=== PATIENT | female | born 1980 | race Caucasian/White ===

== ENCOUNTER 2019-09-28 10:26 | Emergency (ER) | payer OTHER, SELFPAY ==
--- NOTE | ~2019-09-28 | XR_ITS ---
EXAMINATION: XR ankle LT min 3V DATE: 09/28/2019 11:00 INDICATION: Left ankle pain. Fall. TECHNIQUE: 4 views of left ankle were obtained. COMPARISON: None. FINDINGS: There is an oblique fracture of distal fibula with medial aspect of the fracture line 2 mm distal to the level of the tibial plafond. The distal fracture fragment demonstrates 2 mm posterolate ral displacement. Joint spaces are normal. There is an enthesophyte at posterior aspect of calcaneal tuberosity. There is ankle soft tissue swelling. IMPRESSION: 1. Oblique fracture of distal fibula. Reviewed, dictated and finalized at location A.
[2019-09-28 10:44] VITALS: BP 105/68; PULSE 108; RESP 16; TEMP 37.1; O2SAT 99
--- NOTE | 2019-09-28 11:15 | ED.LOWEXIN ---
HPI - Extremity Injury (Lower) General Chief Complaint: Extremity Injury, Lower Stated Complaint: Injury Right Ankle Time Seen by Provider: 09/28/19 11:04 Source: patient and RN notes reviewed Mode of arrival: ambulatory Limitations: no limitations History of Present Illness HPI Narrative: Patient presents today complaining of left ankle injury. She was rollerskating in her kitchen just prior to arrival, slipped in some water and twisted her ankle, falling at home. She did elevate her leg for approximately 30 minutes prior to arrival, but has taken no medication or applied any ice. She currently rates her pain 6/10. Pain increases with movement. Reports previous fracture in same ankle in 1991. complaint: ankle injury Related Data Home Medications Medication Instructions Recorded Confirmed Wellbutrin XL 09/28/19 buspirone 09/28/19 omeprazole 09/28/19 Allergies Allergy/AdvReac Type Severity Reaction Status Date / Time No Known Allergies Allergy Unverified 02/03/19 11:42 Review of Systems Review of Systems: Narrative: CONSTITUTIONAL: Denies body aches, fever, chills, or sweats. EYES: Denies visual changes, redness, or discharge. ENT: Denies rhinorrhea, congestion, sore throat, or otalgia. CARDIOVASCULAR: Denies chest pain, palpitations, or edema. RESPIRATORY: Denies cough or dyspnea. GASTROINTESTINAL: Denies abdominal pain, nausea, vomiting, or diarrhea. GENITOURINARY: Denies dysuria or hematuria. SKIN: Denies rash, itching, or wounds. MUSCULOSKELETAL: Denies back pain, or myalgia.+ Left ankle injury NEUROLOGIC: Denies headache, numbness, tingling, or weakness. PSYCH: Denies depression or anxiety. PMFSH Comments At time of signature, I have reviewed and agree with nursing past medical, surgical, social and family history unless otherwise noted. Please see nursing chart for further information. There is no relevant family history pertinent to the presenting complaint Exam Narrative: Exam Narrative: GENERAL: Well-appearing, well-nourished, and in no acute distress. HEAD: Normocephalic, atraumatic. EYES: EOMI. No redness or drainage. ENT: Mucous membranes pink and moist. NECK: Normal AROM. CHEST: No respiratory distress. EXTREMITIES: Left ankle: Tenderness to the lateral malleolus with moderate edema and ecchymosis. Distal sensation intact in all toes. Capillary refill normal. Pedal pulse normal. AROM of the ankle and toes is limited due to pain, but is present. All other extremities grossly normal. SKIN: Warm, dry, no rash. Capillary refill normal. Normal skin turgor. NEURO: No focal deficits. Alert and oriented x3. Gait steady. PSYCH: Normal affect. No signs of depression or anxiety. Course Vital Signs Vital signs: Vital Signs Temperature 98.7 F 09/28/19 10:44 Pulse Rate 108 H 09/28/19 10:44 Respiratory Rate 16 09/28/19 10:44 Blood Pressure 105/68 09/28/19 10:44 Pulse Oximetry 99 09/28/19 10:44 Temperature 98.7 F 09/28/19 10:44 Pulse Rate 108 H 09/28/19 10:44 Respiratory Rate 16 09/28/19 10:44 Blood Pressure 105/68 09/28/19 10:44 Pulse Oximetry 99 09/28/19 10:44 Reviewed Procedures Orthopedic Splinting/Casting Injury #1: Splinting/Casting Date: 09/28/19 Splinting/Casting Time: 11:22 Side: left Lower Extremity Injury Location: ankle Lower Extremity Immobilizer: posterior splint Splint: customized in ED OCL: posterior Pre-Procedure Neuro Vascular Exam: normal Post-Procedure Neuro Vascular Exam: normal Other Orthopedic Equipment: crutches MDM - Extremity Injury (Lower) Differential Diagnosis Differential diagnosis: Likely ankle sprain and strain and ankle fracture Imaging Data Radiologist's impression: ITS Impressions Ankle X-Ray 09/28/19 11:06 IMPRESSION: 1. Oblique fracture of distal fibula. Critical Care Time Critical Care Time Critical Care Time: No
== END 2019-09-28 11:55 | disposition home or self-care (01) ==
PROVIDERS: Emergency Provider Nurse Practitioner
DX: S82.832A Other fracture of upper and lower end of left fibula, initial encounter for closed fracture (principal); V00.121A Fall from non-in-line roller-skates, initial encounter; Y93.51 Activity, roller skating (inline) and skateboarding
CPT/HCPCS: 29515; 73610; 99214; G0463

== ENCOUNTER 2019-09-29 12:50 | Outpatient (CLI) | payer OTHER, SELFPAY ==
[2019-09-29 14:09] LABS: Vitamin D 25 Hydroxy 12.8 ng/mL
== END 2019-09-29 12:51 | disposition home or self-care (01) ==
PROVIDERS: PCP Family Medicine; Visit Provider Orthopaedic Surgery
DX: E55.9 Vitamin D deficiency, unspecified (principal)
CPT/HCPCS: 36415; 82306; 87081

== ENCOUNTER 2019-10-02 00:33 | Day surgery (SDC) | payer OTHER, SELFPAY ==
--- NOTE | 2019-09-29 13:11 | HP_ITS ---
DATE OF SERVICE: DIAGNOSIS: Left ankle lateral malleolus fracture. HISTORY: The patient is a 39-year-old female, who has been evaluated by Dr. Sterling for following a fall on 09/27 when she was roller-skating, she twisted her left ankle, had immediate pain and she went to the [facility] in [place], had x-rays done, which showed a Spicer B lateral malleolus fracture. She was seen in the office on 09/28. At that time, the patient's states that after she was at the urgent care, she had fell again. X-rays were repeated in the office of the ankle, they do show the lateral malleolus fracture, Spicer B style. It also showed widening of the medial clear space as well. Because of the widening, Dr. Sterling has recommended ORIF of the lateral malleolus. This is an unstable fracture. PAST MEDICAL HISTORY: None. MEDICATIONS: Currently, she is on no medications except for pain medicine from the ER. ALLERGIES: NO KNOWN DRUG ALLERGIES. FAMILY HISTORY: Diabetes, heart disease. SOCIAL HISTORY: She does smoke for the last 2 years. Occasional alcohol use. PHYSICAL EXAMINATION: VITAL SIGNS: Height is 5 feet 3 inches, 180 pounds. LUNGS: Clear bilaterally. HEART: Regular rate and rhythm. HEENT: Grossly normal. EXTREMITIES: In her left ankle, she has mild to moderate swelling around the ankle and the foot. She does have intact sensation, but does complain of tingling in the dorsum of the foot in the toes. She does have a palpable dorsalis pedis pulse. SKIN: All intact. There is no blistering noted. She has no tenderness about the knee. IMAGING: X-rays again show a Spicer B lateral malleolus fracture with mild widening of the medial clear space. IMPRESSION: The patient has an unstable Spicer B lateral malleolus fracture. Again, because of the fracture being unstable, Dr. Sterling recommend an ORIF of the lateral malleolus with possible syndesmotic fixation with tight rope fixation. Once the malleolus is fixed, we will check for stability and decide whether or not syndesmotic fixation needs to be done. Surgical procedure as well as risks and complications were discussed. All questions were answered and we will proceed. The patient was advised she needs to quit smoking. We will check 25 hydroxyvitamin D as well. The patient was advised if she does not keep the ankles elevated over the course of the weekend, keep swelling down at the time of surgery. If she is too swollen or she starts to have blister, surgery may need to be delayed because of that. D I MT: Carl
[2019-09-29 18:35] VITALS: BMI 32.4
[2019-10-02] VITALS (11 sets, daily range): BP systolic 105–155; BP diastolic 59–93; PULSE 77–108; RESP 12–23; TEMP 36.2–36.6; O2SAT 92–97
--- NOTE | ~2019-10-02 | XR_ITS ---
EXAMINATION: XR surgery orthopedic DATE: 10/02/2019 11:47 INDICATION: ORIF left ankle fracture TECHNIQUE: 5 fluoroscopic spot images of the left ankle were obtained during procedure performed by Mary Sterling. Radiologist was not present for the imaging or procedure. The amount of fluoroscopy time used during this procedure was 1.3 minutes. COMPARISON: 09/28/2019 FINDINGS: Interval reduction and internal fixation of an oblique fracture of the left lateral malleolus with in terfragmentary screw and lateral plate and screws. Alignment appears near-anatomic with congruent ank le mortise. No other fractures identified. Joint spaces are normal. IMPRESSION: 1. Near-anatomic alignment post reduction and internal fixation of a lateral malleolar fracture of th e distal left fibula. Reviewed, dictated and finalized at location A. IMPRESSION: 1. Near-anatomic alignment post reduction and internal fixation of a lateral ma lleolar fracture of the distal left fibula.
--- NOTE | 2019-10-02 07:24 | WPDANESEPPF ---
Anes - Initial Pre Proc Eval Procedure: Operation Date: 10/02/19 10:00 Proposed Procedures p Open Reduction Internal Fixation Left Ankle Fracture - Isaiah Sterling MD Date/Time: 10/02/19 07:24 Surgeon: Isaiah Sterling MD Pre Op Diagnosis: Displaced Left Lateral Malleolus Fracture Patient Data Age: 39 Gender: F Height: 5 ft 3 in Weight: 83 kg Allergies Allergy/AdvReac Type Severity Reaction Status Date / Time No Known Allergies Allergy Unverified 10/02/19 08:06 Home Medications Medication Instructions Recorded Confirmed Type omeprazole 20 mg PO DAILY 09/28/19 10/02/19 History ibuprofen 400 mg PO Q6H PRN 09/29/19 10/02/19 History oxycodone-acetaminophen 1 - 2 tablet PO Q4H PRN 09/29/19 10/02/19 History Patient hx anesthesia problems: none Family hx anesthesia problems: none PMFSH Past Medical History Medical History (Updated 10/02/19 @ 07:24 by Markus Hannon MD) Anxiety GERD (gastroesophageal reflux disease) Social History Social History Gender identity (if verbalized by the patient): Female Anes - Eval Final PreProcedure Day of Procedure 10/02/19 07:24 Patient weight: obese Heart: regular rate and rhythm Lungs: clear to auscultation Airway: Mallampati scale class II Neurological: alert and oriented Last oral intake: >/= 8 hours ASA classification: II Emergent: no Anesthetic plan: proceed Anesthesia type and monitoring: general LMA and standard monitoring Informed Consent: The patient's anesthetic plan and its attendant risks and benefits were discussed with the patient/family/POA. Questions were solicited and answers provided to the satisfaction of the patient/family/POA.
[2019-10-02] MEDS: LACTATED RINGERS 1,000 ML 30 ML IV CONT ×2 (08:45→11:59)
--- NOTE | 2019-10-02 10:03 | WPDHPUPDATE1 ---
History and Physical Update Update Date/Time: 10/02/19 10:03 History and Physical has been reviewed, including an updated exam of the patient. There are NO changes in the patient's condition. Risks, benefits, and alternatives have been discussed and questions answered. Patient agrees to proceed with procedure.Numbness in foot much better. Swelling improved and mild
[2019-10-02] MEDS: ceFAZolin 2 GM/D5W 50 ML 2 GM/50 ML BAG IVPB (10:42)
[2019-10-02] MEDS: IBUPROFEN IV 800 MG/200 ML 800 MG/200 ML BAG 400 MG IVPB (10:45)
[2019-10-02] MEDS: ceFAZolin SODIUM 1 GM VIAL IRRIGATION (11:04)
[2019-10-02] MEDS: ceFAZolin SODIUM 1 GM VIAL IV PUSH (11:40)
--- NOTE | 2019-10-02 11:50 | P.OP_ITS ---
Procedure Note - Detailed Date of procedure: 10/02/19 Pre-op diagnosis: Displaced Left Lateral Malleolus Fracture SER grade 4 left lateral malleolus fracture. Post-op diagnosis: same Procedure performed: Open reduction internal fixation left lateral malleolus fracture. Description of procedure: Patient brought to the operatin room and general anesthesia was administered. the left ankle was prepped with chlorhexidine cloth. She received 2 g of Ancef and 1 g of vancomycin preoperatively. The left ankle was examined under fluoro and there was jorge luis widening of the medial clear space with external rotation. I could not appreciate any additional widening of the syndesmosis so between the shaft and the tibia. the left leg was prepped draped usual fashion. Limb was exsanguinated tourniquet elevated to 300 mm of mercury. A 4 inch longitudinal incision was made over the distal fibula centered over the fracture site. dissection was carried down through the skin to the periosteum and I looked for but did not visualize the superficial branch of peroneal nerve. with a 15 blade scalpel a few mm of periosteum was elevated off the shaft in the distal fragment adjacent to the fracture line and the fracture was cleared of little bit of entrapped soft tissue and hematoma. Anatomic reduction was achieved and held with 2 clamps. An interfragmentary screw was placed through a gliding hole 2.7 mm anterior to posterior. A 6 hole 1/3 tubular locking plate from the [employer] set was chosen and this was carefully contoured and after irrigation with antibiotic solution the plate and wound plate was applied and compressed the bone with a cortical screw through the 3rd from most proximal hole. Two locking screws were placed in the lateral malleolus fragment and 2 additional cortical screws placed proximally leaving 1 hole over the fracture site and inner fragmentary screw open. We placed a towel clip on the lateral malleolus and pulled on the lateral malleolus under fluoroscopic visualization there is no widening of the syndesmosis and the external rotation abduction stress on the foot showed no widening of medial clear space whatsoever. The wound was again irrigated antibiotic solution tourniquet had been released. Hemostasis was achieved. incision was closed with 3 0 subcuticular inter subcutaneous Vicryl and skin glue and a well-padded OCL type splint was applied the patient transferred postop recovery room stable condition. [facility] Surgeon: Isaiah Sterling MD Assistant City Attorney: Shawn More Estimated blood loss (mL): 20 Drains: No Packing: No Pathology: none sent Complications: No immediate complications Condition: stable Disposition: PACU Findings: I cancellous and cortical bone quality appeared excellent.
== END 2019-10-02 14:49 | disposition home or self-care (01) ==
PROVIDERS: PCP Family Medicine; Visit Provider Orthopaedic Surgery
PROC: (CPT 27792; principal; 2019-10-02 10:00)
DX: S82.62XA Displaced fracture of lateral malleolus of left fibula, initial encounter for closed fracture (principal); V00.121A Fall from non-in-line roller-skates, initial encounter; Y93.51 Activity, roller skating (inline) and skateboarding; K21.9 Gastro-esophageal reflux disease without esophagitis; F41.9 Anxiety disorder, unspecified; E66.9 Obesity, unspecified; Z68.35 Body mass index [BMI] 35.0-35.9, adult; Z72.0 Tobacco use
CPT/HCPCS: 27792; A9270; C1713; J0690; J1100; J1170; J1741; J2250; J2405; J2704; J3010; J3370; J7120

== ENCOUNTER 2020-06-21 07:45 | Emergency (ER) | payer OTHER, SELFPAY ==
[2020-06-21] VITALS (16 sets, daily range): BP systolic 119–144; BP diastolic 70–106; PULSE 76–96; RESP 12–122; TEMP 36.3; O2SAT 98–100
--- NOTE | ~2020-06-21 | CT_ITS ---
EXAMINATION: CT abdomen pelvis wo con DATE: 06/21/2020 08:30 INDICATION: Right flank pain. TECHNIQUE: Computed tomography (CT) of the abdomen and pelvis was performed without intravenous contr ast. Automated exposure control and iterative reconstruction technique were employed. The dose-length product was 1071.05 mGy-cm. COMPARISON: CT abdomen and pelvis 02/03/2019 FINDINGS: The visualized portions of the lung bases demonstrate minimal atelectasis. No pleural effus ion. The heart size is normal. No pericardial effusion. The liver is normal. There are gallstones in the gallbladder, which is normal in size. The spleen, pancreas, adrenal glands, and kidneys are jay l. There are no dilated loops of bowel. The appendix is normal. There are no dilated loops of bowel. There is no free intraperitoneal fluid. There is a benign bone island in the left femoral head. There are chronic bilateral L5 pars defects without spondylolisthesis. IMPRESSION: 1. No urolithiasis. 2. Cholelithiasis. No evidence of acute cholecystitis. Reviewed, dictated and finalized at location D. AN
[2020-06-21 08:02] LABS: Basophils Absolute Auto 0.1 K/mm3 (0.0-0.1); Basophils Percent Auto 0.5 % (0.2-1.2); Eosinophils Absolute Auto 0.2 K/mm3 (0-0.3); Eosinophils Percent Auto 1.9 % (0-4.4); Hematocrit 41.6 % (37.0-47.0); Hemoglobin 14.1 g/dL (12.0-15.0); Immature Granulocyte Absolute 0.09 K/mm3 (0.00-0.031); Immature Granulocyte Percent A 0.7 % (0-0.5); Lymphocytes Absolute Auto 3.21 K/mm3 (0.9-3.2); Lymphocytes Percent Auto 24.9 % (18.3-44.2); Mean Corpuscular HGB Conc 33.9 g/dl (32-36); Mean Corpuscular Hemoglobin 33.7 pg (26-34); Mean Corpuscular Volume 99.5 fl (80-100); Mean Platelet Volume 8.9 fl (7.4-10.4); Monocytes Absolute Auto 0.9 K/mm3 (0.1-0.6); Neutrophils Absolute Auto 8.4 K/mm3 (1.3-6.7); Platelet Count Result 313 k/mm3 (150-375); Red Blood Count 4.18 M/mm3 (4.2-5.4); White Blood Count 12.9 K/mm3 (4.5-10.0)
[2020-06-21 08:15] LABS: Alanine Aminotransferase 36 U/L (4-35); Albumin Level 4.2 g/dL (3.5-5.1); Alkaline Phosphatase 75 U/L (38-126); Anion Gap 9 mmol/L (8-16); Aspartate Amino Transferase 29 U/L (14-36); Bilirubin,Total 0.3 mg/dL (0.2-1.3); Blood Urea Nitrogen 16 mg/dL (7-17); Calcium 9.4 mg/dL (8.4-10.2); Carbon Dioxide 21 mmol/L (22-30); Chloride 107 mmol/L (98-107); Estimated Glomerular Filt Rate > 60; Glucose 106 mg/dL (65-105); Lipase 35 U/L (23-300); Potassium 4.3 mmol/L (3.4-5.0); Sodium 137 mmol/L (137-145)
[2020-06-21] MEDS: ONDANSETRON INJ 4 MG/2 ML VIAL IV PUSH (08:16)
[2020-06-21] MEDS: MORPHINE SULFATE (*CRX) 4 MG/ML INJ IV PUSH (08:17)
[2020-06-21] MEDS: KETOROLAC 30 MG/ML VIAL (*BKC) IV PUSH (08:17)
[2020-06-21] MEDS: SODIUM CHLORIDE 0.9% IV 1,000 ML 999 ML IV CONT (08:23)
[2020-06-21 08:31] LABS: Add Urine Microscopic? YES; Appearance Urine Clear (Clear); Bacteria Urine Trace /hpf; Bilirubin Urine Negative (Negative); Blood Urine 2+ (Negative); Color Urine Yellow (Yellow); Glucose Urine UA Negative (Negative); Ketones Urine Negative (Negative); Leukocyte Esterase Ur 1+ LEU/UL (Negative); Mucus Urine Rare /lpf; Nitrate Urine Negative (Negative); Protein Urine Negative (Negative); RBC Urine 21-50 /hpf (0-2); Specific Grav Ur 1.024 (1.001-1.035); Squamous Epithelial Cell Urine Few /hpf (Few); Urobilinogen Urine Negative mg/dL (<2.0); WBC Urine 0-3 /hpf
[2020-06-21] MEDS: HYDROmorphone HCL INJ (*CRX) 1 MG/ML SYR IV PUSH (09:44)
[2020-06-21] MEDS: BELLADONNA ALK/PHENOB ELIX 10 ML, MAG HYDROX/ALUMINUM HYD/SIMETH 30 ML, LIDOCAINE HCL 2... PO (10:11)
--- NOTE | 2020-06-21 10:12 | ED.GENADULT ---
HPI - General Adult General Chief complaint: Abdominal Pain Stated complaint: rt low back pain/abd pain Time Seen by Provider: 06/21/20 07:54 History of Present Illness HPI narrative: Patient is a 40-year-old female who presents emerged part with chief complaint of right flank pain. Patient states the pain began last night states that sharp radiates to the front patient states he is unable to get comfortable in any position. Patient also reports that she has been having epigastric discomfort as well. Patient denies vomiting denies diarrhea denies fever. Patient reports symptoms are not worsened by anything where they improved by anything Related Data Home Medications Medication Instructions Recorded Confirmed omeprazole 20 mg PO DAILY 09/28/19 10/02/19 oxycodone-acetaminophen 1 - 2 tablet PO Q4H PRN 09/29/19 10/02/19 metronidazole 06/21/20 ondansetron 06/21/20 Allergies Allergy/AdvReac Type Severity Reaction Status Date / Time No Known Allergies Allergy Verified 06/21/20 07:55 Review of Systems Review of Systems: Narrative: A 10 system review of systems was completed on the patient and is negative except for what is stated in the HPI. Nursing and ancillary documentation was reviewed. [facility] Past Medical History Medical History Anxiety GERD (gastroesophageal reflux disease) Surgical History Surgical History History of foot surgery left 2020 Family History Family History Father Heart attack Unknown Diabetes mellitus Social History Social History Smoking packs per day: 1 Smoking cigarettes per day: 20.0 Years smoked: 15 Smoking pack-years: 15.00 Smoking status: Current every day smoker Alcohol intake: current Gender identity (if verbalized by the patient): Female Exam Narrative: Exam Narrative: GENERAL: Well-appearing, well-nourished, and in no acute distress. HEAD: Normocephalic, atraumatic. EYES: PERRLA and EOMI. ENT: Nares clear, no rhinorrhea or epistaxis. Mucous membranes moist. NECK: Supple. CHEST: Clear to auscultation. No respiratory distress. HEART: Regular rate and rhythm. No murmur heard. Normal peripheral pulses. ABDOMEN: Soft, nontender, nondistended, normal active bowel sounds. EXTREMITIES: Normal range of motion. No edema. SKIN: Warm, dry, no rash. NEURO: No focal deficits. Alert and oriented x3. PSYCH: Normal mood and affect. Course Vital Signs Vital signs: Vital Signs Temperature 36.3 C L 06/21/20 07:50 Pulse Rate 96 06/21/20 07:50 Respiratory Rate 14 06/21/20 07:50 Blood Pressure 143/98 H 06/21/20 07:50 Pulse Oximetry 99 06/21/20 07:50 Temperature 36.3 C L 06/21/20 07:50 Pulse Rate 87 06/21/20 09:31 Respiratory Rate 12 06/21/20 09:31 Blood Pressure 132/70 06/21/20 09:31 Pulse Oximetry 100 06/21/20 09:31 Medical Decision Making Vital Signs Vital Signs: Vital Signs Temperature 36.3 C L 06/21/20 07:50 Pulse Rate 96 06/21/20 07:50 Respiratory Rate 14 06/21/20 07:50 Blood Pressure 143/98 H 06/21/20 07:50 Pulse Oximetry 99 06/21/20 07:50 Temperature 36.3 C L 06/21/20 07:50 Pulse Rate 87 06/21/20 09:31 Respiratory Rate 12 06/21/20 09:31 Blood Pressure 132/70 06/21/20 09:31 Pulse Oximetry 100 06/21/20 09:31 Lab Data Result diagrams: 06/21/20 07:56 06/21/20 07:56 Labs: Lab Results 06/21/20 06/21/20 06/21/20 Range/Units 07:56 07:56 07:56 WBC 12.9 H (4.5-10.0) K/mm3 RBC 4.18 L (4.2-5.4) M/mm3 Hgb 14.1 (12.0-15.0) g/dL Hct 41.6 (37.0-47.0) % MCV 99.5 (80-100) fl MCH 33.7 (26-34) pg MCHC 33.9 (32-36) g/dl RDW 12.0 (11.5-14.5) % Plt Count 313 (150-375)
== END 2020-06-21 11:15 | disposition home or self-care (01) ==
PROVIDERS: Emergency Provider Emergency Medicine; PCP Family Medicine
DX: N23 Unspecified renal colic (principal); K29.00 Acute gastritis without bleeding; K21.9 Gastro-esophageal reflux disease without esophagitis; F17.210 Nicotine dependence, cigarettes, uncomplicated; K80.20 Calculus of gallbladder without cholecystitis without obstruction
CPT/HCPCS: 36415; 74176; 80053; 81001; 81025; 83690; 85025; 96361; 96374; 96375; 99284; A9270; J1170; J1885; J2270; J2405; J7030

== ENCOUNTER 2020-08-27 10:10 | Emergency (ER) | payer OTHER, SELFPAY ==
--- NOTE | ~2020-08-27 | US_ITS ---
US abdomen limited INDICATION: Right upper quadrant pain PROCEDURE: Realtime right upper abdominal ultrasound. COMPARISON: No prior studies for comparison. FINDINGS: The pancreas is normal without focal mass or pancreatic ductal dilation. Liver echotexture is increased, consistent with fatty infiltration. There is normal directional flow in the portal ve in. There are gallstones. Common bile duct is obscured. No sonographic Mullen's sign. IMPRESSION: 1: Cholelithiasis. 2: Fatty infiltration of the liver. Reviewed, dictated and finalized at location B.
--- NOTE | ~2020-08-27 | XR_ITS ---
EXAMINATION: XR chest 1V portable EXAM DATE: 08/27/2020 10:49 INDICATION: Epigastric pain, fever, back rash. Painful. TECHNIQUE: Portable AP frontal chest x-ray was obtained. There is no prior study for comparison. FINDINGS: The lungs are clear. There are no pleural effusions. The cardiomediastinal silhouette is within normal limits. There is no pneumothorax suspected. The bones and soft tissues are unremarkab le. IMPRESSION: No acute cardiopulmonary findings. Reviewed, dictated and finalized at location A.
--- NOTE | ~2020-08-27 | NM_ITS ---
EXAMINATION: NM hepatobiliary w pharm DATE: 08/27/2020 15:29 INDICATION: Abdominal pain. Gallstones. COMPARISON: Ultrasound 08/27/2020 TECHNIQUE: 5.2 mCi Tc-99m mebrofenin (Choletec) was administered intravenously. Scintigraphic images of the abdomen were obtained for one hour. Then, 1.9 mcg sincalide (Kinevac) IV was administered, an d imaging was continued for 30 minutes. FINDINGS: There is normal clearance of radiotracer from the blood pool. There is homogeneous tracer u ptake by the liver. Activity progresses to the bowel and gallbladder. Gallbladder ejection fraction (GBEF) was 2%. Note that most patients with gallbladder dysfunction have GBEF < 35%, which overlaps w ith the broad normal range of 10-90%. IMPRESSION: 1. Low gallbladder ejection fraction, consistent with gallbladder dysfunction and/or chronic cholecy stitis. Reviewed, dictated and finalized at location A. IMPRESSION: 1. Low gallbladder ejection fraction, consistent with gallbladder dysfunction and/or chronic cholecystitis.
[2020-08-27 10:19] VITALS: BP 154/102; PULSE 106; RESP 15; TEMP 37.3; O2SAT 98
--- NOTE | 2020-08-27 10:23 | ECG_ITS ---
Measurements Intervals [place] Rate: 100 P: 63 SC: 141 QRS: 55 QRSD: 89 T: 29 QT: 346 QTc: 447 Interpretive Statements SINUS TACHYCARDIA BASELINE WANDER- III, AVL, AVF, V1-V3 BORDERLINE ECG Electronically Signed On 08-27-2020 10:29:48 CDT by Roly Desouza D.O.
[2020-08-27 10:44] LABS: Basophils Percent Auto 0.4 % (0.2-1.2); Eosinophils Absolute Auto 0.1 K/mm3 (0-0.3); Eosinophils Percent Auto 1.5 % (0-4.4); Hematocrit 37.4 % (37.0-47.0); Immature Granulocyte Absolute 0.05 K/mm3 (0.00-0.031); Immature Granulocyte Percent A 0.5 % (0-0.5); Lymphocytes Absolute Auto 2.13 K/mm3 (0.9-3.2); Lymphocytes Percent Auto 23.1 % (18.3-44.2); Mean Corpuscular HGB Conc 34.8 g/dl (32-36); Mean Corpuscular Hemoglobin 33.5 pg (26-34); Mean Corpuscular Volume 96.4 fl (80-100); Mean Platelet Volume 8.5 fl (7.4-10.4); Monocytes Absolute Auto 0.7 K/mm3 (0.1-0.6); Monocytes Percent Auto 7.9 % (2.6-8.5); Neutrophils Absolute Auto 6.1 K/mm3 (1.3-6.7); Neutrophils Percent Auto 66.6 % (45.5-73.1); Platelet Count Result 205 k/mm3 (150-375); Red Blood Count 3.88 M/mm3 (4.2-5.4); Red Cell Distribution Width 12.3 % (11.5-14.5); White Blood Count 9.2 K/mm3 (4.5-10.0)
[2020-08-27 10:56] LABS: Alanine Aminotransferase 35 U/L (4-35); Albumin Level 3.8 g/dL (3.5-5.1); Alkaline Phosphatase 68 U/L (38-126); Anion Gap 6 mmol/L (8-16); Aspartate Amino Transferase 25 U/L (14-36); Bilirubin,Total 0.4 mg/dL (0.2-1.3); Blood Urea Nitrogen 10 mg/dL (7-17); Calcium 7.9 mg/dL (8.4-10.2); Carbon Dioxide 24 mmol/L (22-30); Chloride 107 mmol/L (98-107); Estimated CRCL calculation 79 ml/min; Estimated Glomerular Filt Rate > 60; Glucose 109 mg/dL (65-105); Lipase 24 U/L (23-300); Potassium 3.4 mmol/L (3.4-5.0); Sodium 137 mmol/L (137-145)
[2020-08-27] MEDS: SODIUM CHLORIDE 0.9% IV 1,000 ML 999 ML IV CONT (11:07)
[2020-08-27 11:08] LABS: Troponin I < 0.012 ng/mL (0.000-0.034)
[2020-08-27 11:40] LABS: Add Urine Microscopic? YES; Appearance Urine Turbid (Clear); Bacteria Urine Trace /hpf; Bilirubin Urine Negative (Negative); Blood Urine 2+ (Negative); Color Urine Amber (Yellow); Glucose Urine UA Negative (Negative); Ketones Urine Negative (Negative); Leukocyte Esterase Ur Negative LEU/UL (Negative); Mucus Urine Heavy /lpf; Nitrate Urine Negative (Negative); Protein Urine Negative (Negative); Specific Grav Ur 1.029 (1.001-1.035); Squamous Epithelial Cell Urine Many /hpf (Few); Urobilinogen Urine Negative mg/dL (<2.0)
[2020-08-27] MEDS: BELLADONNA ALK/PHENOB ELIX 10 ML, MAG HYDROX/ALUMINUM HYD/SIMETH 30 ML, LIDOCAINE HCL 2... PO (11:47)
--- NOTE | 2020-08-27 11:59 | PC.NURSE ---
Nuclear medicine called regarding test, per staff in nuclear medicine test will be done at 1400, keep patient NPO. Patient reports not eating or drinking since 9pm last night.
--- NOTE | 2020-08-27 13:15 | PC.NURSE ---
1315 - Patient to nuclear medicine at this time, per nuclear med tech test takes approximately 1.5 hours. Patient reports reduced pain level after administration of IV Tylenol and GI cocktail medications as ordered.
--- NOTE | 2020-08-27 15:28 | PC.NURSE ---
1528 - Patient's partner, Belia updated via phone with patient's permission.
--- NOTE | 2020-08-27 15:47 | ED.CHESTPAIN ---
HPI - Chest Pain General Chief Complaint: Chest Pain Stated Complaint: Abd Pain Time Seen by Provider: 08/27/20 10:13 Source: patient Mode of arrival: EMS Limitations: no limitations History of Present Illness HPI narrative: Patient presents with chief complaint of epigastric and right upper quadrant pain that has been intermittent over the past 2 to 3 months. Patient states she has seen her primary care regarding the pain and she believes it is related to her gallbladder. Patient states she is supposed see her primary care on Wednesday and she is supposed to see a GI specialist tomorrow. Patient states that she is on omeprazole. Patient states that she notices that the pain worsens after eating. Patient denies fever, chills, nausea, vomiting, diarrhea. Related Data Home Medications Medication Instructions Recorded Confirmed omeprazole 20 mg PO DAILY 09/28/19 10/02/19 oxycodone-acetaminophen 1 - 2 tablet PO Q4H PRN 09/29/19 10/02/19 metronidazole 06/21/20 ondansetron 06/21/20 Allergies Allergy/AdvReac Type Severity Reaction Status Date / Time No Known Allergies Allergy Verified 06/21/20 07:55 Review of Systems Review of Systems: Narrative: CONSTITUTIONAL: Denies fever, chills, or sweats. EYES: Denies visual changes, redness, or discharge. ENT: Denies rhinorrhea, congestion, sore throat, or otalgia. CARDIOVASCULAR: Denies chest pain, palpitations, or edema. RESPIRATORY: Denies cough or dyspnea. GASTROINTESTINAL: Reports epigastric and right upper quadrant pain denies nausea, vomiting, or diarrhea. GENITOURINARY: Denies dysuria or hematuria. SKIN: Denies itching. MUSCULOSKELETAL: Denies back pain, joint pain, or myalgia. NEUROLOGIC: Denies headache, numbness, dizziness, or weakness. PSYCHIATRIC: Denies anxiety or depression. [facility] Past Medical History Medical History Anxiety GERD (gastroesophageal reflux disease) Surgical History Surgical History History of foot surgery left 2020 Family History Family History Father Heart attack Unknown Diabetes mellitus Social History Social History Smoking packs per day: 1 Smoking cigarettes per day: 20.0 Years smoked: 15 Smoking pack-years: 15.00 Smoking status: Current every day smoker Alcohol intake: current Gender identity (if verbalized by the patient): Female Exam Narrative: Exam Narrative: GENERAL: Well-appearing, well-nourished, and in no acute distress. HEAD: Normocephalic, atraumatic. EYES: PERRLA and EOMI. ENT: Nares clear, no rhinorrhea or epistaxis. Mucous membranes moist. Oropharynx without tonsillar hypertrophy exudate or other lesions. Bilateral TMs pearly stroud nonbulging NECK: Supple. No adenopathy or masses. Range of motion intact. CHEST: Clear to auscultation. No respiratory distress. No wheezes rales or rhonchi HEART: Regular rate and rhythm. No murmur heard. Normal peripheral pulses. ABDOMEN: Soft, tenderness with palpation, nondistended, normal active bowel sounds. EXTREMITIES: Normal range of motion. No edema. SKIN: Warm, dry, no rash. NEURO: No focal deficits. Alert and oriented x3. PSYCH: Normal mood and affect. Course Vital Signs Vital signs: Vital Signs Temperature 99.2 F 08/27/20 10:19 Pulse Rate 106 H 08/27/20 10:19 Respiratory Rate 15 08/27/20 10:19 Blood Pressure 154/102 H 08/27/20 10:19 Pulse Oximetry 98 08/27/20 10:19 Temperature 99.2 F 08/27/20 10:19 Pulse Rate 99 08/27/20 15:57 Respiratory Rate 18 08/27/20 15:57 Blood Pressure 128/88 08/27/20 15:57 Pulse Oximetry 100 08/27/20 15:57 MDM - Chest Pain MDM Narrative Medical decision making narrative: Explained to the patient that she does not show signs of gallbladder o
[2020-08-27 15:57] VITALS: BP 128/88; PULSE 99; RESP 18; O2SAT 100
== END 2020-08-27 16:04 | disposition home or self-care (01) ==
PROVIDERS: Physician Assistant; Emergency Provider Emergency Medicine; PCP Family Medicine
DX: K82.8 Other specified diseases of gallbladder (principal); K21.9 Gastro-esophageal reflux disease without esophagitis; F17.210 Nicotine dependence, cigarettes, uncomplicated; K80.20 Calculus of gallbladder without cholecystitis without obstruction; K76.0 Fatty (change of) liver, not elsewhere classified
CPT/HCPCS: 36415; 71045; 76705; 78227; 80053; 81001; 83690; 84484; 85025; 93005; 96361; 96365; 99284; A9270; A9537; J0131; J2805; J7030

== ENCOUNTER → 2020-09-06 00:58 | Outpatient (CLI) | payer OTHER, SELFPAY ==
[2020-09-06 19:49] LABS: SARS-CoV-2 RNA PCR Negative
== END ==
PROVIDERS: PCP Family Medicine; Visit Provider Surgery
DX: Z01.812 Encounter for preprocedural laboratory examination (principal); Z20.822 Contact with and (suspected) exposure to COVID-19
CPT/HCPCS: 36415; 80076; 82150; 83690; C9803; U0003; U0005

== ENCOUNTER 2020-09-06 08:41 | Outpatient (CLI) | payer OTHER, SELFPAY ==
[2020-09-06 09:48] LABS: Alanine Aminotransferase 39 U/L (4-35); Albumin Level 4.5 g/dL (3.5-5.1); Alkaline Phosphatase 71 U/L (38-126); Amylase 57 U/L (30-110); Aspartate Amino Transferase 27 U/L (14-36); Bilirubin,Total 0.5 mg/dL (0.2-1.3); Lipase 41 U/L (23-300)
== END 2020-09-06 08:42 | disposition home or self-care (01) ==
LOC: ANHSURGERY 08:46
PROVIDERS: PCP Family Medicine; Visit Provider Surgery
DX: K80.10 Calculus of gallbladder with chronic cholecystitis without obstruction (principal); Z01.818 Encounter for other preprocedural examination
CPT/HCPCS: 36415; 80076; 82150; 83690

== ENCOUNTER 2020-09-09 01:36 | Day surgery (SDC) | payer OTHER, SELFPAY ==
[2020-09-05 10:44] VITALS: BMI 39.3
[2020-09-09] VITALS (13 sets, daily range): BP systolic 115–146; BP diastolic 61–112; PULSE 80–90; RESP 12–18; TEMP 36.4; O2SAT 93–100
[2020-09-09] MEDS: ACETAMINOPHEN 500 MG TABLET 1000 MG PO (09:29)
--- NOTE | 2020-09-09 09:36 | WPDANESEPPF ---
Anes - Initial Pre Proc Eval Procedure: Operation Date: 09/09/20 11:00 Proposed Procedures p Laparoscopic Cholecystectomy, possible open, possible Intraoperative Cholangiogram - Rich Christianson MD Date/Time: 09/09/20 09:36 Surgeon: Rich Christianson MD Pre Op Diagnosis: Cholelithasis, Chronic Cholecystitis Patient Data Age: 40 Gender: F Height: 5 ft 3 in Weight: 100.7 kg Allergies Allergy/AdvReac Type Severity Reaction Status Date / Time No Known Allergies Allergy Verified 09/09/20 09:26 Home Medications Medication Instructions Recorded Confirmed Type omeprazole 20 mg PO BID 09/28/19 09/09/20 History ondansetron 4 mg disintegrating 4 mg TRANSLINGUAL Q6H PRN #10 09/03/20 09/09/20 Rx tablet tablet ascorbic acid (vitamin C) [Vitamin 500 mg PO DAILY 09/05/20 09/09/20 History C] cholecalciferol (vitamin D3) 125 mcg PO DAILY 09/05/20 09/09/20 History [Vitamin D3] Patient hx anesthesia problems: none Family hx anesthesia problems: none PMFSH Past Medical History Medical History Anxiety Anxiety Chronic pain syndrome Depression GERD (gastroesophageal reflux disease) Hx of migraines Stomach ulcer Surgical History Surgical History History of foot surgery left 2020 Family History Family History Father Heart attack Unknown Diabetes mellitus Mother Suicide Other Diabetes mellitus Hypertension Social History Social History Smoking packs per day: 0.75 Smoking cigarettes per day: 15.0 Years smoked: 22 Smoking pack-years: 16.50 Smoking status: Current every day smoker Tobacco type: cigarettes Alcohol intake: current Drinks per week: 1 Substance use: never Substance use type: does not use Living arrangements: with family Gender identity (if verbalized by the patient): Female Spiritual care concerns: No Anes - Eval Final PreProcedure Day of Procedure 09/09/20 09:36 Patient weight: obese Heart: regular rate and rhythm Lungs: decreased breath sounds Airway: Mallampati scale class II Neurological: alert and oriented Last oral intake: >/= 8 hours Emergent: no Anesthetic plan: proceed Anesthesia type and monitoring: general ETT and standard monitoring Informed Consent: The patient's anesthetic plan and its attendant risks and benefits were discussed with the patient/family/POA. Questions were solicited and answers provided to the satisfaction of the patient/family/POA.
[2020-09-09] MEDS: LACTATED RINGERS 1,000 ML 30 ML IV CONT ×2 (09:42→12:12)
[2020-09-09] MEDS: KETOROLAC 15 MG/ML VIAL (*BKC) IV PUSH (09:44)
--- NOTE | 2020-09-09 10:07 | WPDHPUPDATE1 ---
History and Physical Update Update Date/Time: 09/09/20 10:07 History and Physical has been reviewed, including an updated exam of the patient. There are NO changes in the patient's condition. Risks, benefits, and alternatives have been discussed and questions answered. Patient agrees to proceed with procedure.
[2020-09-09] MEDS: ceFAZolin 2 GM/D5W 50 ML 2 GM/50 ML BAG IVPB (10:26)
[2020-09-09] MEDS: BUPIVACAINE/EPINEPHRINE 0.5% 30 ML VIAL INFILTRATE (11:00)
[2020-09-09] MEDS: ONDANSETRON INJ 4 MG/2 ML VIAL IV PUSH (12:31)
[2020-09-09] MEDS: fentaNYL CITRATE INJ (*CRX) 100 MCG/2 ML VIAL 25 MCG IV PUSH ×8 (12:31→14:06)
--- NOTE | 2020-09-09 12:48 | P.OP_ITS ---
Procedure Note - Detailed Date of procedure: 09/09/20 Pre-op diagnosis: Cholelithasis, Chronic Cholecystitis Chronic Cholecystitis with Cholelithiasis Post-op diagnosis: same Procedure performed: Laparoscopic Cholecystectomy Description of procedure: Patient was seen preoperatively in the holding area and risks, benefits and alternatives confirmed. Patient was taken to the operating room and general anesthesia was induced. A time out was then preformed with the surgery team confirming patient and site of surgery. The abdomen was prepped and draped in the usual sterile fashion. Incision was made just below the umbilicus with an 11 blade knife. I placed 2 stay sutures of O- Vicryl on either side of the mid- line fascia beneath the umbilicus and was then able to slide in the Devries cannula through the fascial defect into the peritoneum. First under low flow and then under high flow the abdomen was insufflated with carbon dioxide never exceeding a pressure of 14. Three 5 mm trocars were then introduced under direct vision. The following trocars were introduced under direct vision: a 5 mm in the epigastrium and two 5 mm trocars along the right costal margin laterally in the subcostal area. There were no significant adhesions to the gallbladder. I then carefully used the L-shaped cautery and the [place] dissector to dissect out the triangle of [place]. I then was able to dissect out both the cystic duct and cystic artery and identify a window of safety. The gall bladder was grasped and the cystic duct and artery were dissected free and clipped with an 5 mm endo-clip corporate travel agent. The cystic duct and artery were clipped with use of 2 clips on the patient's side 1 on the gallbladder side utilizing a 5 mm endoclip-corporate travel agent. The cystic duct was then transected. The cystic artery was also transected at this point. The gall bladder was removed using electrocautery and then removed from the abdomen using an endobag . [In order to get the large stone out of the abdomen within the gallbladder I did make the fascial defect slightly larger with Bower scissors.] The trocars were removed visualizing hemostasis and the remaining gas evacuated. The large trocar site at the umbilicus was closed with use of the 2 stay sutures of 0 Vicryl mentioned above and also a figure of 8 O-Vicryl suture. The 2 stay sutures mentioned above on either side of the fascia were also tied together to help approximate this midline fascia. Further local anesthetic was placed into each incision for postop pain control. The skin incisions were closed with subcuticular suture of 4-0 Monocryl. Surgical glue then was applied to all the incisions. Patient tolerated the procedure well was taken to the recovery room in good condition. Implants: none Anesthesia: GETA Surgeon: Rich Christianson MD Internet Marketing Executive: Torrie MARION, OR press assistant and feeder Estimated blood loss (mL): 30 Drains: No Packing: No Pathology: yes (Gallbladder) Complications: No immediate complications Condition: stable Disposition: PACU Findings: No evidence of inflammation. Definite palpable stones upon removal of the gallbladder from the abdomen.
--- NOTE | 2020-09-09 13:20 | SUR.PHASEI ---
PT C/O NAUSEA HAS RETURNED. CALLED DR ROTH FOR ORDERS
[2020-09-09] MEDS: diphenhydrAMINE HCl INJ 50 MG/ML VIAL 25 MG IV PUSH (13:25)
[2020-09-09] MEDS: SCOPOLAMINE 1.5 MG PATCH TRANSDERM (13:26)
--- NOTE | 2020-09-09 13:32 | SUR.PHASEI ---
PT SLEEPING. RESP EVEN UNLABORED.
--- NOTE | 2020-09-09 14:13 | SUR.PHASEI ---
PT DOZING IN INTERVALS. STATES PAIN COMES AND GOES. PT VERY RELAXED. READY TO GO TO [facility].
== END 2020-09-09 15:30 | disposition home or self-care (01) ==
PROVIDERS: PCP Family Medicine; Visit Provider Surgery
PROC: 0FT44ZZ Resection of Gallbladder, Percutaneous Endoscopic Approach (ICD-10-PCS; CPT 47562; principal; 2020-09-09 11:00)
DX: K80.10 Calculus of gallbladder with chronic cholecystitis without obstruction (principal); F41.8 Other specified anxiety disorders; K21.9 Gastro-esophageal reflux disease without esophagitis; K25.9 Gastric ulcer, unspecified as acute or chronic, without hemorrhage or perforation; F17.210 Nicotine dependence, cigarettes, uncomplicated
CPT/HCPCS: 47562; 88304; A9270; J0690; J1100; J1200; J1885; J2250; J2405; J2704; J2710; J3010; J7120

== ENCOUNTER 2020-11-05 07:52 | Emergency (ER) | payer OTHER, SELFPAY ==
[2020-11-05] VITALS (8 sets, daily range): BP systolic 117–154; BP diastolic 75–91; PULSE 62–80; RESP 18; TEMP 37; O2SAT 98–100
--- NOTE | ~2020-11-05 | CT_ITS ---
EXAMINATION: CT abdomen pelvis wo con EXAM DATE: 11/05/2020 08:47 INDICATION: Right flank pain. Cholecystectomy one month ago. Urinary frequency. Nausea. TECHNIQUE: Spiral CT of the abdomen and pelvis was performed without contrast. Axial, coronal and sag ittal images were reviewed. The dose-length product (DLP) for this examination was 1263.28 mGy-cm. The exposure was tailored according to patient size (auto mA exposure control), and iterative reconst ruction (ASIR) was used as additional dose reduction technique. Comparison is made to prior examinati on from 06/21/2020. FINDINGS: There is no nephrolithiasis or hydronephrosis. The uterus and ovaries are unremarkable, n o adnexal mass. The bladder is unremarkable. The liver, spleen, adrenal glands and pancreas are unr emarkable. There are cholecystectomy clips. There is no retroperitoneal or pelvic lymphadenopathy. There is mild scattered arteriosclerotic disease. There are no findings to suggest appendicitis. The stomach and small bowel are unremarkable. There is expected amount of colonic stool. No free intraperitoneal gas. The heart is normal in size. T here are no pericardial or pleural effusions. Bibasilar linear atelectasis. There are no osteoblast ic or osteolytic lesions identified. 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 IMPRESSION: 1. No nephrolithiasis, hydronephrosis or acute intra-abdominal findings. 2. Development of bibasilar linear atelectasis. Reviewed, dictated and finalized at location [facility].
[2020-11-05 08:15] LABS: Basophils Absolute Auto 0.1 K/mm3 (0.0-0.1); Basophils Percent Auto 0.5 % (0.2-1.2); Eosinophils Absolute Auto 0.2 K/mm3 (0-0.3); Hematocrit 41.9 % (37.0-47.0); Hemoglobin 13.6 g/dL (12.0-15.0); Immature Granulocyte Absolute 0.04 K/mm3 (0.00-0.031); Immature Granulocyte Percent A 0.4 % (0-0.5); Lymphocytes Absolute Auto 3.23 K/mm3 (0.9-3.2); Lymphocytes Percent Auto 29.2 % (18.3-44.2); Mean Corpuscular HGB Conc 32.5 g/dl (32-36); Mean Corpuscular Volume 101.7 fl (80-100); Mean Platelet Volume 8.8 fl (7.4-10.4); Monocytes Absolute Auto 0.8 K/mm3 (0.1-0.6); Monocytes Percent Auto 6.8 % (2.6-8.5); Neutrophils Absolute Auto 6.8 K/mm3 (1.3-6.7); Neutrophils Percent Auto 61.1 % (45.5-73.1); Platelet Count Result 282 k/mm3 (150-375); Red Blood Count 4.12 M/mm3 (4.2-5.4); Red Cell Distribution Width 12.8 % (11.5-14.5); White Blood Count 11.1 K/mm3 (4.5-10.0)
[2020-11-05 08:23] LABS: Add Urine Microscopic? YES; Appearance Urine Clear (Clear); Bilirubin Urine Negative (Negative); Blood Urine 3+ (Negative); Color Urine Yellow (Yellow); Glucose Urine UA Negative (Negative); Ketones Urine Negative (Negative); Leukocyte Esterase Ur Negative LEU/UL (Negative); Mucus Urine Rare /lpf; Nitrate Urine Negative (Negative); Protein Urine 1+ mg/dL (Negative); RBC Urine 0-2 /hpf (0-2); Squamous Epithelial Cell Urine Many /hpf (Few); WBC Urine 0-3 /hpf
[2020-11-05 08:28] LABS: Anion Gap 12 mmol/L (8-16); Blood Urea Nitrogen 12 mg/dL (7-17); Carbon Dioxide 25 mmol/L (22-30); Chloride 104 mmol/L (98-107); Estimated CRCL calculation 83 ml/min; Estimated Glomerular Filt Rate > 60; Glucose 95 mg/dL (65-105); Potassium 3.7 mmol/L (3.4-5.0); Sodium 141 mmol/L (137-145); Specific Grav Ur 1.035 (1.001-1.035)
[2020-11-05] MEDS: KETOROLAC 30 MG/ML VIAL (*BKC) IV PUSH (08:36)
--- NOTE | 2020-11-05 08:38 | PC.NURSE ---
Pt taken to CT
--- NOTE | 2020-11-05 10:43 | ED.GENADULT ---
HPI - General Adult General Chief complaint: Urogenital-Female Stated complaint: R Flank Pain Time Seen by Provider: 11/05/20 08:14 History of Present Illness HPI narrative: Patient is a 40-year-old female who presents ER with right-sided flank pain. Onset over the last couple days. Radiates into her lower abdomen. Associate with urinary frequency and urgency. Patient reports history of chronic back pain as well she has aching along the right side of her back. No fevers or chills or sweats. No numbness or tingling of the arms or legs. Patient has taken oxycodone without relief of pain. Related Data Home Medications Medication Instructions Recorded Confirmed omeprazole 20 mg PO BID 09/28/19 09/28/20 ascorbic acid (vitamin C) [Vitamin 500 mg PO DAILY 09/05/20 09/28/20 C] cholecalciferol (vitamin D3) 125 mcg PO DAILY 09/05/20 09/28/20 [Vitamin D3] Allergies Allergy/AdvReac Type Severity Reaction Status Date / Time No Known Allergies Allergy Verified 11/05/20 08:02 Review of Systems Review of Systems: All systems reviewed & are unremarkable except as noted in HPI and below Constitutional: Constitutional: Denies chills, Denies fever(s) and Denies weakness ENT: Denies nasal congestion and Denies sore throat Gastrointestinal: Gastrointestinal: Reports abdominal pain, Denies constipation, Denies diarrhea, Denies nausea and Denies vomiting Genitourinary: Genitourinary: Denies hematuria, Reports nocturia, Denies dysuria and Reports flank pain Musculoskeletal: Musculoskeletal: Reports back pain, Denies arthralgias, Denies joint swelling and Reports muscle cramps Neurologic: Denies focal weakness and Denies numbness PMFSH Past Medical History Medical History Anxiety Anxiety Chronic pain syndrome Depression GERD (gastroesophageal reflux disease) Hx of migraines Stomach ulcer Surgical History Surgical History History of foot surgery left 2020 Hx laparoscopic cholecystectomy Family History Family History Father Heart attack Unknown Diabetes mellitus Mother Suicide Other Diabetes mellitus Hypertension Social History Social History Smoking packs per day: 0.75 Smoking cigarettes per day: 15.0 Years smoked: 22 Smoking pack-years: 16.50 Smoking status: Current every day smoker Tobacco type: cigarettes Alcohol intake: current Drinks per week: 1 Substance use: never Substance use type: does not use Gender identity (if verbalized by the patient): Female Spiritual care concerns: No Exam Narrative: Exam Narrative: GENERAL: Well-appearing, well-nourished, and in no acute distress. HEAD: Normocephalic, atraumatic. ENT: Mucous membranes moist. CHEST: Clear to auscultation. No respiratory distress. HEART: Regular rate and rhythm. Normal peripheral pulses. ABDOMEN: Soft, nontender, nondistended. No CVA tenderness. Back: No midline tenderness of thoracic or lumbar spine. There is reproducible paraspinal muscle tenderness along the right T/L-spine worse around L3. EXTREMITIES: Normal range of motion. No edema. SKIN: Warm, dry, no rash. NEURO: Alert and oriented x3. Course Course Emergency Course: Patient informed of results. Feel patient's discomfort is likely related to muscle spasms in back. Recommend anti-inflammatories and muscle relaxers. Patient verbalized understanding. Vital Signs Vital signs: Vital Signs Temperature 98.6 F 11/05/20 08:03 Pulse Rate 79 11/05/20 08:03 Respiratory Rate 18 11/05/20 08:03 Blood Pressure 154/91 H 11/05/20 08:03 Pulse Oximetry 99 11/05/20 08:03 Temperature 98.6 F 11/05/20 08:03 Pulse Rate 68 11/05/20 10:15 Respiratory Rate 18 11/05/20 10:15 Blood Pressure 139/91 H 06
--- NOTE | 2020-11-05 11:05 | PC.NURSE ---
Report given to DONI Jimenez
== END 2020-11-05 11:35 | disposition home or self-care (01) ==
PROVIDERS: Emergency Provider Emergency Medicine; PCP Family Medicine
DX: R25.2 Cramp and spasm (principal); F17.210 Nicotine dependence, cigarettes, uncomplicated; F41.9 Anxiety disorder, unspecified; F32.9 Major depressive disorder, single episode, unspecified; K21.9 Gastro-esophageal reflux disease without esophagitis
CPT/HCPCS: 36415; 74176; 80048; 81001; 81025; 85025; 96374; 99284; J1885

== ENCOUNTER 2021-01-03 13:24 | Emergency (ER) | payer OTHER, SELFPAY ==
[2021-01-03 13:41] VITALS: BP 138/85; PULSE 89; RESP 18; TEMP 36.4; O2SAT 100
--- NOTE | 2021-01-03 14:51 | ED.SKABFB ---
HPI - Skin/Abscess/Foreign Bdy General Chief complaint: Skin/Abscess/Foreign Body Stated complaint: rash Time Seen by Provider: 01/03/21 14:44 Source: patient and RN notes reviewed Mode of arrival: ambulatory Limitations: no limitations History of Present Illness HPI narrative: Patient presents today complaining of a severely pruritic rash to her bilateral arms, right back, buttocks x2 to 3 days. She is unsure of the cause, but could possibly be due to staying in a motel over the weekend. Reports symptoms have been worsening since onset. She has tried calamine lotion and [id number] itch cream without relief. Her partner does not have similar symptoms. MD complaint: rash Related Data Home Medications Medication Instructions Recorded Confirmed omeprazole 20 mg PO BID 09/28/19 09/28/20 ascorbic acid (vitamin C) [Vitamin 500 mg PO DAILY 09/05/20 09/28/20 C] cholecalciferol (vitamin D3) 125 mcg PO DAILY 09/05/20 09/28/20 [Vitamin D3] Allergies Allergy/AdvReac Type Severity Reaction Status Date / Time No Known Allergies Allergy Verified 11/05/20 08:02 Review of Systems Review of Systems: CONSTITUTIONAL: Denies body aches, fever, chills, or sweats. EYES: Denies visual changes, redness, or discharge. ENT: Denies rhinorrhea, congestion, sore throat, or otalgia. CARDIOVASCULAR: Denies chest pain, palpitations, or edema. RESPIRATORY: Denies cough or dyspnea. GASTROINTESTINAL: Denies abdominal pain, nausea, vomiting, or diarrhea. GENITOURINARY: Denies dysuria or hematuria. SKIN: Denies wounds.+ Pruritic rash MUSCULOSKELETAL: Denies back pain, joint pain, or myalgia. NEUROLOGIC: Denies headache, numbness, tingling, or weakness. PSYCH: Denies depression or anxiety. [facility]LY [facility] Past Medical History Medical History Anxiety Anxiety Chronic pain syndrome Depression GERD (gastroesophageal reflux disease) Hx of migraines Stomach ulcer Surgical History Surgical History History of foot surgery left 2019 Hx laparoscopic cholecystectomy Family History Family History Father Heart attack Unknown Diabetes mellitus Mother Suicide Other Diabetes mellitus Hypertension Social History Social History Smoking packs per day: 0.75 Smoking cigarettes per day: 15.0 Years smoked: 22 Smoking pack-years: 16.50 Smoking status: Current every day smoker Tobacco type: cigarettes Alcohol intake: current Drinks per week: 1 Substance use: never Substance use type: does not use Gender identity (if verbalized by the patient): Female Spiritual care concerns: No Comments At time of signature, I have reviewed and agree with nursing past medical, surgical, social and family history unless otherwise noted. Please see nursing chart for further information. There is no relevant family history pertinent to the presenting complaint Exam Narrative: GENERAL: Well-appearing, well-nourished, and in no acute distress. HEAD: Normocephalic, atraumatic. EYES: EOMI. No redness or drainage. Conjunctivae normal. ENT: Mucous membranes pink and moist. NECK: Normal AROM. CHEST: No respiratory distress. EXTREMITIES: Normal range of motion. No edema. SKIN: Warm, dry.. Capillary refill normal. Normal skin turgor. Cluster of erythematous papules to the left second finger, left upper arm, right mid back, left lower leg, bilateral buttocks. No drainage or signs of bacterial infection. NEURO: No focal deficits. Alert and oriented x3. Gait steady. PSYCH: Normal affect. No signs of depression or anxiety. Course Vital Signs Vital signs: Vital Signs Temperature 97.6 F 01/03/21 13:41 Pulse Rate 89 01/03/21 13:41 Respiratory Rate 18 01/03/21 13:41 Blood Pr
== END 2021-01-03 15:00 | disposition home or self-care (01) ==
PROVIDERS: Emergency Provider Nurse Practitioner; PCP Family Medicine
DX: L30.9 Dermatitis, unspecified (principal); F17.210 Nicotine dependence, cigarettes, uncomplicated; F41.9 Anxiety disorder, unspecified; F32.9 Major depressive disorder, single episode, unspecified; K21.9 Gastro-esophageal reflux disease without esophagitis
CPT/HCPCS: 99213; G0463

== ENCOUNTER 2021-03-08 10:11 | Emergency (ER) | payer OTHER, SELFPAY ==
--- NOTE | ~2021-03-08 | CT_ITS ---
EXAMINATION: CT abdomen pelvis w con DATE: 03/08/2021 12:41 INDICATION: Intractable vomiting. Nausea. Diarrhea. Status post cholecystectomy. TECHNIQUE: Computed tomography (CT) of the abdomen and pelvis was performed with 100 cc Omnipaque 350 intravenous contrast. Automated exposure control and iterative reconstruction technique were employe d. Exam dose: 650.03 mGy-cm total exam DLP. COMPARISON: 11/05/2020 CT abdomen pelvis FINDINGS: The lung bases are clear of infiltrate or consolidation. Normal heart size. No pericardial or pleural effusion. Very small sliding hiatal hernia. The gallbladder is surgically absent. No bile duct or pancreatic duct dilatation. No hepatic, splenic , pancreatic, adrenal or renal space-occupying mass lesion. No urinary tract calculus or hydrouretero nephrosis. The urinary bladder is relatively evacuated, unremarkable. The uterus and adnexal areas ap pear normal. Normal caliber of the abdominal aorta. No intraperitoneal or retroperitoneal or pelvic mass lesion or adenopathy or ascites. Normal appendix. There is nonspecific diffuse thickening and fatty infiltration of the wall of the rectum and colon; c onsider infectious or inflammatory colitis. No bowel obstruction or free air. Status post cholecystectomy. No bowel obstruction or intraperitoneal free air. Small fat-containing umbilical hernia. Bilateral L5 pars interarticularis defects without spondylolisthesis. IMPRESSION: Nonspecific diffuse thickening of the wall of the rectum and colon; consider infectious or inflammatory colitis No bowel obstruction or free air Status post cholecystectomy Bilateral L5 pars intra-articular is defects Reviewed, dictated and finalized at [facility]. Reviewed, dictated and finalized at location A. IMPRESSION: Nonspecific diffuse thickening of the wall of the rectum and colon ; consider infectious or inflammatory colitis No bowel obstruction or free air Status post cholecystectomy Bilateral L5 pars intra-articular is defects
[2021-03-08 10:13] VITALS: BP 154/122; PULSE 72; RESP 20; TEMP 36.6; O2SAT 98
[2021-03-08 10:48] LABS: Basophils Absolute Auto 0.1 K/mm3 (0.0-0.1); Basophils Percent Auto 0.3 % (0.2-1.2); Eosinophils Absolute Auto 0.1 K/mm3 (0-0.3); Eosinophils Percent Auto 0.3 % (0-4.4); Hematocrit 44.8 % (37.0-47.0); Hemoglobin 15.6 g/dL (12.0-15.0); Immature Granulocyte Absolute 0.11 K/mm3 (0.00-0.031); Immature Granulocyte Percent A 0.6 % (0-0.5); Lymphocytes Absolute Auto 2.44 K/mm3 (0.9-3.2); Lymphocytes Percent Auto 13.9 % (18.3-44.2); Mean Corpuscular HGB Conc 34.8 g/dl (32-36); Mean Corpuscular Hemoglobin 33.2 pg (26-34); Mean Corpuscular Volume 95.3 fl (80-100); Mean Platelet Volume 9.3 fl (7.4-10.4); Monocytes Percent Auto 5.5 % (2.6-8.5); Neutrophils Absolute Auto 13.9 K/mm3 (1.3-6.7); Neutrophils Percent Auto 79.4 % (45.5-73.1); Platelet Count Result 375 k/mm3 (150-375); Red Cell Distribution Width 12.6 % (11.5-14.5); White Blood Count 17.5 K/mm3 (4.5-10.0)
[2021-03-08 11:41] LABS: Alanine Aminotransferase 40 U/L (4-35); Albumin Level 4.9 g/dL (3.5-5.1); Alkaline Phosphatase 77 U/L (38-126); Anion Gap 13 mmol/L (8-16); Aspartate Amino Transferase 29 U/L (14-36); Bilirubin,Total 0.6 mg/dL (0.2-1.3); Blood Urea Nitrogen 6 mg/dL (7-17); Calcium 9.3 mg/dL (8.4-10.2); Carbon Dioxide 20 mmol/L (22-30); Chloride 107 mmol/L (98-107); Estimated CRCL calculation 94 ml/min; Estimated Glomerular Filt Rate > 60; Glucose 138 mg/dL (65-110); Lipase 239 U/L (23-300); Potassium 4.1 mmol/L (3.4-5.0); Sodium 140 mmol/L (137-145)
[2021-03-08] MEDS: METOCLOPRAMIDE HCL INJ 10 MG/2 ML VIAL IV PUSH (12:08)
[2021-03-08] MEDS: LACTATED RINGERS 1,000 ML 999 ML IV CONT ×2 (12:09→14:43)
--- NOTE | 2021-03-08 12:29 | ED.NAVMDI ---
HPI - Nausea/Vomiting/Diarrhea General Chief complaint: Nausea/Vomiting/Diarrhea Stated complaint: Abd Pain Time Seen by Provider: 03/08/21 11:05 Source: patient and family Mode of arrival: ambulatory Limitations: no limitations History of Present Illness HPI Narrative: 40-year-old female Here for severe nausea and vomiting x1 day Patient had a history of recurrent episodes of epigastric pain and nausea and vomiting culminating and having a cholecystectomy about 6 months ago Since then those things have been essentially alleviated however she has chronic diarrhea now with up to 20 bowel movements a day Has not discussed that problem with her physicians yet Yesterday she had dinner as usual and followed by some twisted tea cocktails She awakened in the wee hours with nausea and vomiting which has persisted and occurred numerous times and was not relieved by fluids and Zofran given to her by EMS She has some diffuse abdominal pain now but did not have any prior to the onset of these symptoms No dysuria frequency or hematuria No blood in the stools No fever Related Data Home Medications Medication Instructions Recorded Confirmed omeprazole 20 mg PO BID 09/28/19 09/28/20 ascorbic acid (vitamin C) [Vitamin 500 mg PO DAILY 09/05/20 09/28/20 C] cholecalciferol (vitamin D3) 125 mcg PO DAILY 09/05/20 09/28/20 [Vitamin D3] Allergies Allergy/AdvReac Type Severity Reaction Status Date / Time No Known Allergies Allergy Verified 11/05/20 08:02 Review of Systems Review of Systems: All systems reviewed & are unremarkable except as noted in HPI and below Constitutional: Constitutional: Reports no additional constitutional complaints, Denies chills, Denies fever(s) and Denies headache(s) Eyes: Eyes: Reports no additional eye complaints and Denies change in vision ENT: Denies headache(s) and Denies sore throat Cardiovascular: Cardiovascular: Denies chest pain and Denies dyspnea Respiratory: Respiratory: Denies cough and Denies dyspnea Gastrointestinal: Gastrointestinal: Reports abdominal pain, Reports diarrhea, Reports nausea and Reports vomiting Genitourinary: Genitourinary: Denies urinary frequency and Denies dysuria Musculoskeletal: Musculoskeletal: Denies deformity, Denies arthralgias, Denies joint swelling and Denies numbness Integumentary/Breasts: Skin/Breast: Denies rash and Denies wounds Neurologic: Denies headache(s), Denies focal weakness and Denies numbness Psychiatric: Psychiatric: Reports no additional psychiatric complaints Endocrine: Endocrine: Reports no additional endocrine complaints Hematologic/Lymphatic: Hematologic/Lymphatic: Reports no additional hematologic/lymphatic complaints Allergic/Immunologic: Allergic/Immunologic: Reports no additional allergic/immunologic complaints PMFSH Past Medical History Medical History Anxiety Anxiety Chronic pain syndrome Depression GERD (gastroesophageal reflux disease) Hx of migraines Stomach ulcer Surgical History Surgical History History of foot surgery left 2020 Hx laparoscopic cholecystectomy Family History Family History Father Heart attack Unknown Diabetes mellitus Mother Suicide Other Diabetes mellitus Hypertension Social History Social History Smoking packs per day: 0.75 Smoking cigarettes per day: 15.0 Years smoked: 22 Smoking pack-years: 16.50 Smoking status: Current every day smoker Tobacco type: cigarettes Alcohol intake: current Drinks per week: 1 Substance use: never Substance use type: does not use Gender identity (if verbalized by the patient): Female Spiritual care concerns: No Exam Const: General: cooperative and alert Nutritional Appearance: obese O
[2021-03-08 12:40] LABS: Add Urine Microscopic? YES; Appearance Urine Clear (Clear); Bacteria Urine Trace /hpf; Bilirubin Urine Negative (Negative); Blood Urine Negative (Negative); Color Urine Yellow (Yellow); Glucose Urine UA Negative (Negative); Ketones Urine 1+ mg/dL (Negative); Leukocyte Esterase Ur Negative LEU/UL (Negative); Mucus Urine Rare /lpf; Nitrate Urine Negative (Negative); Protein Urine 2+ mg/dL (Negative); Specific Grav Ur 1.025 (1.001-1.035); Squamous Epithelial Cell Urine Few /hpf (Few); Urobilinogen Urine Negative mg/dL (<2.0); WBC Urine 0-3 /hpf
[2021-03-08] MEDS: HALOPERIDOL LACTATE 5 MG/ML VIAL IV PUSH (14:43)
[2021-03-08 15:16] VITALS: BP 137/102; PULSE 72; O2SAT 100
[2021-03-08 15:49] VITALS: BP 142/99; PULSE 84; RESP 16; O2SAT 100
== END 2021-03-08 16:11 | disposition home or self-care (01) ==
PROVIDERS: Emergency Provider Emergency Medicine; PCP Family Medicine
DX: K52.9 Noninfective gastroenteritis and colitis, unspecified (principal); R11.10 Vomiting, unspecified; F17.210 Nicotine dependence, cigarettes, uncomplicated
CPT/HCPCS: 36415; 74177; 80053; 81001; 81025; 83690; 85025; 96361; 96374; 96375; 99284; J1630; J2765; J7120; Q9967

== ENCOUNTER 2021-09-06 05:22 | Emergency (ER) | payer OTHER, SELFPAY ==
[2021-09-06] VITALS (17 sets, daily range): BP systolic 102–143; BP diastolic 66–101; PULSE 59–99; RESP 12–18; TEMP 36.6; O2SAT 99–100
--- NOTE | ~2021-09-06 | XR_ITS ---
EXAMINATION: XR chest 2V EXAM DATE: 09/06/2021 06:05 INDICATION: Chest pain. TECHNIQUE: Frontal and lateral projections of the chest obtained and reviewed. Comparison is made to prior examination from 08/27/2020. FINDINGS: The lungs are clear. There are no pleural effusions. The cardiomediastinal silhouette is within normal limits. There is no pneumothorax suspected. The bones and soft tissues are unremarkab le. IMPRESSION: No acute cardiopulmonary findings. Reviewed, dictated and finalized at location A.
--- NOTE | 2021-09-06 05:30 | ECG_ITS ---
Measurements Intervals [place] Rate: 100 P: 72 [place]: 153 QRS: 66 QRSD: 75 T: 16 QT: 353 QTc: 456 Interpretive Statements SINUS TACHYCARDIA NONSPECIFIC T-WAVE ABNORMALITY ABNORMAL RHYTHM ECG COMPARED TO ECG 08/27/2020 10:17:43 T-WAVE ABNORMALITY NOW PRESENT NO SIGNIFICANT CHANGE Electronically Signed On 09-06-2021 6:48:45 CDT by Brinda Ibarra M.D.
[2021-09-06 05:38] LABS: Basophils Percent Auto 0.5 % (0.2-1.2); Eosinophils Absolute Auto 0.2 K/mm3 (0-0.3); Eosinophils Percent Auto 2.2 % (0-4.4); Hematocrit 40.9 % (37.0-47.0); Hemoglobin 13.7 g/dL (12.0-15.0); Immature Granulocyte Absolute 0.02 K/mm3 (0.00-0.031); Immature Granulocyte Percent A 0.2 % (0-0.5); Lymphocytes Absolute Auto 2.39 K/mm3 (0.9-3.2); Mean Corpuscular HGB Conc 33.5 g/dl (32-36); Mean Corpuscular Hemoglobin 32.1 pg (26-34); Mean Corpuscular Volume 95.8 fl (80-100); Mean Platelet Volume 9.2 fl (7.4-10.4); Monocytes Absolute Auto 0.6 K/mm3 (0.1-0.6); Monocytes Percent Auto 7.3 % (2.6-8.5); Neutrophils Percent Auto 60.8 % (45.5-73.1); Platelet Count Result 288 k/mm3 (150-375); Red Blood Count 4.27 M/mm3 (4.2-5.4); Red Cell Distribution Width 12.7 % (11.5-14.5); White Blood Count 8.2 K/mm3 (4.5-10.0)
[2021-09-06 05:49] LABS: Partial Thromboplastin Time 30.7 SECONDS (22.3-36.8); Prothrombin Time 12.9 Seconds (11.1-14.7)
[2021-09-06 05:50] LABS: Alanine Aminotransferase 15 U/L (4-35); Albumin Level 4.1 g/dL (3.5-5.1); Alkaline Phosphatase 65 U/L (38-126); Anion Gap 6 mmol/L (8-16); Aspartate Amino Transferase 19 U/L (14-36); Bilirubin,Total 0.5 mg/dL (0.2-1.3); Blood Urea Nitrogen 14 mg/dL (7-17); Carbon Dioxide 27 mmol/L (22-30); Chloride 106 mmol/L (98-107); Estimated CRCL calculation 87 ml/min; Estimated Glomerular Filt Rate > 60; Glucose 104 mg/dL (65-110); Lipase 42 U/L (23-300); Potassium 3.6 mmol/L (3.4-5.0); Sodium 139 mmol/L (137-145)
[2021-09-06 06:02] LABS: Troponin I < 0.012 ng/mL (0.000-0.034)
--- NOTE | 2021-09-06 06:57 | ED.CHESTPAIN ---
HPI - Chest Pain General Chief Complaint: Chest Pain Stated Complaint: MULT C/O, R ARM PAIN Time Seen by Provider: 09/06/21 05:32 Source: patient History of Present Illness HPI narrative: 41-year-old female presents to the emergency department for evaluation of right arm and hand pain. Patient does work at [employer] for the last 6 weeks. Patient states she has been having arm pain for approximately last 5 weeks. Patient states her arm pain is typically located at her wrist and involving her thumb. Patient states the pain is worsened when she wakes up. Patient states the pain radiates from her wrist up her arm. Patient also states that the pain sometimes radiates up into her shoulder. Patient denies any specific incident of injury. Patient states she does perform repetitive tasks at her job. Patient denies any prior cardiac history. Patient denies any prior injury to that hand or wrist. Patient denies any current chest pain or shortness of breath. Related Data Home Medications Medication Instructions Recorded Confirmed omeprazole 20 mg PO BID 09/28/19 09/28/20 ascorbic acid (vitamin C) [Vitamin 500 mg PO DAILY 09/05/20 09/28/20 C] cholecalciferol (vitamin D3) 125 mcg PO DAILY 09/05/20 09/28/20 [Vitamin D3] Allergies Allergy/AdvReac Type Severity Reaction Status Date / Time No Known Allergies Allergy Verified 09/06/21 05:30 Review of Systems Review of Systems: CONSTITUTIONAL: Denies fever, chills, or sweats. EYES: Denies visual changes, redness, or discharge. ENT: Denies rhinorrhea, congestion, sore throat, or otalgia. CARDIOVASCULAR: No current chest pain but does have right posterior shoulder pain intermittently RESPIRATORY: Denies cough or dyspnea. GASTROINTESTINAL: Denies abdominal pain, nausea, vomiting, or diarrhea. GENITOURINARY: Denies dysuria or hematuria. SKIN: Denies rash or itching. MUSCULOSKELETAL: Right hand pain and intermittent right hand tingling NEUROLOGIC: Denies headache, numbness, or weakness. [facility] Past Medical History Medical History Anxiety Anxiety Chronic pain syndrome Depression GERD (gastroesophageal reflux disease) Hx of migraines Stomach ulcer Surgical History Surgical History History of foot surgery left 2019 Hx laparoscopic cholecystectomy Family History Family History Father Heart attack Unknown Diabetes mellitus Mother Suicide Other Diabetes mellitus Hypertension Social History Social History Smoking packs per day: 0.75 Smoking cigarettes per day: 15.0 Years smoked: 22 Smoking pack-years: 16.50 Smoking status: Current every day smoker Tobacco type: cigarettes Alcohol intake: current Drinks per week: 1 Substance use: never Substance use type: does not use Gender identity (if verbalized by the patient): Female Spiritual care concerns: No Exam Narrative: APPEARANCE: Well appearing, no pain, no distress, well-nourished. HEAD: normocephalic, atraumatic. EYES: PERRLA/EOMI, conjunctivae clear. NOSE: Normal no drainage RESPIRATORY: Airway patent, respirations nonlabored. Clear to auscultation bilaterally, no rales, rhonchi, wheezing. CARDIOVASCULAR: Regular rate and rhythm without murmurs rubs or gallops. ABDOMINAL: Soft, nontender, nondistended, normal bowel sounds MUSCULOSKELETAL: Moves all extremities. Strength/ROM intact, No edema, No calf tenderness. Positive Tinel and Phalen test on right. NEURO: Alert. Cranial nerves II through XII intact. Grossly intact SKIN: Warm, dry. Normal Color Course Course Emergency Course: Symptoms are consistent with carpal tunnel of the right. Patient did have positive Phalen and Tinel signs. EKG showed normal sinus rhythm with no evidence of acute STEMI. Patient's initial t
[2021-09-06] MEDS: KETOROLAC 15 MG/ML VIAL (*BKC) IV PUSH (07:08)
[2021-09-06] MEDS: PROCHLORPERAZINE EDISYLATE 10 MG/2 ML VIAL IV PUSH (07:08)
[2021-09-06] MEDS: SODIUM CHLORIDE 0.9% IV 1,000 ML 999 ML IV CONT (07:08)
== END 2021-09-06 08:15 | disposition home or self-care (01) ==
PROVIDERS: Emergency Provider Emergency Medicine; PCP Physician Assistant
DX: G56.01 Carpal tunnel syndrome, right upper limb (principal); K21.9 Gastro-esophageal reflux disease without esophagitis; G89.4 Chronic pain syndrome; F17.210 Nicotine dependence, cigarettes, uncomplicated
CPT/HCPCS: 36415; 71046; 80053; 83690; 84484; 85025; 85610; 85730; 93005; 96361; 96374; 96375; 99284; J0780; J1885; J7030

== ENCOUNTER 2021-09-27 22:57 | Emergency (ER) | payer OTHER, SELFPAY ==
[2021-09-27 22:58] VITALS: BP 147/96; PULSE 90; RESP 16; TEMP 36.8; O2SAT 100
--- NOTE | 2021-09-28 00:15 | ED.DENTAL ---
HPI - Dental/Oral General Chief complaint: Dental/Oral Stated complaint: jaw pain and swelling Time Seen by Provider: 09/28/21 00:02 Source: patient History of Present Illness HPI Narrative: Patient Rachel with upper jaw pain and facial swelling. She has intermittent dental pain for the past couple months however symptoms over the past 2 to 3 days gotten progressively worse. She did see a dentist but walked in close to closing time and was instructed to return Wednesday morning for evaluation. Patient ports her pain is intense she is unable to make it to that appointment so she came to the ER for evaluation. Pain is achy, constant, worse with moving her jaw, radiates across her entire job. She denies any fevers difficulty swallowing as of breath nausea vomiting or diarrhea Related Data Home Medications Medication Instructions Recorded Confirmed omeprazole 20 mg PO BID 09/28/19 09/28/20 ascorbic acid (vitamin C) [Vitamin 500 mg PO DAILY 09/05/20 09/28/20 C] cholecalciferol (vitamin D3) 125 mcg PO DAILY 09/05/20 09/28/20 [Vitamin D3] Allergies Allergy/AdvReac Type Severity Reaction Status Date / Time No Known Allergies Allergy Verified 09/27/21 23:37 Review of Systems Review of Systems: CONSTITUTIONAL: Denies fever, chills, or sweats. EYES: Denies visual changes, redness, or discharge. ENT: Denies rhinorrhea, congestion, sore throat, or otalgia. CARDIOVASCULAR: Denies chest pain, palpitations, or edema. RESPIRATORY: Denies cough or dyspnea. GASTROINTESTINAL: Denies abdominal pain, nausea, vomiting, or diarrhea. GENITOURINARY: Denies dysuria or hematuria. SKIN: Denies rash or itching. MUSCULOSKELETAL: Denies back pain, joint pain, or myalgia. NEUROLOGIC: Denies headache, numbness, dizziness, or weakness. PSYCHIATRIC: Denies anxiety or depression. All systems reviewed & are unremarkable except as noted in HPI and below PMFSH Past Medical History Medical History Anxiety Anxiety Chronic pain syndrome Depression GERD (gastroesophageal reflux disease) Hx of migraines Stomach ulcer Surgical History Surgical History History of foot surgery left 2020 Hx laparoscopic cholecystectomy Family History Family History Father Heart attack Unknown Diabetes mellitus Mother Suicide Other Diabetes mellitus Hypertension Social History Social History Smoking packs per day: 0.75 Smoking cigarettes per day: 15.0 Years smoked: 22 Smoking pack-years: 16.50 Smoking status: Current every day smoker Tobacco type: cigarettes Alcohol intake: current Drinks per week: 1 Substance use: never Substance use type: does not use Gender identity (if verbalized by the patient): Female Spiritual care concerns: No Exam Narrative: GENERAL: Well-appearing, well-nourished, and in no acute distress. HEAD: Normocephalic, atraumatic. EYES: PERRLA and EOMI. ENT: Nares clear, no rhinorrhea or epistaxis. Mucous membranes moist. Right-sided facial swelling there is diffusely poor dentition with focal tenderness palpation of the right upper and lower molars NECK: Supple. No masses. No JVD EXTREMITIES: Normal range of motion. No edema. SKIN: Warm, dry, no rash. NEURO: No focal deficits. Alert and oriented x3. PSYCH: Normal mood and affect. Course Vital Signs Vital signs: Vital Signs Temperature 36.8 C 09/27/21 22:58 Pulse Rate 90 09/27/21 22:58 Respiratory Rate 16 09/27/21 22:58 Blood Pressure 147/96 H 09/27/21 22:58 Pulse Oximetry 100 09/27/21 22:58 Temperature 36.8 C 09/27/21 22:58 Pulse Rate 90 09/27/21 22:58 Respiratory Rate 16 09/27/21 22:58 Blood Pressure 147/96 H 09/27/21 22:58 Pulse Oximetry 100 09/27/21 22:58 MDM - Dental/Oral
[2021-09-28] MEDS: AMOXICILLIN/CLAVULANATE K 875-125 MG TAB 1 TABLET PO (00:28)
[2021-09-28] MEDS: oxyCODONE/ACETAMINOPHEN (*CRX) 5-325 MG TABLET 1 TABLET PO (00:28)
== END 2021-09-28 01:08 | disposition home or self-care (01) ==
PROVIDERS: Emergency Provider Emergency Medicine; PCP Physician Assistant
DX: K04.7 Periapical abscess without sinus (principal); K21.9 Gastro-esophageal reflux disease without esophagitis; F17.210 Nicotine dependence, cigarettes, uncomplicated
CPT/HCPCS: 99283; A9270

== ENCOUNTER 2021-11-04 14:20 | Outpatient (CLI) | payer OTHER, SELFPAY ==
--- NOTE | ~2021-11-04 | XR_ITS ---
XR lumbar spine 2-3V DATE: 11/04/2021 14:48 INDICATION: Chronic low back pain, radiating to right buttock TECHNIQUE: AP, lateral, coned lateral lumbosacral views COMPARISON: None FINDINGS: Normal alignment of the lumbar spine. No fracture or bone destruction or spondylolisthesis is noted. There is mild degenerative disc disease throughout the lumbar spine. The sacroiliac joints are intact. Status post cholecystectomy. IMPRESSION: Mild degenerative disc disease throughout the lumbar spine Reviewed, dictated and finalized at location A.
== END 2021-11-04 14:21 | disposition home or self-care (01) ==
LOC: ANHIMG 14:25
PROVIDERS: PCP Physician Assistant; Visit Provider Physician Assistant
DX: M51.36 Other intervertebral disc degeneration, lumbar region (principal)
CPT/HCPCS: 72100

== ENCOUNTER 2021-12-25 15:36 | Emergency (ER) | payer OTHER, SELFPAY ==
[2021-12-25 15:47] VITALS: BP 126/77; PULSE 79; RESP 16; TEMP 36.3; O2SAT 100
--- NOTE | 2021-12-25 15:58 | ED.DENTAL ---
HPI - Dental/Oral General Chief complaint: Dental/Oral Stated complaint: tooth pain Time Seen by Provider: 12/25/21 15:52 Source: patient Mode of arrival: ambulatory Limitations: no limitations History of Present Illness HPI Narrative: Patient presents today complaining of right upper dental pain. 2 days ago she had a tooth extracted in the right upper quadrant and is having severe pain. She was on 3 courses of antibiotics prior to the extraction. She currently rates her pain 8/10 and has been taking Tylenol and ibuprofen without relief. She does have an emergency appointment at 10 AM tomorrow with her dentist. States she has been following all the proper instructions to prevent dry socket. Related Data Allergies Allergy/AdvReac Type Severity Reaction Status Date / Time No Known Allergies Allergy Verified 12/25/21 15:39 Review of Systems Review of Systems: CONSTITUTIONAL: Denies body aches, fever, chills, or sweats. EYES: Denies visual changes, redness, or discharge. ENT: Denies rhinorrhea, congestion, sore throat, or otalgia.+ Dental pain CARDIOVASCULAR: Denies chest pain, palpitations, or edema. RESPIRATORY: Denies cough or dyspnea. GASTROINTESTINAL: Denies abdominal pain, nausea, vomiting, or diarrhea. GENITOURINARY: Denies dysuria or hematuria. SKIN: Denies rash, itching, or wounds. MUSCULOSKELETAL: Denies back pain, joint pain, or myalgia. NEUROLOGIC: Denies headache, numbness, tingling, or weakness. PSYCH: Denies depression or anxiety. [facility] Past Medical History Medical History Anxiety Anxiety Chronic pain syndrome Depression GERD (gastroesophageal reflux disease) Hx of migraines Stomach ulcer Surgical History Surgical History History of foot surgery left 2020 Hx laparoscopic cholecystectomy Family History Family History Father Heart attack Unknown Diabetes mellitus Mother Suicide Other Diabetes mellitus Hypertension Social History Social History Smoking packs per day: 0.75 Smoking cigarettes per day: 15.0 Years smoked: 22 Smoking pack-years: 16.50 Smoking status: Current every day smoker Tobacco type: cigarettes Alcohol intake: current Drinks per week: 1 Substance use: never Substance use type: does not use Gender identity (if verbalized by the patient): Female Spiritual care concerns: No Comments At time of signature, I have reviewed and agree with nursing past medical, surgical, social and family history unless otherwise noted. Please see nursing chart for further information. There is no relevant family history pertinent to the presenting complaint Exam Narrative: GENERAL: Well-appearing, well-nourished, and in no acute distress. HEAD: Normocephalic, atraumatic. EYES: EOMI. No redness or drainage. Conjunctivae normal. ENT: Mucous membranes pink and moist. Pain in the socket of tooth #5. Site appears normal. There does not seem to be an empty socket. Mild swelling of the gumline, that would seem to be normal based on recent extraction. NECK: Normal AROM. Supple. No lymphadenopathy. CHEST: No respiratory distress. EXTREMITIES: Normal range of motion. No edema. SKIN: Warm, dry, no rash. Capillary refill normal. Normal skin turgor. NEURO: No focal deficits. Alert and oriented x3. Gait steady. PSYCH: Normal affect. No signs of depression or anxiety. Course Course Level of Care: Express Care Visit Vital Signs Vital signs: Vital Signs Temperature 97.3 F L 12/25/21 15:47 Pulse Rate 79 12/25/21 15:47 Respiratory Rate 16 12/25/21 15:47 Blood Pressure 126/77 12/25/21 15:47 Pulse Oximetry 100 12/25/21 15:47 Oxygen Delivery Room Air 12/25/21 15:47 Temperature 97.3 F L 11/29
== END 2021-12-25 16:02 | disposition home or self-care (01) ==
PROVIDERS: Emergency Provider Nurse Practitioner
DX: G89.18 Other acute postprocedural pain (principal); F17.210 Nicotine dependence, cigarettes, uncomplicated; K21.9 Gastro-esophageal reflux disease without esophagitis
CPT/HCPCS: 99213; G0463

== ENCOUNTER 2022-07-22 09:32 | Emergency (ER) | payer OTHER, SELFPAY ==
[2022-07-22 09:55] VITALS: BP 142/91; PULSE 80; RESP 18; TEMP 36.4; O2SAT 100
--- NOTE | 2022-07-22 10:26 | PC.NURSE ---
pt leaving, no reason given to staff. encouraged to return or speak to pcp. pt agreeable to this
== END 2022-07-22 11:44 | disposition left against medical advice (07) ==
LOC: ANHED 11:41
DX: R11.2 Nausea with vomiting, unspecified (principal)
CPT/HCPCS: 99199

== ENCOUNTER 2022-08-31 15:06 | Outpatient (CLI) | payer OTHER, SELFPAY ==
--- NOTE | ~2022-08-31 | MM_ITS ---
EXAMINATION: MM screening kay BI w luis HISTORY: Screening mammogram TECHNIQUE: Craniocaudal and mediolateral oblique 3-D tomosynthesis images were obtained and synthetic 2-D images were generated. CAD analysis was submitted and interpreted. COMPARISON: No prior mammogram is available for comparison at this institution. BREAST PARENCHYMAL COMPOSITION: There are scattered areas of fibroglandular density. FINDINGS: There is no evidence of suspicious mass, calcification, or architectural distortion to sugg est malignancy in either breast. There has been no suspicious interval change. IMPRESSION: 1. No mammographic evidence of malignancy. 2. Recommend routine screening mammography in one year. BI-RADS Category 1: Negative Reviewed, dictated and finalized at location A.
== END 2022-08-31 15:07 | disposition home or self-care (01) ==
LOC: ANHIMG 15:08
PROVIDERS: PCP Physician Assistant; Visit Provider Physician Assistant
DX: Z12.31 Encounter for screening mammogram for malignant neoplasm of breast (principal)
CPT/HCPCS: 77063; 77067

== ENCOUNTER 2022-09-03 08:56 | Outpatient (CLI) | payer OTHER, SELFPAY ==
--- NOTE | 2022-09-03 11:30 | NEURO_ITS ---
Impression: # Complains of pain and numbness of right hand. # Right moderate Carpal Tunnel Syndrome. # No ulnar neuropathy. # Normal needle/EMG exam. Motor Nerve Conduction Upper Extremities Median Nerve Conduction Velocity (m/sec) Terminal Latency (msec) Response Voltage(mV) Elbow-Wrist Wrist Elbow Wrist Right 64 4.5 2 1 Left 64 3.2 6 6 Ulnar Nerve Conduction Velocity (m/sec) Terminal Latency (msec) Response Voltage(mV) Above Elbow Below Elbow Wrist Above Elbow Below Elbow Wrist Right 61 2.3 5 6 Left 64 2.3 6 6 F-Wave Latency Median (ms) Ulnar (ms) Right 27.0 25.2 Left 26.2 26.4 Sensory Nerve Conduction Upper Extremities Median Nerve Stimulation Terminal Latency (msec) Wrist/Digit Response Voltage (uV) Wrist Right 3.1/3.1 34/60 Left 2.9/2.9 79/63 Ulnar Nerve Stimulation Terminal Latency (msec) Wrist/Digit Response Voltage (uV) Wrist Right 2.1 15 Left 2.3 40 Radial Nerve Terminal Latency (msec) Response Voltage(mV) Right 2.1 19 Left 1.8 24 Left Right Muscles Examined Fibrillation Fasciculation Scarcity Voltage Duration Left Right Left Right Left Right Left Right Left Right Deltoid Biceps X X Brachioradialis Triceps X X Pronator Teres X X Ext Indicis X X Ext Digitorum X X Abd Poll Brev X X 1st Dorsal Interosseus X X Abd Dig Min MTDD
== END 2022-09-03 08:57 | disposition home or self-care (01) ==
LOC: ANHNEURO 08:58
PROVIDERS: PCP Physician Assistant; Visit Provider Physician Assistant
DX: G56.01 Carpal tunnel syndrome, right upper limb (principal)
CPT/HCPCS: 95886; 95911

== ENCOUNTER 2022-09-17 09:29 | Outpatient (CLI) | payer OTHER, SELFPAY ==
--- NOTE | ~2022-09-17 | US_ITS ---
. US abdomen complete DATE: 09/17/2022 10:32 INDICATION: Abdominal pain TECHNIQUE: Real-time imaging and Doppler analysis of the abdomen COMPARISON: 03/08/2021 CT abdomen pelvis FINDINGS: The gallbladder is surgically absent. No hepatic or pancreatic space-occupying mass lesion is evident. Normal hepatopedal portal venous german w. The common bile duct measures 2.2 mm, normal. No renal mass lesion or hydronephrosis. Normal splenic size. Normal caliber of the abdominal aorta. The inferior vena cava is unremarkable. IMPRESSION: Status post cholecystectomy Reviewed, dictated and finalized at Location A. Reviewed, dictated and finalized at location L. IMPRESSION: Status post cholecystectomy
--- NOTE | ~2022-09-17 | US_ITS ---
Pelvic ultrasound. Clinical History: Pain, irregular menstruation Technique: Realtime transabdominal and transvaginal scanning of the pelvis was performed. Color flow Doppler and Doppler spectral analysis were performed. Findings: The uterus is anteverted. The endometrial stripe has a thickness of 2 mm. No focal mass is identified. The right ovary measures 2.5 x 2.7 x 2.1 cm. Follicular right ovarian cyst measures 2 cm in diameter. The left ovary measures 2.5 x 1.4 x 1.6 cm. No significant left ovarian or adnexal mass is seen. Vascular flow present in both ovaries on Doppler spectral analysis. There is no evidence of free fluid in the cul de sac. Impression: Unremarkable pelvic ultrasound. Reviewed, dictated and finalized at [facility]. Impression: Unremarkable pelvic ultrasound.
== END 2022-09-17 09:30 | disposition home or self-care (01) ==
LOC: ANHIMG 09:31
PROVIDERS: PCP Physician Assistant; Visit Provider Physician Assistant
DX: R10.9 Unspecified abdominal pain (principal); N92.6 Irregular menstruation, unspecified; Z90.49 Acquired absence of other specified parts of digestive tract
CPT/HCPCS: 76700; 76830; 76856

== ENCOUNTER 2023-01-11 12:41 | Outpatient (CLI) | payer OTHER, SELFPAY ==
--- NOTE | ~2023-01-11 | XR_ITS ---
EXAMINATION: XR chest 2V Exam Date/Time: 01/11/2023 12:53 CDT HISTORY: PRODUCTIVE COUGH Comparison: 09/06/2021. RESULT: Lines, tubes, and devices: None. Lungs and pleura: Clear. Cardiomediastinal silhouette: Stable. Other: No acute osseous or upper abdominal finding. IMPRESSION: No acute cardiopulmonary process. Reviewed, dictated and finalized at location K.
== END 2023-01-11 12:42 | disposition home or self-care (01) ==
LOC: ANHIMG 12:46
PROVIDERS: PCP Physician Assistant; Visit Provider Physician Assistant
DX: R05.9 Cough, unspecified (principal)
CPT/HCPCS: 71046

== ENCOUNTER 2023-02-15 09:53 | Outpatient (CLI) | payer OTHER, SELFPAY ==
--- NOTE | 2023-02-15 13:02 | WPDPFTINT ---
PFT Procedure Performed PFT Procedure Performed Plethysmography (Lung Vol) Diffusing Cap (DLCO) Flow Vol Loop Spirometry w/o Bronchodil PFT Interpretation This is a pulmonary function test with spirometry, plethysmography and diffusing capacity. The test was performed and results interpreted in accordance with the 2019 and 2005 ATS/ERS Task Force guidelines respectively using the Global Lung Function Initiative-2012 reference equations. Patient demonstrated good effort and cooperation. Reproducibility criteria were met. The quality of the spirometry maneuver was Grade A. Findings: Spirometry: The contour the inspiratory and expiratory flow tracing are normal. The FVC is 2.79 L, 79% predicted. The FEV1 is 2.14 L, 74% predicted. The FEV1: FVC ratio 77%. Plethysmography: The total lung capacity is 4.31 L, 88% predicted. The functional residual capacity is 2.61 L, 97% predicted. The residual volume is 1.52 L, 98% predicted. Diffusion capacity: The diffusing capacity unadjusted for hemoglobin and carboxyhemoglobin is 16.3, 70% predicted. The diffusing capacity adjusted for alveolar volume is 4.26, 89% predicted. Impression: The spirometry is normal without evidence of an obstructive abnormality. The lung volumes are normal without evidence of and restrictive abnormality. The FVC and FEV1 are mildly decreased without an obstructive or restrictive abnormality. This is an abnormal but nonspecific finding. The diffusing capacity unadjusted for hemoglobin and carboxyhemoglobin is mildly decreased and normalizes when adjusted for alveolar volume. There are no prior studies for comparison
== END 2023-02-15 09:54 | disposition home or self-care (01) ==
PROVIDERS: PCP Physician Assistant; Visit Provider Physician Assistant
DX: R05.9 Cough, unspecified (principal)
CPT/HCPCS: 94375; 94726; 94729

== ENCOUNTER 2023-04-12 09:30 | Outpatient (RCR) | payer OTHER, SELFPAY ==
--- NOTE | 2023-02-08 09:23 | OTOPEVAL1 ---
Assessment and note entered by Cristiano Cunningham, OTR/L, CHT Evaluation Information Assessment Status Evaluation Diagnosis (R) carpal tunnel syndrome Subjective Information Patient is s/p right carpal tunnel release on . She reports that her hand was wrapped too tight and her circulation was cut off. Had to go to the ER due to severe pain. She is right handed and reports having difficulties with being able to put any pressure through her palm. She states she has been having to use her left hand to brush her teeth. She is unable to carry a laundry basket. Reported Pain Level Pain Score 3: Self Report Assessment OT Clinical Summary Patient referred to outpatient OT with reduced function of her right, dominant UE following right carpal tunnel release surgery. She presents with residual pain, weakness, and tightness limiting return to functional gripping, lifting, and carrying. Skilled OT indicated to maximize functional ROM and strength of her right UE. Plan of Care Interventions Therapeutic Exercise,Manual Therapy,Therapeutic Activities,Ultrasound,Paraffin OT Services Indicated Yes Treatment Frequency and 2x/week for 5 weeks Duration These treatments will address the objective and functional deficits as defined above. The patient will be advanced safely and appropriately in order for the patient to progress towards his/her prior level of function. Additional exercises will be introduced and as well as a comprehensive home exercise program upon discharge, if needed, ?to ensure carryover of functional gains achieved in the clinic. This treatment plan has been reviewed and agreement upon by the patient.
--- NOTE | 2023-02-08 09:24 | OPREHPOC ---
Outpatient Therapy Plan of Care This is a Multidisciplinary Plan of Care that may contain components documented by all disciplines (PT, OT, and ST.) OT Problem 1 OT Problem #1 Knowledge Deficit OT Goal 1 Goal 1. Patient to be independent with instructed materials. Target Visit 10 OT Problem 2 OT Problem #2 Pain OT Goal 1 Goal 1. Patient to report reduced pain in the right hand, reporting 4/10 or less at worst . OT Problem 3 OT Problem #3 Impaired Range of Motion OT Goal 1 Goal 1. Increase right wrist ROM: flexion to 60 and extension to 55 degrees. 2. Increase right finger ROM: to be able to make a fist, touching all finger tips to the palm. 3. Increase right thumb ROM: be able to touch the base of digit V. OT Problem 4 OT Problem #4 Impaired Strength OT Goal 1 Goal 1. Patient to be able to increase functional strength of the right hand as demonstrated by being able to complete bolt sorter and pinch strengthening with red theraputty. Target Visit 10
--- NOTE | 2023-02-16 15:49 | PCOTNOTE ---
Patient called & cancelled scheduled appointment this date due.
--- NOTE | 2023-02-18 14:43 | PCOTNOTE ---
Patient did not show up for scheduled appointment this date. Called patient who thought her appointment was at 3:15.
--- NOTE | 2023-03-15 09:10 | OTOPPROG ---
Assessment and note entered by Cristiano Cunningham, OTR/Madi, CHT Progress Update 03/15/23 Diagnosis (R) carpal tunnel syndrome Subjective Information Patient is s/p right carpal tunnel release on . She had some post op complications and pain, which restricted her hand use to the point where she was not able to use it at all. She has been participating in therapy since . She reports good functional progress, improved ROM and strength. Reporting she is now able to use the right hand to brush her teeth and lift a half gallon of milk. She reports she has pain with hand use, but reports she is able to use her hand for more and more tasks. Reports a constant pain, 2/10. Limitations include any heavy lifting, like a full laundry basket or a full gallon of milk. ROM has improved to functional limits. She is now able to make a fist, which improved from 3-8 cm gap at the start of care. Wrist ROM returned to normal limits. We were able to measure motor electrician strength today. Unable to do so at the start of care due to pain. (R) motor electrician measuring 20 lbs. (L) motor electrician measuring 64 lbs. Pinch strengths are measuring 2-3 lbs. on the right. Assessment OT Clinical Summary Patient referred to outpatient OT with reduced function of her right, dominant UE following right carpal tunnel release surgery. She is making excellent progress. ROM of the fingers is improving toward normal limits. She is responding well to use of thermal modalities, manual therapy, and HEP progression. She continues to have residual weakness and pain for which she will greatly benefit from continued skilled OT for use of modalities, therapeutic exercise, manual therapy, and HEP progression to facilitate optimal functional use of the right hand/UE. Plan of Care Interventions Therapeutic Exercise,Manual Therapy,Therapeutic Activities,Ultrasound,Paraffin OT Services Indicated Yes Treatment Frequency and 2x/week for 4 weeks Duration These treatments will address the objective and functional deficits as defined above. The patient will be advanced safely and appropriately in order for the patient to progress towards his/her prior level of function. Additional exercises will be introduced and as well as a comprehensive home exercise program upon discharge, if needed, ?to ensure carryover of functional gains achieved in the clinic. This treatment plan has
--- NOTE | 2023-03-15 09:11 | OPREHPOC ---
Outpatient Therapy Plan of Care This is a Multidisciplinary Plan of Care that may contain components documented by all disciplines (PT, OT, and ST.) OT Problem 1 OT Problem #1 Knowledge Deficit OT Goal 1 Goal 1. Patient to be independent with instructed materials. ---OT POC UPDATE 03/15/23-- 1. Met, continue Target Visit 16 OT Problem 2 OT Problem #2 Pain OT Goal 1 Goal 1. Patient to report reduced pain in the right hand, reporting 4/10 or less at worst . ---OT POC UPDATE 03/15/23-- 1. Progressing, continue Target Visit 16 OT Problem 3 OT Problem #3 Impaired Range of Motion OT Goal 1 Goal 1. Increase right wrist ROM: flexion to 60 and extension to 55 degrees. 2. Increase right finger ROM: to be able to make a fist, touching all finger tips to the palm. 3. Increase right thumb ROM: be able to touch the base of digit V. ---OT POC UPDATE 03/15/23-- 1. Met 2. Met, Progress to being able to touch the finger tips to the DPC. 3. Progressing, continue Target Visit 16 OT Problem 4 OT Problem #4 Impaired Strength OT Goal 1 Goal 1. Patient to be able to increase functional strength of the right hand as demonstrated by being able to complete composition floor layer and pinch strengthening with red theraputty. ---OT POC UPDATE 03/15/23-- 1. Met; Upgrade goal: Increase right composition floor layer strength 30 lbs. Target Visit 16
--- NOTE | 2023-04-12 11:45 | OTOPDC ---
Assessment and note entered by Cristiano Cunningham, OTR/Madi, CHT Discharge Summary 04/12/23 Diagnosis (R) carpal tunnel syndrome Subjective Information Patient is s/p right carpal tunnel release on . She had some post op complications and pain, which restricted her hand use to the point where she was not able to use it at all. She has been participating in therapy since . She reports good functional progress, improved ROM and strength. Reporting she is now able to use the right hand for heavier lifting - big bag of dog food, billy litter, etc. She reports she is using her hand for more and more tasks. States she is back to cooking and laundry. Reports she has 10/10 pain after carrying the laundry basket up/down the steps. ROM has improved to functional limits. [place] monofilament testing is now testing in the normal threshold. She is now able to make a fist, which improved from 3-8 cm gap at the start of care. Wrist ROM returned to normal limits. (R) manager requirements improved from 20 lbs. to 32 lbs. Pinch strengths are improving: lateral 5 lbs, palmar 4. 67 lbs, and tip 3 lbs. Reported Pain Level Pain Score 3/10 at rest Assessment OT Clinical Summary Patient referred to outpatient OT with reduced function of her right, dominant UE following right carpal tunnel release surgery. She has made excellent progress with therapy, which has facilitated return to more normal hand use. Her ROM is now WNL. Strength has progressed to functional limits. Sensation has returned to normal limits. She unfortunately continues to have residual pain with use. Patient to continue with her HEP and non-medication pain management strategies. Discharging today with patient independent with all materials. Plan of Care OT Services Indicated No
== END 2023-04-12 15:01 | disposition home or self-care (01) ==
LOC: ANHOT 09:30
PROVIDERS: PCP Physician Assistant; Visit Provider Physician Assistant
DX: G56.01 Carpal tunnel syndrome, right upper limb (principal)
CPT/HCPCS: 97018; 97035; 97110; 97140; 99199

== ENCOUNTER 2023-08-27 14:45 | Outpatient (RCR) | payer OTHER, SELFPAY ==
--- NOTE | 2023-07-08 10:50 | OPREHPOC ---
Outpatient Therapy Plan of Care This is a Multidisciplinary Plan of Care that may contain components documented by all disciplines (PT, OT, and ST.) PT Problem 1 PT Problem #1 Knowledge Deficit PT Goal 1 Goal 1. Patient will perform independent HEP 2. Patient will verbalize urge suppression strategies Target Visit 3 PT Problem 2 PT Problem #2 Pain PT Goal 1 Goal 1. Patient will report daily pelvic pain no higher than 3/10 Target Visit 6 PT Problem 3 PT Problem #3 Impaired Functional ADLs PT Goal 1 Goal 1. Patient will report urinary incontinence no more than 2 times a week 2. Patient will not have to change clothes due to incontinence in at least 2 weeks 3. Patient will be able to hold urge to void at least 20 minutes to allow for activities at home and in the community Target Visit 6
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
--- NOTE | 2023-07-26 15:19 | OPREHPOC ---
Outpatient Therapy Plan of Care This is a Multidisciplinary Plan of Care that may contain components documented by all disciplines (PT, OT, and ST.) PT Problem 1 PT Problem #1 Knowledge Deficit PT Goal 1 Goal 1. Patient will perform independent HEP 2. Patient will verbalize urge suppression strategies Target Visit 3 Progress Partially Met Comment 1. met 2. not met PT Problem 2 PT Problem #2 Pain PT Goal 1 Goal 1. Patient will report daily pelvic pain no higher than 3/10 Target Visit 6 Progress Partially Met Comment pain highest 5/10 PT Problem 3 PT Problem #3 Impaired Functional ADLs PT Goal 1 Goal 1. Patient will report urinary incontinence no more than 2 times a week 2. Patient will not have to change clothes due to incontinence in at least 2 weeks 3. Patient will be able to hold urge to void at least 20 minutes to allow for activities at home and in the community Target Visit 6 Progress Partially Met
--- NOTE | 2023-07-26 15:21 | PTOPPROG ---
Assessment and note entered by Chantel Bolden DPT Evaluation Information Assessment Status Progress Subjective Information Pt reports she is feeling improvements in therapy, not getting urinary incontinence as often. Can had urinary incontinence 2-3 times over the last week, small volume when it happens. Pelvic pain in the last week 10/07 and lowest 07/10. Assessment PT Clinical Summary The patient has made progress in therapy and reports decreased frequency of incontinence and mild decreases to pelvic pain. She demonstrates improved core strength, improved hip strength, and improved pelvic floor strength from 07/05 to 08/02. She will continue to benefit from further therapy to address his incontinence, pain, and return to full function. Plan of Care Interventions Electrical Stimulation,Hot Pack/Cold Pack,Manual Therapy,Neuro Re-education,Patient/Caregiver Education,Therapeutic Activities,Therapeutic Exercise PT Services Indicated Yes Treatment Frequency and 1 time a week for 3-4 visits Duration These treatments will address the objective and functional deficits as defined above. The patient will be advanced safely and appropriately in order for the patient to progress towards his/her prior level of function. Additional exercises will be introduced and as well as a comprehensive home exercise program upon discharge, if needed, ?to ensure carryover of functional gains achieved in the clinic. This treatment plan has been reviewed and agreement upon by the patient.
--- NOTE | 2023-08-09 12:34 | PCPTNOTE ---
Patient arrived to appointment but stated she was having a lot of pain and her MD recommended she go to urgent care. PT also recommended patient cancel therapy appointment and follow MD recommendation.
--- NOTE | 2023-08-27 15:27 | OPREHPOC ---
Outpatient Therapy Plan of Care This is a Multidisciplinary Plan of Care that may contain components documented by all disciplines (PT, OT, and ST.) PT Problem 1 PT Problem #1 Knowledge Deficit PT Goal 1 Goal 1. Patient will perform independent HEP 2. Patient will verbalize urge suppression strategies Target Visit 3 Progress Met PT Problem 2 PT Problem #2 Pain PT Goal 1 Goal 1. Patient will report daily pelvic pain no higher than 3/10 Target Visit 6 Progress Partially Met Comment pain highest 5/10 PT Problem 3 PT Problem #3 Impaired Functional ADLs PT Goal 1 Goal 1. Patient will report urinary incontinence no more than 2 times a week 2. Patient will not have to change clothes due to incontinence in at least 2 weeks 3. Patient will be able to hold urge to void at least 20 minutes to allow for activities at home and in the community Target Visit 6 Progress Partially Met
--- NOTE | 2023-08-27 15:28 | PTOPDC ---
Assessment and note entered by Chantel Bolden DPT Evaluation Information Assessment Status Discharge Subjective Information Pt reports therapy is going well. In the last week has had urinary incontinence 3 times, enough volume to change her underwear. Does feel like she can start to stop it when she does leak. Has been trying to use mental distraction for urge. Highest pain 5/10 and lowest 3/10. Does continue to report pain in one spot that seems to be a boil as well and continues to have unexplained spotting. Reported Pain Level Pain Score 2: Self Report Assessment PT Clinical Summary The patient has made some continued progress in therapy and demonstrates improved pelvic floor endurance and no pain with palpation of pelvic floor this visit. She continues to report pelvic pain at all times and incontinence 3 times a week but has been able to start using urge suppression techniques. Due to patient's continued incontinence as well as reports of spotting and pain from a boil plan to hold therapy at this time to allow her to follow up with MD. May resume therapy if needed in the future. Plan of Care PT Services Indicated No
== END 2023-08-30 12:55 | disposition home or self-care (01) ==
LOC: ANHGOSHPT 14:45
PROVIDERS: PCP Physician Assistant; Visit Provider Nurse Practitioner
DX: N39.46 Mixed incontinence (principal)
CPT/HCPCS: 97110; 97112; 97140; 97162; 97530

== ENCOUNTER 2024-01-21 08:00 | Outpatient (RCR) | payer OTHER, SELFPAY ==
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
--- NOTE | 2023-11-03 17:37 | OPREHPOC ---
Outpatient Therapy Plan of Care This is a Multidisciplinary Plan of Care that may contain components documented by all disciplines (PT, OT, and ST.) PT Problem 1 PT Problem #1 Knowledge Deficit PT Goal 1 Goal Pt will demo core strengthening, Extension Bias exercises for the spine, lumbar stabilization exercises HEPs indep Target Visit 10 PT Problem 2 PT Problem #2 Pain PT Goal 1 Goal Pt will demo 1-2/10 pain to lowback and buttocks with sitting >30 min Target Visit 10 PT Problem 3 PT Problem #3 Impaired Range of Motion PT Goal 1 Goal Pt will demo normal ROM for thoracolumbar area, BLE PT Problem 4 PT Problem #4 Impaired Strength PT Goal 1 Goal Pt will perform SLR, hip extensions and standing on one leg x 20 reps without pain and discomfort Target Visit 10
--- NOTE | 2023-11-15 10:10 | PCPTNOTE ---
pt was a no show today, left a message regarding visits and rescheduling
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
--- NOTE | 2024-01-14 16:17 | PCPTNOTE ---
pt did not show for today's appt, called and left voice message with reminder for next appt.
--- NOTE | 2024-01-21 08:59 | PTOPDC ---
Assessment and note entered by Kajal Foy, PT Discharge Report Assessment Status Discharge Diagnosis LBP Onset Low Back Pain Subjective Information am going to have to get another xray of back, not yet scheduled; have to call and get another appt with provider for follow up; the exercises at home, make pain worse, feel kind of good when doing them, but hurt more after doing them; Reported Pain Level Pain Score Self Report Additional Pain Score Comments pain range in the past week: 3-7/10; pain all the time, constant pain in back- center of lumbar spine increase pain: sitting 10 min; stand/walk 30 min; stairs; heat decrease pain: change positions; ice; over the counter meds PRN; sleeping is OK- on a new med and sleeping 10-12 hours without pain in back awakening Assessment PT Clinical Summary Sterling has received 10 PT sessions, from November 02 to . And did not show for 2 appointments. Compared to the initial evaluation: pain from 4-9/ 10 to 3-7/10; self assessment with [place] rating from 64% to % limitation in activity level; reports decreased sit, stand and ability on stairs due to pain; meds help her sleep; supine R and L hip, knee and ankle motions do not increase pain during assessment, pain is increased with standing trunk flexion and extension motions, prone on elbows stretch; tightness of both hamstrings with supine SLR to 40' and anterior hip/ quad with prone knee flexion stretch 120'; education for HEP and posture/body mechanics and pain control. Sterling reports is not able to perform the HEP due to pain increase with them. With the electrical stim, reports some pain relief. The goals were partially met. Discharge PT. She is to continue with the exercises at home and activity as tolerated. And is to contact her provider for a follow up appointment. Plan of Care PT Services Indicated No
== END 2024-01-21 12:15 | disposition home or self-care (01) ==
LOC: ANHPT 08:00
PROVIDERS: PCP Physician Assistant; Visit Provider Physician Assistant
DX: M54.50 Low back pain, unspecified (principal)
CPT/HCPCS: 97014; 97110; 97140; 97161; 97530; 97750; G0283

== ENCOUNTER 2024-08-15 11:34 | Emergency (ER) | payer BC, SELFPAY ==
[2024-08-15 11:43] VITALS: BP 135/87; PULSE 80; RESP 16; TEMP 36.7; O2SAT 100
--- NOTE | 2024-08-15 11:51 | ED.ABDPAIN ---
HPI - Abdominal Pain General Chief Complaint: Skin/Abscess/Foreign Body Stated Complaint: abdominal pain, rash around belly button Time Seen by Provider: 08/15/24 11:51 Source: patient and RN notes reviewed Mode of arrival: ambulatory Limitations: no limitations History of Present Illness HPI narrative: 44 year old female presents concern for 3 day history of abdominal pain. She reports bloody loose stools, vomiting. She also reports a red painful raised area around her umbilicus that is been there for several days. She reports decreased appetite, sweats, chills, fever. She has a history of chronic diarrhea after cholecystectomy MD elicited complaint: abdominal pain Related Data Home Medications ?Medication ?Instructions ?Recorded ?Confirmed ?Last Taken ?Type atorvastatin 40 mg tablet mg 08/15/24 Unknown History pantoprazole 20 mg tablet,delayed mg PO 08/15/24 Unknown History release prazosin 2 mg capsule mg 08/15/24 Unknown History risperidone 0.5 mg tablet mg 08/15/24 Unknown History Allergies Allergy/AdvReac Type Severity Reaction Status Date / Time No Known Allergies Allergy Verified 08/15/24 11:41 Review of Systems Review of Systems: CONSTITUTIONAL: Reports malaise, chills, sweats CARDIOVASCULAR: Denies chest pain, palpitations, or edema. RESPIRATORY: Denies cough or dyspnea. GASTROINTESTINAL: Reports generalized abdominal pain, nausea, vomiting, diarrhea, bloody GENITOURINARY: Denies dysuria or hematuria. SKIN: Reports red painful raised area around her umbilicus MUSCULOSKELETAL: Denies myalgia. NEUROLOGIC: Denies headache. All systems reviewed & are unremarkable except as noted in HPI and below PMFSH Past Medical History Medical History Anxiety Anxiety Chronic pain syndrome Depression GERD (gastroesophageal reflux disease) Hx of migraines Stomach ulcer Surgical History Surgical History History of foot surgery left 2020 Hx laparoscopic cholecystectomy Family History Family History Father Heart attack Unknown Diabetes mellitus Mother Suicide Other Diabetes mellitus Hypertension Social History Social History Smoking packs per day: 0.75 Smoking cigarettes per day: 15.0 Years smoked: 22 Smoking pack-years: 16.50 Smoking status: Current every day smoker Tobacco type: cigarettes Alcohol intake: current Drinks per week: 1 Substance use: never Substance use type: does not use Living arrangements: with family Occupation/Education: unemployed Gender identity (if verbalized by the patient): Female Spiritual care concerns: No Comments At time of signature, agree with nursing past medical, surgical, social and family history. There is no relevant family history pertinent to the presenting complaint Exam Narrative: GENERAL: Nontoxic-appearing and in no acute distress. HEAD: Normocephalic, atraumatic. EYES: PERRLA, conjunctivae clear, and EOMI. ENT: Nares clear. Mucous membranes moist. NECK: Supple. No lymphadenopathy CHEST: Speaks in full sentences. No respiratory distress. HEART: Regular rate and rhythm. ABDOMEN: Soft, obese, general tenderness. No guarding or rigidity. Bowel sounds present in all four quadrants. No scars or surface trauma. SKIN: Warm, dry, no rash. Periumbilical erythema, induration, warmth, tenderness approximately 20 cm in diameter NEURO: Alert and oriented x3. PSYCH: Normal mood and affect Course Course Emergency Course: Patient is aware of, understands and agrees to be transferred to the emergency room. Patient agrees to proceed directly to the emergency department. Portions of this record may have been created with voice recognition software Level of Care: Express Care Visit Vital Signs Vital signs: Vital Signs Temperature 98.1 F 08/15/24 11:43 Pulse Rate 80 08/15/24 11:43 Respiratory Rate 16 08/15/24 11:43 Blood Pressure 135/87 08/15/24 11:43 Pulse Oximetry 100 08/15/24 11:43 Oxygen Delivery Room Air 08/15/24 11:43 Temperature 98.1 F 08/15/24 11:43 Pulse Rate 80 08/15/24 11:43 Respiratory Rate 16 08/15/24 11:43 Blood Pressure 135/87 08/15/24 11:43 Pulse Oximetry 100 08/15/24 11:43 Oxygen Delivery Room Air 08/15/24 11:43 Reviewed. Transfer Transfered to: [facility] Transportation: Other (private vehicle) Transfer rationale: Abdominal pain Accepting physician: Niraj Dhaliwal comments: Patient's partner is comfortable driving patient to the emergency room MDM - Abdominal Pain MDM Narrative Medical decision making narrative: Patient is nontoxic appearing and in no acute distress Critical Care Time Critical Care Time Critical Care Time: No Discharge Plan Discharge Clinical Impression: Abdominal pain Patient Disposition: Acute Care Hospital Condition: Stable Patient Language: Macedonian Prescriptions: No Action hydrocodone-acetaminophen 5-325 mg tablet 1 tablet PO Q6H PRN (Reason: pain) Qty: 5 0RF atorvastatin 40 mg tablet pantoprazole 20 mg tablet,delayed release (DR/EC) PO risperidone 0.5 mg tablet prazosin 2 mg capsule Follow-up/Referrals: Cammie,FLORI Escalona [Primary Care Provider] - Time of Disposition: 12:08
== END 2024-08-15 12:02 | disposition short-term general hospital (02) ==
PROVIDERS: Emergency Provider Nurse Practitioner; PCP Physician Assistant
DX: R10.9 Unspecified abdominal pain (principal); F17.210 Nicotine dependence, cigarettes, uncomplicated; K21.9 Gastro-esophageal reflux disease without esophagitis
CPT/HCPCS: 99212; G0463

== ENCOUNTER 2024-08-15 12:23 | Emergency (ER) | payer BC, SELFPAY ==
--- NOTE | ~2024-08-15 | CT_ITS ---
CT abdomen pelvis w con Ordering provider: Doc Healy MD History: 44 years Female with . abd pain/ bleeding . Comparison: March 08, 2021 Technique: CT abdomen and pelvis with IV and without oral contrast. Automated exposure control and it erative reconstruction technique were employed. The dose-length product was 985.54 mGy-cm. 100 mL Omn ipaque 350 was given IV. Findings: VISUALIZED LOWER CHEST: Normal. UPPER ABDOMINAL ORGANS: Liver: Hepatomegaly. Gallbladder: Status post cholecystectomy. Spleen: Normal. Stomach/duodenum: Normal. Pancreas: Normal. Adrenals: Normal. Kidneys: Normal. PELVIC ORGANS: The bladder is underfilled. BOWEL AND MESENTERY: Colon: No evidence of diverticulitis. Slight thickening of the wall of the sigmoid colon is seen. Kai e enhancement of the mucosa of the colon in the right side is noted with some enhancement of the muco sa of the terminal ileum. No thickening seen in the terminal ileum. Evaluation for inflammatory bowel disease should be considered. No evidence of appendicitis. Small Bowel: No obstruction. Peritoneum/mesentery: No free air or free fluid. No mesenteric lymphadenopathy. RETROPERITONEUM: Mild atheromatous disease of the abdominal aorta. No retroperitoneal lymphadenopat hy. MUSCULOSKELETAL: Superficial soft tissues: The superficial soft tissues are normal. Bones: Age appropriate degenerative changes of the spine. Sclerotic lesion seen in the left femoral n macario is likely benign. Follow-up advised. 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 IMPRESSION: 1. No evidence of appendicitis, diverticulitis or intestinal obstruction. 2. Enhancement of the mucosa of the large bowel in the right side with enhancement of the mucosa in the terminal ileum no thickening seen in the large bowel except for minimal thickening in the sigmoid colon. Inflammatory bowel disease cannot be excluded. Clinical correlation advised. 3. Hepatomegaly Reviewed, dictated and finalized at location A. IMPRESSION: 1. No evidence of appendicitis, diverticulitis or intestinal obstruction. 2. Enhancement of the mucosa of the large bowel in the right side with enhance ment of the mucosa in the terminal ileum no thickening seen in the large bowel except for minimal thickening in the sigmoid colon. Inflammatory bowel disease cannot be excluded. Clinical correlation advised. 3. Hepatomegaly
[2024-08-15 12:25] VITALS: BP 134/90; PULSE 88; RESP 15; TEMP 36.4; O2SAT 98
[2024-08-15 13:01] LABS: BEDSIDEPREGUCG Negative (Negative)
[2024-08-15 13:09] LABS: Estimated CRCL calculation 69 ml/min; Estimated Glomerular Filt Rate > 60
[2024-08-15 13:17] LABS: Basophils Percent Auto 0.3 % (0.2-1.2); Eosinophils Absolute Auto 0.2 K/mm3 (0-0.3); Eosinophils Percent Auto 1.5 % (0-4.4); Hematocrit 41.3 % (37.0-47.0); Hemoglobin 14.1 g/dL (12.0-15.0); Immature Granulocyte Absolute 0.12 K/mm3 (0.00-0.031); Immature Granulocyte Percent A 1.2 % (0-0.5); Lymphocytes Percent Auto 28.2 % (18.3-44.2); Mean Corpuscular HGB Conc 34.1 g/dl (32-36); Mean Corpuscular Hemoglobin 34.9 pg (26-34); Mean Corpuscular Volume 102.2 fl (80-100); Mean Platelet Volume 8.7 fl (7.4-10.4); Monocytes Absolute Auto 0.6 K/mm3 (0.1-0.6); Monocytes Percent Auto 5.6 % (2.6-8.5); Neutrophils Absolute Auto 6.3 K/mm3 (1.3-6.7); Neutrophils Percent Auto 63.2 % (45.5-73.1); Platelet Count Result 240 k/mm3 (150-375); Red Blood Count 4.04 M/mm3 (4.2-5.4); Red Cell Distribution Width 13.6 % (11.5-14.5); White Blood Count 9.9 K/mm3 (4.5-10.0)
[2024-08-15 13:24] LABS: Add Urine Microscopic? NO; Appearance Urine Clear (Clear); Bacteria Urine None Seen /hpf; Bilirubin Urine Negative (Negative); Blood Urine Non-Hemolyzed Trace (Negative); Color Urine Yellow (Yellow); Glucose Urine UA Negative (Negative); Ketones Urine Negative (Negative); Leukocyte Esterase Ur Negative LEU/UL (Negative); Nitrate Urine Negative (Negative); Non Pathogenic Casts 0-2; Protein Urine Negative (Negative); Specific Grav Ur 1.023 (1.001-1.035); Squamous Epithelial Cell Urine Occasional /hpf (Few); Urobilinogen Urine 0.2 mg/dL (<2.0); WBC Urine 0-5 /hpf (0-3)
[2024-08-15 13:31] LABS: Alanine Aminotransferase 35 U/L (6-35); Albumin Level 4.3 g/dL (3.5-5.1); Alkaline Phosphatase 95 U/L (38-126); Anion Gap 9 mmol/L (4-12); Aspartate Amino Transferase 29 U/L (14-36); Bilirubin,Total 0.7 mg/dL (0.2-1.3); Blood Urea Nitrogen 17 mg/dL (7-17); Calcium 8.8 mg/dL (8.4-10.2); Carbon Dioxide 23 mmol/L (22-30); Chloride 107 mmol/L (98-107); Estimated CRCL calculation 73 ml/min; Estimated Glomerular Filt Rate > 60; Glucose 103 mg/dL (65-110); Potassium 4.2 mmol/L (3.4-5.0); Sodium 139 mmol/L (137-145)
[2024-08-15 13:39] LABS: Partial Thromboplastin Time 23.8 Seconds (22.3-36.8)
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
--- OUTSIDE RECORDS SUMMARY | 2024-08-15 13:43 | XMS_ITS | Referral Summary ---
Author Organization [facility] Address [address] [place] [address] Care Team Providers Care Home Theater Experience Expert Name Role Phone Iqra Bonds Primary Care Provider [phone] Allergies No known active allergies Medications aspirin 81 mg enteric coated tablet Take 1 tablet (81 mg total) by mouth every morning 3 Active atorvastatin (LIPITOR) 40 mg tablet Take 1 tablet (40 mg total) by mouth nightly at bedtime 3 Active bisacodyl EC (DULCOLAX EC) 5 mg EC tablet Take 2 tablets (10 mg total) by mouth daily as needed 3 Active hydrOXYzine (ATARAX) 25 mg tablet Take 1 tablet (25 mg total) by mouth 3 (three) times a day as needed 3 Active loperamide (IMODIUM) 2 mg capsule 3 Active medroxyPROGESTER one 150 mg/mL injection ADMINISTER 1 ML IN THE MUSCLE EVERY 3 MONTHS 3 Active nicotine (NICODERM CQ) 14 mg APPLY 1 PATCH ONCE DAILY 3 Active nitrofurantoin monohydrate (MACROBID) 100 mg capsule 3 Active omeprazole (PriLOSEC) 20 mg capsule Take 1 capsule (20 mg total) by mouth every morning 3 Active polyethylene glycol (MIRALAX) 17 gram/dose powder 3 Active cholecalciferol (VITAMIN D-3) 2000 unit capsule Take 1 capsule (2,000 Units total) by mouth daily Takes four tablets daily Active ascorbic acid (vitamin C) 1,000 mg tablet Take 1 tablet (1,000 mg total) by mouth daily Active acetaminophen-co deine (TYLENOL with CODEINE #3) 300-30 mg per tablet Take 1-2 tablets by mouth every 4 (four) hours as needed for pain 30 tablet 3 Active methylPREDNISolo ne (Medrol, Jose,) 4 mg DosepackIndicati ons:Right carpal tunnel syndrome,Right hand pain Take as directed on package 1 packet 3 Active venlafaxine XR (EFFEXOR-XR) 37.5 mg 24 hr capsule TAKE 1 CAPSULE BY MOUTH EVERY DAY DIRECTED 3 Active risperiDONE (RisperDAL) 0.5 mg tablet Take 1 tablet (0.5 mg total) by mouth every evening [address] (PROTONIX) 20 mg EC tablet Take 1 tablet (20 mg total) by mouth every morning 3 Active Active Problems Problem Noted Date Diagnosed Date Left facial numbness 05/27/2023 Nonspecific paroxysmal spell 05/27/2023 Right hand pain 11/25/2022 Right carpal tunnel syndrome 11/25/2022 Social History Tobacco Use Types Packs/Day Years Used Date Smoking Tobacco: Every Day Cigarettes 0.5 30 Passive Smoke Exposure: Never Smokeless Tobacco: Current Tobacco Cessation:Ready to Q uit: Not Asked; Counseling Given: Not Answered AUDIT-C Answer Date Recorded Q1: How often do you have a drink containing alc ohol? Never 11/25/2022 Average Number of Drinks Not on file 023 Frequency of Binge Drinking Not on file 10/30 Personal Safety Answer Date Recorded Have you ever been in or are you currently in a harmful physical or emotional relationship or is someone making you feel afraid or unsafe? Denies 12/16/2022 Comments No Sex and Gender Information Value Date Recorded Sex Assigned at Not on file Legal Sex Female 2:23 AM EVENT PROMOTIONS COORDINATOR Gender Identity Not on file Sexual Orientation Not on file Last Filed Vital Signs Vital Sign Reading Time Taken Comments Blood Pressure 122/78 04/26/2023 3:05 PM EVENT PROMOTIONS COORDINATOR Pulse 84 04/26/2023 3:05 PM EVENT PROMOTIONS COORDINATOR Temperature 36.9 C (98.5 F) 12/16/2022 8:50 PM CDT Respiratory Rate 16 12/16/2022 8:50 PM CDT Oxygen Saturation 98% 04/26/2023 3:05 PM EVENT PROMOTIONS COORDINATOR Inhaled Oxygen Concentration - - Weight 79.9 kg (176 lb 2.4 oz) 04/26/2023 3:05 P M EVENT PROMOTIONS COORDINATOR Height 160 cm (5' 3 ) 12/16/2022 5:22 PM CDT Body Mass Index 31.2 12/16/2022 5:22 PM CDT Plan of Treatment Not on file Medical Devices Implanted Type Area Spool Sorter Device Identifier Shelf Expiration Date Model / Serial / Lot Plate Plate Left: Ankle Insurance Care Teams Home Theater Experience Expert Relationship Specialty Start Date End Date Iqra Bonds PA [address] [place] [address] PCP - General Physician Structural Steel Detailer 10/09/22
--- OUTSIDE RECORDS SUMMARY | 2024-08-15 13:44 | XMS_ITS | Clinical Summary ---
Author Organization [facility] Address [address] [place] [address] Care Team Providers Care Manufacturing Test Engineer Name Role Phone Iqra Bonds Primary Care Provider [phone] Allergies No known active allergies Medications aspirin [...] pain 11/25/2022 Right carpal tunnel syndrome 11/25/2022 Surgical History Surgery Date Site/Laterality Comments LEG SURGERY 05/31/2019 - 05/30/2020 Left fracture to tibia and fibula with hardware plate and 6 screws. CHOLECYSTECTOMY 05/31/2020 - 05/30/2021 UPPER GASTROINTESTINAL ENDOSCOPY 10/29/2022 COLONOSCOPY 11/12/2022 Medical History Medical History Date Comments High cholesterol GERD (gastroesophageal reflux disease) Gastritis ADHD (attention deficit hyperactivity disorder) Ovarian cyst 2021 right sided cyst . DDD (degenerative disc disease), lumbar Social History Tobacco Use Types Packs/Day Years [...] on file Legal Sex Female 2:23 AM RAM CAR OPERATOR Gender Identity Not on file Sexual Orientation Not on file Obstetrics History Last Filed Vital Signs Vital Sign Reading Time Taken Comments Blood Pressure 122/78 04/26/2023 3:05 PM RAM CAR OPERATOR Pulse 84 04/26/2023 3:05 PM RAM CAR OPERATOR Temperature 36.9 C (98.5 F) 12/16/2022 8:50 PM CDT Respiratory Rate 16 12/16/2022 8:50 PM CDT Oxygen Saturation 98% 04/26/2023 3:05 PM RAM CAR OPERATOR Inhaled Oxygen Concentration - - Weight 79.9 kg (176 lb 2.4 oz) 04/26/2023 3:05 P M RAM CAR OPERATOR Height 160 cm (5' 3 ) 12/16/2022 5:22 PM CDT Body Mass Index 31.2 12/16/2022 5:22 PM CDT Plan of Treatment Health Maintenance Due Date Last Done Comments Breast Cancer Screening-Mammogram 1981 Cervical Cancer Screening 1981 Depression Screening 1981 Hepatitis C Screening 1981 DTaP/Tdap/Td Vaccine (1 - Tdap) 1992 Varicella Vaccines (1 of 2 - 13+ 2-dose series) 1994 Hepatitis B Screening 1999 Regular Well Visit/Exam 18-64 1999 Pneumococcal vaccine <65 (1 of 2 - PCV) 2000 Covid-19 Vaccine ( season) 2024 07/10/2021, 2021, 12/06/2020, Additional history exists Influenza Vaccine (#1) 2024 HPV Vaccines Aged Out No longer eligi ble based on patient's age to complete this topic Medical Devices Implanted Type Area Windows Migration Technician Device Identifier Shelf Expiration Date Model / Serial / Lot Plate Plate Left: Ankle Insurance [facility] Care Teams Manufacturing Test Engineer Relationship Specialty Start Date End Date Iqra Bonds PA [address] [place], [place] [address] [place] [address] PCP - General Physician Supervisor Rod Placing 10/09/22
--- OUTSIDE RECORDS SUMMARY | 2024-08-15 13:44 | XMS_ITS | Clinical Summary ---
Author Organization [facility] Address [address] [place] [address] Care Team Providers Care Property Management Specialist Name Role Phone Unavailable Primary Care Provider Unavailabl e Social History Tobacco Use Types Packs/Day Years Used Date Smoking Tobacco: Never Assessed Comments Unknown Sex and Gender Information Value Date Recorded Sex Assigned at Not on file Legal Sex Female 8:28 PM CDT Gender Identity Not on file Sexual Orientation Not on file Plan of Treatment Health Maintenance Due Date Last Done Comments Cervical Cancer Screening Pa p Smear (Age 30 to 64) Every 3 Years 1981 Annual Physical 1984 Hepatitis C 1999 DTaP, Tdap and Td Vaccines ( 1 - Tdap) 2000 Hepatitis B Vaccines (1 of 3 - 19+ 3-dose series) 2000 Cervical Cancer Screening Pa p with HPV Testing (Age 30 to 64) Every 5 Years 2011 Cervical Cancer Screening with HPV 2011 Mammogram Screening 2021 COVID-19 Vaccine ( - 2023-2 5 season) 2024 Influenza Adult (#1) 2024 HPV Vaccines Aged Out No longer eligi ble based on patient's age to complete this topic Meningococcal B Vaccine Aged Out No l onger eligible based on patient's age to complete this topic Meningococcal Vaccine Aged Out No timothy amaya eligible based on patient's age to complete this topic Pneumococcal Vaccine: Pediat rics (0 to 5 Years) and At-Risk Patients (6 to 64 Years) Aged Out No longer eligible b ased on patient's age to complete this topic RSV Immunizations Under 20 Months Aged Out No longer eligible based on patient's age to complete this topic
--- NOTE | 2024-08-15 13:55 | ED_ITS ---
HPI - General Adult General Chief complaint: GI Bleed Stated complaint: bloody stool, n&v, abd pain Time Seen by Provider: 08/15/24 12:51 History of Present Illness HPI narrative: 44-year-old female presented emergency department for evaluation for frequent diarrhea, worsening hemorrhoids. And concern for umbilical cellulitis. Patient states she has had longstanding diarrhea. Patient previously followed up with GI and had been on an unknown medication to help prevent the diarrhea, patient denies that it was Imodium. Patient states she has been having persistent diarrhea for the last few months and does have follow-up scheduled with GI in [place]. Patient reports because she has been having such frequent bowel movements she has has worsening hemorrhoids. Patient also has complaints pain at her umbilicus with worsening erythema. Related Data Home Medications ?Medication ?Instructions ?Recorded ?Confirmed ?Last Taken ?Type atorvastatin 40 mg tablet mg 08/15/24 Unknown History pantoprazole 20 mg tablet,delayed mg PO 08/15/24 Unknown History release prazosin 2 mg capsule mg 08/15/24 Unknown History risperidone 0.5 mg tablet mg 08/15/24 Unknown History Allergies Allergy/AdvReac Type Severity Reaction Status Date / Time No Known Allergies Allergy Verified 08/15/24 12:27 Review of Systems 2 Review of Systems: All systems reviewed & are unremarkable except as noted in HPI and below PMFSH Past Medical History Medical History Anxiety Anxiety Chronic pain syndrome Depression GERD (gastroesophageal reflux disease) Hx of migraines Stomach ulcer Surgical History Surgical History History of foot surgery left 2020 Hx laparoscopic cholecystectomy Family History Family History Father Heart attack Unknown Diabetes mellitus Mother Suicide Other Diabetes mellitus Hypertension Social History Social History Smoking packs per day: 0.75 Smoking cigarettes per day: 15.0 Years smoked: 22 Smoking pack-years: 16.50 Smoking status: Current every day smoker Tobacco type: cigarettes Alcohol intake: current Drinks per week: 1 Substance use: never Substance use type: does not use Living arrangements: with family Occupation/Education: unemployed Gender identity (if verbalized by the patient): Female Spiritual care concerns: No Exam 2 Narrative: APPEARANCE: Well appearing, no pain, no distress, well-nourished. HEAD: normocephalic, atraumatic. EYES: PERRLA/EOMI, conjunctivae clear. NOSE: Normal no drainage EARS:TMS clear with good light reflex. THROAT: Pharynx clear, no exudate. NECK: Supple. No adenopathy, no masses. RESPIRATORY: Airway patent, respirations nonlabored. Clear to auscultation bilaterally, no rales, rhonchi, wheezing. CARDIOVASCULAR: Regular rate and rhythm without murmurs rubs or gallops. ABDOMINAL: Soft, nontender, nondistended, normal bowel sounds MUSCULOSKELETAL: Moves all extremities. Strength/ROM intact, No edema, No calf tenderness. NEURO: Alert. Cranial nerves II through XII intact. Good gait. Good coordination SKIN: Suspected cellulitis of the umbilicus PSYCHIATRIC: Normal affect/mood. Rectal exam: External hemorrhoids non thrombosed Course Vital Signs Vital signs: Vital Signs Temperature 97.6 F 08/15/24 12:25 Pulse Rate 88 08/15/24 12:25 Respiratory Rate 15 08/15/24 12:25 Blood Pressure 134/90 08/15/24 12:25 Pulse Oximetry 98 08/15/24 12:25 Oxygen Delivery Room Air 08/15/24 12:25 Temperature 97.9 F 08/15/24 14:17 Pulse Rate 78 08/15/24 14:17 Respiratory Rate 18 08/15/24 14:17 Blood Pressure 126/70 08/15/24 14:17 Pulse Oximetry 98 08/15/24 14:17 Oxygen Delivery Room Air 08/15/24 12:25 Medical Decision Making [facility] Narrative Medical decision making narrative: 44-year-old female present to the emergency department for evaluation for increased hemorrhoid pain. Patient is currently afebrile with no leukocytosis hemoglobin 14.1. INR is 1.0. No acute abnormalities on the patient's CMP UA was negative for an infection. CT scan showed no acute intra-abdominal abnormality. Patient's physical exam shows nonthrombosed external hemorrhoids. Patient was advised on switching to a clear liquid diet and voiding extended periods the toilet. Patient was also strongly encouraged to continue follow-up with GI. Patient will be started on Keflex for the periumbilical cellulitis. Patient was also advised to start taking a probiotic. All questions concerns were addressed. Differential Diagnosis Differential Diagnosis: Colitis, diverticulitis, internal hemorrhoids, external hemorrhoids, anal fissure Vital Signs Vital Signs: Vital Signs Temperature 97.6 F 08/15/24 12:25 Pulse Rate 88 08/15/24 12:25 Respiratory Rate 15 08/15/24 12:25 Blood Pressure 134/90 08/15/24 12:25 Pulse Oximetry 98 08/15/24 12:25 Oxygen Delivery Room Air 08/15/24 12:25 Temperature 97.9 F 08/15/24 14:17 Pulse Rate 78 08/15/24 14:17 Respiratory Rate 18 08/15/24 14:17 Blood Pressure 126/70 08/15/24 14:17 Pulse Oximetry 98 08/15/24 14:17 Oxygen Delivery Room Air 08/15/24 12:25 Lab Data Lab results reviewed: Yes I reviewed the patient's lab results. 08/15/24 12:56 08/15/24 13:08 Labs: Lab Results 08/15/24 08/15/24 08/15/24 Range/Units 12:56 12:58 13:08 WBC 9.9 (4.5-10.0) K/mm3 RBC 4.04 L (4.2-5.4) M/mm3 Hgb 14.1 (12.0-15.0) g/dL Hct 41.3 (37.0-47.0) % MCV 102.2 H (80-100) fl MCH 34.9 H (26-34) pg MCHC 34.1 (32-36) g/dl RDW 13.6 (11.5-14.5) % Plt Count 240 (150-375) k/mm3 MPV 8.7 (7.4-10.4) fl Immature Gran % (Auto) 1.2 H (0-0.5) % Neut % (Auto) 63.2 (45.5-73.1) % Lymph % (Auto) 28.2 (18.3-44.2) % [place] % (Auto) 5.6 (2.6-8.5) % Eos % (Auto) 1.5 (0-4.4) % Baso % (Auto) 0.3 (0.2-1.2) % Lymph # (Auto) 2.80 (0.9-3.2) K/mm3 [place] # (Auto) 0.6 (0.1-0.6) K/mm3 Eos # (Auto) 0.2 (0-0.3) K/mm3 Baso # (Auto) 0.0 (0.0-0.1) K/mm3 Abs Immat Gran (auto) 0.12 H (0.00-0.031) K/mm3 Absolute Neuts (auto) 6.3 (1.3-6.7) K/mm3 Absolute Nucleated RBC 0.000 (0.0-0.012) K/mm3 Nucleated RBC % 0.0 (0.0-0.2) % PT 13.0 (11.1-14.7) Seconds INR 1.0 APTT 23.8 (22.3-36.8) Seconds Sodium 139 (137-145) mmol/L Potassium 4.2 (3.4-5.0) mmol/L Chloride 107 (98-107) mmol/L Carbon Dioxide 23 (22-30) mmol/L Anion Gap 9 (4-12) mmol/L BUN 17 (7-17) mg/dL Creatinine 0.94 1.00 (0.7-1.0) mg/dL Estim Creat Clear Calc 73 69 ml/min Estimated GFR > 60 > 60 (59 - ) Glucose 103 (65-110) mg/dL Calcium 8.8 (8.4-10.2) mg/dL Total Bilirubin 0.7 (0.2-1.3) mg/dL AST 29 (14-36) U/L ALT 35 (6-35) U/L Alkaline Phosphatase 95 (38-126) U/L Total Protein 7.0 (6.3-8.2) g/dL Albumin 4.3 (3.5-5.1) g/dL Urine Color Yellow (Yellow) Urine Appearance Clear (Clear) Urine pH 6.0 (5.0-9.0) Ur Specific [place] 1.023 (1.001-1.035) Urine Protein Negative (Negative) mg/dL Urine Glucose (UA) Negative (Negative) mg/dL Urine Ketones Negative (Negative) mg/dL Ur Blood (Man) Non-hemolyzed trace H (Negative) Urine Nitrate Negative (Negative) Urine Bilirubin Negative (Negative) Urine Urobilinogen 0.2 (<2.0) mg/dL Leukocyte Esterase Rfl Negative (Negative) RINKU/UL Urine RBC 6-10 H (0-2) /hpf Urine WBC 0-5 (0-3) /hpf Ur Squamous Epith Cells Occasional (Few) /hpf Urine Bacteria None seen /hpf Urine Casts 0-2 POC Urine HCG, Qual Negative (Negative) Blood Type O Positive Antibody Screen Negative Imaging Data Radiologist's impression: Impressions Abdomen/Pelvis CT 08/15/24 13:16 IMPRESSION: 1. No evidence of appendicitis, diverticulitis or intestinal obstruction. 2. Enhancement of the mucosa of the large bowel in the right side with enhancement of the mucosa in the terminal ileum no thickening seen in the large bowel except for minimal thickening in the sigmoid colon. Inflammatory bowel disease cannot be excluded. Clinical correlation advised. 3. Hepatomegaly Discharge Plan Discharge Clinical Impression: Diarrhea, External hemorrhoids, Cellulitis of periumbilical region Patient Disposition: Home, Self-Care Condition: Stable Instructions: Antibiotic Form, Hemorrhoids (ED), Cellulitis (ED), Clear Liquid Diet (ED) Additional Instructions: Clear liquid diet for the next few days to help with diarrhea. [id number] hemorrhoidal cream for symptoms. Avoid prolonged time the toilet. Start taking a probiotic. Keflex as directed for periumbilical cellulitis. Continue to have close follow-up with GI. Have close follow-up with your primary care physician to ensure proper healing of the cellulitis. If you have any worsening symptoms then please call or return to the emergency department. Patient Language: Malaysian Prescriptions: New cephalexin 500 mg capsule 500 mg PO Q8H 7 Days Qty: 21 0RF No Action hydrocodone-acetaminophen 5-325 mg tablet 1 tablet PO Q6H PRN (Reason: pain) Qty: 5 0RF atorvastatin 40 mg tablet pantoprazole 20 mg tablet,delayed release (DR/EC) PO risperidone 0.5 mg tablet prazosin 2 mg capsule Follow-up/Referrals: Cammie,FLORI Escalona [Primary Care Provider] -
[2024-08-15 14:17] VITALS: BP 126/70; PULSE 78; RESP 18; TEMP 36.6; O2SAT 98
--- OUTSIDE RECORDS SUMMARY | 2024-08-15 14:51 | XMS_ITS | Clinical Summary ---
Author Organization [facility] Address [address] [place] [address] Care Team Providers Care Capacity Planning Analyst Name Role Phone Iqra Bonds Primary Care Provider [phone] Allergies No known active allergies Medications aspirin [...] on file Legal Sex Female 2:23 AM DRILLING MACHINE OPERATOR Gender Identity Not on file Sexual Orientation Not on file Obstetrics History Last Filed Vital Signs Vital Sign Reading Time Taken Comments Blood Pressure 122/78 04/26/2023 3:05 PM DRILLING MACHINE OPERATOR Pulse 84 04/26/2023 3:05 PM DRILLING MACHINE OPERATOR Temperature 36.9 C (98.5 F) 12/16/2022 8:50 PM CDT Respiratory Rate 16 12/16/2022 8:50 PM CDT Oxygen Saturation 98% 04/26/2023 3:05 PM DRILLING MACHINE OPERATOR Inhaled Oxygen Concentration - - Weight 79.9 kg (176 lb 2.4 oz) 04/26/2023 3:05 P M DRILLING MACHINE OPERATOR Height 160 cm (5' 3 ) [...] this topic Medical Devices Implanted Type Area Food Preparer Device Identifier Shelf Expiration Date Model / Serial / Lot Plate Plate Left: Ankle Insurance [facility] Care Teams Capacity Planning Analyst Relationship Specialty Start Date End Date Iqra Bonds PA [address] [place], [place] [address] [place] [address] PCP - General Physician Dance Coach 10/09/22
--- OUTSIDE RECORDS SUMMARY | 2024-08-15 14:51 | XMS_ITS | Clinical Summary ---
Author Organization [facility] Address [address] [place] [address] Care Team Providers Care Maintenance Team Leader Name Role Phone Unavailable Primary Care Provider [...]
--- OUTSIDE RECORDS SUMMARY | 2024-08-15 14:51 | XMS_ITS | Referral Summary ---
Author Organization [facility] Address [address] [place] [address] Care Team Providers Care Solar Sales Estimator Name Role Phone Iqra Bonds Primary Care Provider [phone] Allergies No known active allergies Medications aspirin [...] on file Legal Sex Female 2:23 AM HUMAN RESOURCES PROFESSIONAL Gender Identity Not on file Sexual Orientation Not on file Last Filed Vital Signs Vital Sign Reading Time Taken Comments Blood Pressure 122/78 04/26/2023 3:05 PM HUMAN RESOURCES PROFESSIONAL Pulse 84 04/26/2023 3:05 PM HUMAN RESOURCES PROFESSIONAL Temperature 36.9 C (98.5 F) 12/16/2022 8:50 PM CDT Respiratory Rate 16 12/16/2022 8:50 PM CDT Oxygen Saturation 98% 04/26/2023 3:05 PM HUMAN RESOURCES PROFESSIONAL Inhaled Oxygen Concentration - - Weight 79.9 kg (176 lb 2.4 oz) 04/26/2023 3:05 P M HUMAN RESOURCES PROFESSIONAL Height 160 cm (5' 3 ) 12/16/2022 5:22 PM CDT Body Mass Index 31.2 12/16/2022 5:22 PM CDT Plan of Treatment Not on file Medical Devices Implanted Type Area Flour Worker Device Identifier Shelf Expiration Date Model / Serial / Lot Plate Plate Left: Ankle Insurance Care Teams Solar Sales Estimator Relationship Specialty Start Date End Date Iqra Bonds PA [address] [place] [address] PCP - General Physician Crime Laboratory Analyst 10/09/22
--- OUTSIDE RECORDS SUMMARY | 2024-08-15 14:51 | XMS_ITS | Clinical Summary ---
Author Organization [facility] [employer] Address [address] [place] [address] Care Team Providers Care Mobile Heavy Equipment Mechanic Name Role Phone Teresita Brantley MD Primary Care Provider [phone] [facility] [employer]non-owned Affiliates and Associated Physician Practices is amultiple site organization consisting of ambulatory clinics and hospital sitesin [place], [place], [place] and [place]. This disclosure is being madepursuant to the Care Everywhere program and may not contain all information available regarding this patient. Last updated 18.[facility] Allergies No known active allergies Medications * Be aware that medications may not be up to date on this document. Alwaysverify current medications with the patient. Medication Sig Dispensed Refills Start Date End Date Status Cholecalciferol 50 MCG (1999) Take 2,000 Units by mouth once daily Active risperiDONE (RisperDAL) 0.5 MG tablet TAKE 1 TABLET BY MOUTH TWICE DAILY DIRECTED 07/09/2023 Active venlafaxine XR 24hr (Effexor XR) 37.5 MG capsule Take 1 (one) capsule by mouth once daily As Directed. 07/09/2023 Active vitamin C (Ascorbic Acid) 1000 MG tablet Take 1 (one) tablet by mouth once daily Active aspirin EC (Ecotrin) 81 MG tablet Take 1 (one) tablet by mouth every morning 09/01/2022 Active atorvastatin (Lipitor) 40 MG tablet Take 1 (one) tablet by mouth 09/01/2022 Active hydrOXYzine HCl (Atarax) 25 MG tablet Take 1 (one) tablet by mouth 3 times daily as needed 11/08/2022 Active loperamide (Imodium) 2 MG capsule 11/10/2022 Active medroxyPROGESTERone (Depo-Provera) 150 MG/ML vial ADMINISTER 1 ML IN THE MUSCLE EVERY 3 MONTHS 04/29/2023 Active nicotine (Nicoderm CQ) 14 MG/24HR patch Apply 1 (one) patch to skin once daily 11/23/2022 Active pantoprazole EC (Protonix) 20 MG tablet Take 1 (one) tablet by mouth every morning 04/07/2023 Active prazosin (Minipress) 2 MG capsule 07/11/2023 Active Social History Tobacco Use Types Packs/Day Years Used Date Smoking Tobacco: Never Assessed Sex and Gender Information Value Date Recorded Sex Assigned at Not on file Gender Identity Not on file Sexual Orientation Not on file Last Filed Vital Signs Vital Sign Reading Time Taken Comments Blood Pressure 114/80 07/12/2023 8:41 AM CUPOLA TAPPER HELPER Pulse 79 07/12/2023 8:41 AM CUPOLA TAPPER HELPER Temperature - - Respiratory Rate - - Oxygen Saturation 97% 07/12/2023 8:41 AM CUPOLA TAPPER HELPER Inhaled Oxygen Concentration - - Weight 79.4 kg (175 lb) 07/12/2023 8:41 AM CUPOLA TAPPER HELPER Height 160 cm (5' 3 ) 07/12/2023 8:41 AM CUPOLA TAPPER HELPER Body Mass Index 31 07/12/2023 8:41 AM CUPOLA TAPPER HELPER Plan of Treatment Health Maintenance Due Date Last Done Comments MAMMOGRAM 1981 PAP SMEAR 1981 HIV SCREENING 1996 HEPATITIS C SCREENING 06/05/1999 DTAP/TDAP/TD VACCINES (1 - Tdap) 2000 HEPATITIS B VACCINE (1 of 3 - 19+ 3-dose series) 2000 SCREENING FOR DIABETES 07/12/2023 COVID-19 VACCINE (1 - 2023-2 5 season) 2024 INFLUENZA VACCINE (#1) 2024 DEPRESSION SCREENING 05/31/2024 ZOSTER VACCINE (1 of 2) 2031 HIB VACCINE Aged Out No longer eligi ble based on patient's age to complete this topic HPV VACCINE Aged Out No longer eligi ble based on patient's age to complete this topic MENINGOCOCCAL (Group B) VACC INE SHARED DECISION-MAKING Aged Out No longer eligibl e based on patient's age to complete this topic MENINGOCOCCAL GROUPS A/C/Y/W VACCINE Aged Out No longer eligible b ased on patient's age to complete this topic PNEUMOCOCCAL VACCINE Aged Out No long er eligible based on patient's age to complete this topic Care Teams Mobile Heavy Equipment Mechanic Relationship Specialty Start Date End Date Teresita Brantley MD [address] [place] [id number] PCP - General 10/31/20
== END 2024-08-15 14:18 | disposition home or self-care (01) ==
PROVIDERS: Emergency Provider Emergency Medicine; PCP Physician Assistant
DX: K64.4 Residual hemorrhoidal skin tags (principal); L03.311 Cellulitis of abdominal wall; R19.7 Diarrhea, unspecified; G89.4 Chronic pain syndrome; K21.9 Gastro-esophageal reflux disease without esophagitis; F32.A Depression, unspecified; F41.9 Anxiety disorder, unspecified; Z90.49 Acquired absence of other specified parts of digestive tract; F17.210 Nicotine dependence, cigarettes, uncomplicated; R16.0 Hepatomegaly, not elsewhere classified
CPT/HCPCS: 36415; 74177; 80053; 81003; 81025; 85025; 85610; 85730; 86850; 86900; 86901; 99284; Q9967

== ENCOUNTER 2024-08-30 16:04 | Emergency (ER) | payer BC, SELFPAY ==
--- NOTE | ~2024-08-30 | CT_ITS ---
CLINICAL INDICATION: Mid abdominal pain COMPARISON: 08/15/2024. TECHNIQUE: Multiple contiguous axial images of the abdomen and pelvis were performed following the ad ministration of with 100 mL Omnipaque-350 intravenous contrast The dose-length product (DLP) was 724.00 mGy-cm. Automated exposure control and iterative reconstruction technique were employed. FINDINGS/OBSERVATIONS: Visualized lower thorax: The bilateral lung bases are clear. The heart is of normal size, without pericardial effusion. Small hiatal hernia is present. Liver: The liver demonstrates homogeneous enhancement and is enlarged measuring 19 cm in longitudinal dimens ion. Gallbladder and biliary system: The gallbladder is surgically absent. Pancreas: The pancreas enhances homogeneously without ductal dilatation. Spleen: The spleen enhances homogeneously and is not enlarged measuring 8 cm in longitudinal dimension. Kidneys: The bilateral kidneys enhance symmetrically without hydronephrosis or renal calculi. Adrenal glands: Unremarkable. Gastrointestinal tract: Edematous mural thickening is identified within the cecum and ascending colon, with surrounding infla mmatory change for which a focal enteritis is suspected. The remainder of the colon is unremarkable. Appendix: The air-filled appendix is of normal caliber (axial series, images 127 through 131). Vasculature: Unremarkable. Lymph nodes: No pathologically enlarged or morphologically suspicious lymph nodes within the retroperitoneum or at the root of the mesentery. Pelvic structures: The bladder is distended, and otherwise unremarkable. The prostate gland is not enlarged. Body wall and musculoskeletal: Small fat-containing umbilical hernia. No significant degenerative disease within the lower thoracic or lumbosacral spine. IMPRESSION: Findings suggesting a focal enteritis within the cecum and ascending colon, as detailed above. Reviewed, dictated and finalized at location A.
[2024-08-30 16:27] VITALS: BP 137/91; PULSE 98; RESP 20; TEMP 36.6; O2SAT 100
--- OUTSIDE RECORDS SUMMARY | 2024-08-30 16:43 | XMS_ITS | Clinical Summary ---
Author Organization [email or web address] Address [address] [place] [address] Care Team Providers Care E Commerce Strategist Name Role Phone Teresita Brantley MD Primary Care Provider Source Comments [email or web address],non-owned Affiliates and Associated Physician Practices is amultiple site organization consisting of ambulatory clinics and hospital sitesin [place], [place], [place] and [place]. This disclosure is being madepursuant to the Care Everywhere program and may not contain all information available regarding this patient. Last updated 18.[place] Allergies No known active allergies Medications * [...] Comments Blood Pressure 114/80 07/12/2023 8:41 AM PACKAGING ASSOCIATE Pulse 79 07/12/2023 8:41 AM PACKAGING ASSOCIATE Temperature - - Respiratory Rate - - Oxygen Saturation 97% 07/12/2023 8:41 AM PACKAGING ASSOCIATE Inhaled Oxygen Concentration - - Weight 79.4 kg (175 lb) 07/12/2023 8:41 AM PACKAGING ASSOCIATE Height 160 cm (5' 3 ) 07/12/2023 8:41 AM PACKAGING ASSOCIATE Body Mass Index 31 07/12/2023 8:41 AM PACKAGING ASSOCIATE Plan of Treatment Health Maintenance Due Date Last Done Comments MAMMOGRAM 1981 PAP SMEAR 1981 HIV SCREENING 1996 HEPATITIS C SCREENING 06/05/1999 DTAP/TDAP/TD VACCINES (1 - Tdap) 2000 HEPATITIS B VACCINE (1 of 3 - 19+ 3-dose series) 2000 SCREENING FOR DIABETES 07/12/2023 COVID-19 VACCINE (1 - 2023-2 5 season) 2024 DEPRESSION SCREENING 05/31/2024 INFLUENZA VACCINE (Season Ended) 2025 ZOSTER VACCINE (1 of 2) 2031 HIB [...] age to complete this topic Care Teams E Commerce Strategist Relationship Specialty Start Date End Date Teresita Brantley MD [address] [place] [id number] PCP - General 10/31/20
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
--- OUTSIDE RECORDS SUMMARY | 2024-08-30 16:43 | XMS_ITS | Clinical Summary ---
Author Organization [facility] Address [address] [place] [address] Care Team Providers Care Nightman Name Role Phone Iqra Bonds Primary Care Provider [phone] Allergies No known active allergies Medications aspirin [...] on file Legal Sex Female 2:23 AM MUSIC AUTOGRAPHER Gender Identity Not on file Sexual Orientation Not on file Obstetrics History Last Filed Vital Signs Vital Sign Reading Time Taken Comments Blood Pressure 122/78 04/26/2023 3:05 PM MUSIC AUTOGRAPHER Pulse 84 04/26/2023 3:05 PM MUSIC AUTOGRAPHER Temperature 36.9 C (98.5 F) 12/16/2022 8:50 PM CDT Respiratory Rate 16 12/16/2022 8:50 PM CDT Oxygen Saturation 98% 04/26/2023 3:05 PM MUSIC AUTOGRAPHER Inhaled Oxygen Concentration - - Weight 79.9 kg (176 lb 2.4 oz) 04/26/2023 3:05 P M MUSIC AUTOGRAPHER Height 160 cm (5' 3 ) 12/16/2022 [...] 2021, 12/06/2020, Additional history exists Influenza Vaccine (Season Ended) 2025 HPV Vaccines Aged Out No longer eligi ble based on patient's age to complete this topic Medical Devices Implanted Type Area Kosher Dietary Service Supervisor Device Identifier Shelf Expiration Date Model / Serial / Lot Plate Plate Left: Ankle Insurance [facility] Care Teams Nightman Relationship Specialty Start Date End Date Iqra Bonds PA [address] [place], [place] [address] [address] PCP - General Physician J2Ee Engineer 10/09/22
--- OUTSIDE RECORDS SUMMARY | 2024-08-30 16:43 | XMS_ITS | Referral Summary ---
Author Organization [facility] Address [address] [place] [address] Care Team Providers Care Insurance Examining Clerk Name Role Phone Iqra Bonds Primary Care Provider [phone] Allergies No known active allergies Medications aspirin [...] on file Legal Sex Female 2:23 AM READING INSTRUCTOR Gender Identity Not on file Sexual Orientation Not on file Last Filed Vital Signs Vital Sign Reading Time Taken Comments Blood Pressure 122/78 04/26/2023 3:05 PM READING INSTRUCTOR Pulse 84 04/26/2023 3:05 PM READING INSTRUCTOR Temperature 36.9 C (98.5 F) 12/16/2022 8:50 PM CDT Respiratory Rate 16 12/16/2022 8:50 PM CDT Oxygen Saturation 98% 04/26/2023 3:05 PM READING INSTRUCTOR Inhaled Oxygen Concentration - - Weight 79.9 kg (176 lb 2.4 oz) 04/26/2023 3:05 P M READING INSTRUCTOR Height 160 cm (5' 3 ) 12/16/2022 5:22 PM CDT Body Mass Index 31.2 12/16/2022 5:22 PM CDT Plan of Treatment Not on file Medical Devices Implanted Type Area Open Hearth Laborer Device Identifier Shelf Expiration Date Model / Serial / Lot Plate Plate Left: Ankle Insurance Care Teams Insurance Examining Clerk Relationship Specialty Start Date End Date Iqra Bonds PA [address] [place] [address] PCP - General Physician Aircraft Maintenance Instructor 10/09/22
--- OUTSIDE RECORDS SUMMARY | 2024-08-30 16:43 | XMS_ITS | Clinical Summary ---
Author Organization [facility] Address [address] [place] [address] Care Team Providers Care Clinical Social Work Therapist Name Role Phone Unavailable Primary Care Provider [...]
--- NOTE | 2024-08-30 16:57 | ED_ITS ---
HPI - Abdominal Pain General Chief Complaint: Abdominal Pain Stated Complaint: abd pain Time Seen by Provider: 08/30/24 16:41 Source: patient and family Mode of arrival: ambulatory Limitations: no limitations History of Present Illness HPI narrative: 44 years old white female came to the ED from home by private car complaining of mid abdominal pain for weeks, twisting like feeling, associated with nausea and vomiting. Patient reports everything aggravate her abdominal pain, nothing make it better. History of cholecystectomy, chronic diarrhea after cholecystectomy, depression and anxiety. She denies any fever or chills. Related Data Home Medications ?Medication ?Instructions ?Recorded ?Confirmed ?Last Taken ?Type atorvastatin 40 mg tablet mg 08/15/24 Unknown History pantoprazole 20 mg tablet,delayed mg PO 08/15/24 Unknown History release prazosin 2 mg capsule mg 08/15/24 Unknown History risperidone 0.5 mg tablet mg 08/15/24 Unknown History Allergies Allergy/AdvReac Type Severity Reaction Status Date / Time No Known Allergies Allergy Verified 08/15/24 12:27 Review of Systems 2 Review of Systems: All systems reviewed & are unremarkable except as noted in HPI and below PMFSH Past Medical History Medical History Hx of migraines Depression Chronic pain syndrome Anxiety Stomach ulcer GERD (gastroesophageal reflux disease) Anxiety Surgical History Surgical History Hx laparoscopic cholecystectomy History of foot surgery left 2020 Family History Family History Father Heart attack Unknown Diabetes mellitus Mother Suicide Other Diabetes mellitus Hypertension Social History Social History Smoking packs per day: 0.75 Smoking cigarettes per day: 15.0 Years smoked: 22 Smoking pack-years: 16.50 Smoking status: Current every day smoker Tobacco type: cigarettes Alcohol intake: current Drinks per week: 1 Substance use: never Substance use type: does not use Living arrangements: with family Occupation/Education: unemployed Gender identity (if verbalized by the patient): Female Spiritual care concerns: No Exam 2 Narrative: General appearance: Well-developed, well-nourished Skin: Normal color Head: Normocephalic, nontraumatic Eyes: Clear conjunctiva ENT: Oropharynx normal, ears normal, nose normal Neck: Supple, nontender Chest and respiratory: Airway patent, no respiratory distress, no accessory muscle use Heart: Regular rate/rhythm Abdomen: Soft, diffuse tenderness, no organomegaly, quiet bowel sounds Vascular: Normal peripheral pulses, normal capillary refill. Musculoskeletal: Normal range of motion, nontender back Neurologic: Alert and oriented ?3, [place] is normal as tested, no gross motor deficit Course Vital Signs Vital signs: Vital Signs Temperature 36.6 C 08/30/24 16:27 Pulse Rate 98 08/30/24 16:27 Respiratory Rate 20 08/30/24 16:27 Blood Pressure 137/91 H 08/30/24 16:27 Pulse Oximetry 100 08/30/24 16:27 Oxygen Delivery Room Air 08/30/24 16:27 Temperature 36.6 C 08/30/24 16:27 Pulse Rate 95 08/30/24 20:37 Respiratory Rate 18 08/30/24 20:37 Blood Pressure 160/98 H 08/30/24 20:37 Pulse Oximetry 97 08/30/24 20:37 Oxygen Delivery Room Air 08/30/24 16:27 MDM - Abdominal Pain MDM Narrative Medical decision making narrative: Patient presents with abdominal pain for weeks Vital signs are stable Physical examination consistent with diffuse tenderness, patient looks very ill and pale Differential diagnosis include anxiety like symptoms, colitis, diverticulitis, urinary tract infection, pancreatitis, appendicitis, Blood workup today includes CBC, CMP, lipase SHOWED WBC 16.6, OTHERWISE WITHIN NORMAL LIMITS CT scan of the abdomen and pelvis with IV contrast showed FINDING SUGGESTING A FOCAL ENTERITIS WITHIN THE CECUM AND ASCENDING COLON PATIENT FEELING MUCH BETTER AFTER IV FLUID, AND DILAUDID IV 0.5 MG X 2. DIAGNOSIS ABDOMINAL PAIN OF UNKNOWN ETIOLOGY, ENTERITIS-SUSPECTED DISCHARGED ON AUGMENTIN, BENTYL AND ZOFRAN. DISCHARGE THE PT WAS DISCHARGED TO HOME.THE PT,S CONDITION UPON DISCHARGE WAS FAIR,EDUCATION WAS PROVIDED TO THE PT IN REFERENCE TO THE FINAL IMPRESSION,DISCHARGE STUDY RESULTS,TREATMENT,PROGNOSIS AND NEED FOR FOLLOW UP . Differential Diagnosis Differential diagnosis: Likely other (As above) Medical Records Attestation: I reviewed the patient's medical records. Lab Data Attestation: I reviewed the patient's lab results. 08/30/24 17:56 08/30/24 17:56 Labs: Lab Results 04/02/25 Range/Units 17:56 WBC 16.6 H (4.5-10.0) K/mm3 RBC 4.12 L (4.2-5.4) M/mm3 Hgb 14.3 (12.0-15.0) g/dL Hct 40.8 (37.0-47.0) % MCV 99.0 (80-100) fl MCH 34.7 H (26-34) pg MCHC 35.0 (32-36) g/dl RDW 13.7 (11.5-14.5) % Plt Count 303 (150-375) k/mm3 MPV 8.7 (7.4-10.4) fl Immature Gran % (Auto) 1.1 H (0-0.5) % Neut % (Auto) 85.2 H (45.5-73.1) % Lymph % (Auto) 9.4 L (18.3-44.2) % [place] % (Auto) 4.0 (2.6-8.5) % Eos % (Auto) 0.0 (0-4.4) % Baso % (Auto) 0.3 (0.2-1.2) % Lymph # (Auto) 1.56 (0.9-3.2) K/mm3 [place] # (Auto) 0.7 H (0.1-0.6) K/mm3 Eos # (Auto) 0.0 (0-0.3) K/mm3 Baso # (Auto) 0.1 (0.0-0.1) K/mm3 Abs Immat Gran (auto) 0.19 H (0.00-0.031) K/mm3 Absolute Neuts (auto) 14.1 H (1.3-6.7) K/mm3 Absolute Nucleated RBC 0.000 (0.0-0.012) K/mm3 Nucleated RBC % 0.0 (0.0-0.2) % Sodium 140 (137-145) mmol/L Potassium 3.5 (3.4-5.0) mmol/L Chloride 106 (98-107) mmol/L Carbon Dioxide 17 L (22-30) mmol/L Anion Gap 17 H (4-12) mmol/L BUN 14 (7-17) mg/dL Creatinine 0.85 (0.7-1.0) mg/dL Estim Creat Clear Calc 78 ml/min Estimated GFR > 60 (59 - ) Glucose 137 H (65-110) mg/dL Calcium 9.2 (8.4-10.2) mg/dL Total Bilirubin 1.1 (0.2-1.3) mg/dL AST 29 (14-36) U/L ALT 42 H (6-35) U/L Alkaline Phosphatase 99 (38-126) U/L Total Protein 8.0 (6.3-8.2) g/dL Albumin 4.7 (3.5-5.1) g/dL Lipase 14 L (23-300) U/L Imaging Data Radiologist's impression: ITS Impressions Abdomen/Pelvis CT 08/30/24 20:56 IMPRESSION: Findings suggesting a focal enteritis within the cecum and ascending colon, as detailed above. Critical Care Time Critical Care Time Critical Care Time: No Discharge Plan Discharge Clinical Impression: Abdominal pain, Enteritis Patient Disposition: Home, Self-Care Condition: Improved Instructions: Antibiotic Form, Abdominal Pain (ED), Enteritis (ED) Additional Instructions: RETURN IF SYMPTOMS ARE WORSENING , CALL YOUR FAMILY PHYSICIAN FOR APPOINTMENT, TAKE TYLENOL NEEDED FOR ACHES AND PAIN, CONTINUE HOME MEDICATIONS. Patient Language: Vietnamese Prescriptions: New amoxicillin-pot clavulanate [Augmentin] 500-125 mg tablet 1 tablet PO Q8H Qty: 21 0RF ondansetron HCl 4 mg tablet 4 mg PO Q4H Qty: 10 0RF Rx Instructions: 1st dose 1-2 hr before radiation dicyclomine 20 mg tablet 20 mg PO QID PRN (Reason: abdominal pain) Qty: 20 0RF No Action hydrocodone-acetaminophen 5-325 mg tablet 1 tablet PO Q6H PRN (Reason: pain) Qty: 5 0RF atorvastatin 40 mg tablet pantoprazole 20 mg tablet,delayed release (DR/EC) PO risperidone 0.5 mg tablet prazosin 2 mg capsule cephalexin 500 mg capsule 500 mg PO Q8H 7 Days Qty: 21 0RF Follow-up/Referrals: Cammie,FLORI Escalona [Primary Care Provider] - Danny Castillo MD [Physician] - 09/04/24
[2024-08-30] MEDS: ONDANSETRON INJ 4 MG/2 ML VIAL IV PUSH (17:46)
[2024-08-30] MEDS: HYDROmorphone HCL INJ (*CRX) 1 MG/ML SYR 0.5 MG IV PUSH (17:46)
[2024-08-30] MEDS: SODIUM CHLORIDE 0.9% IV 1,000 ML 999 ML IV CONT (17:46)
[2024-08-30 18:02] LABS: Basophils Absolute Auto 0.1 K/mm3 (0.0-0.1); Basophils Percent Auto 0.3 % (0.2-1.2); Hematocrit 40.8 % (37.0-47.0); Hemoglobin 14.3 g/dL (12.0-15.0); Immature Granulocyte Absolute 0.19 K/mm3 (0.00-0.031); Immature Granulocyte Percent A 1.1 % (0-0.5); Lymphocytes Absolute Auto 1.56 K/mm3 (0.9-3.2); Lymphocytes Percent Auto 9.4 % (18.3-44.2); Mean Corpuscular Hemoglobin 34.7 pg (26-34); Mean Platelet Volume 8.7 fl (7.4-10.4); Monocytes Absolute Auto 0.7 K/mm3 (0.1-0.6); Neutrophils Absolute Auto 14.1 K/mm3 (1.3-6.7); Neutrophils Percent Auto 85.2 % (45.5-73.1); Platelet Count Result 303 k/mm3 (150-375); Red Blood Count 4.12 M/mm3 (4.2-5.4); Red Cell Distribution Width 13.7 % (11.5-14.5); White Blood Count 16.6 K/mm3 (4.5-10.0)
[2024-08-30 18:16] LABS: Albumin Level 4.7 g/dL (3.5-5.1); Alkaline Phosphatase 99 U/L (38-126); Anion Gap 17 mmol/L (4-12); Aspartate Amino Transferase 29 U/L (14-36); Bilirubin,Total 1.1 mg/dL (0.2-1.3); Blood Urea Nitrogen 14 mg/dL (7-17); Calcium 9.2 mg/dL (8.4-10.2); Carbon Dioxide 17 mmol/L (22-30); Chloride 106 mmol/L (98-107); Estimated CRCL calculation 78 ml/min; Estimated Glomerular Filt Rate > 60; Glucose 137 mg/dL (65-110); Lipase 14 U/L (23-300); Potassium 3.5 mmol/L (3.4-5.0); Sodium 140 mmol/L (137-145)
[2024-08-30 18:23] LABS: Alanine Aminotransferase 42 U/L (6-35)
[2024-08-30] MEDS: diphenhydrAMINE HCl INJ 50 MG/ML VIAL IV PUSH (19:19)
[2024-08-30] MEDS: METOCLOPRAMIDE HCL INJ 10 MG/2 ML VIAL IV PUSH (19:19)
[2024-08-30 20:37] VITALS: BP 160/98; PULSE 95; RESP 18; O2SAT 97
[2024-08-30] MEDS: LORazepam INJ (*CRX) 2 MG/ML VIAL 1 MG IV PUSH (21:24)
[2024-08-30 22:32] LABS: Add Urine Microscopic? YES; Appearance Urine Clear (Clear); Bacteria Urine None Seen /hpf; Bilirubin Urine Negative (Negative); Blood Urine 1+ (Negative); Color Urine Yellow (Yellow); Glucose Urine UA Negative (Negative); Ketones Urine Trace mg/dL (Negative); Leukocyte Esterase Ur Negative LEU/UL (Negative); Need Manual Microscopic Reviewed; Nitrate Urine Negative (Negative); Non Pathogenic Casts 0-2; Protein Urine 1+ mg/dL (Negative); RBC Urine 21-50 /hpf (0-2); Specific Grav Ur > 1.045 (1.001-1.035); Squamous Epithelial Cell Urine Occasional /hpf (Few); Urobilinogen Urine 0.2 mg/dL (<2.0); WBC Urine 0-5 /hpf (0-3); pH Urine 6.5 (5.0-9.0)
== END 2024-08-30 23:11 | disposition home or self-care (01) ==
PROVIDERS: Emergency Provider Emergency Medicine; PCP Physician Assistant
DX: K52.9 Noninfective gastroenteritis and colitis, unspecified (principal); F17.210 Nicotine dependence, cigarettes, uncomplicated; Z90.49 Acquired absence of other specified parts of digestive tract; Z79.899 Other long term (current) drug therapy
CPT/HCPCS: 36415; 74177; 80053; 81001; 83690; 85025; 96361; 96374; 96375; 99284; J1171; J1200; J2060; J2405; J2765; J7030; Q9967

== ENCOUNTER 2024-10-10 09:10 | Emergency (ER) | payer BC, SELFPAY ==
[2024-10-10 09:16] VITALS: BP 127/105; PULSE 102; RESP 20; TEMP 36.6; O2SAT 99
--- NOTE | 2024-10-10 10:16 | ED_ITS ---
HPI - Skin/Abscess/Foreign Bdy General Chief complaint: Skin/Abscess/Foreign Body Stated complaint: rash on neck/chest Time Seen by Provider: 10/10/24 10:16 Source: patient Mode of arrival: ambulatory Limitations: no limitations History of Present Illness HPI narrative: 44-year-old female presented for complaint of a red itchy rash to the left upper chest. Onset yesterday. Patient endorses itchy watery and swollen eyes yesterday, which has resolved. Has not applied anything to rash or taken anything for treatment. Denies lip, tongue, or throat swelling, shortness of breath or wheezing. Denies changes to soap, detergent, lotion, or any other exposures. No one else in the house or any contacts with similar symptoms. Related Data Home Medications ?Medication ?Instructions ?Recorded ?Confirmed ?Last Taken ?Type atorvastatin 40 mg tablet 40 mg PO QPM 08/15/24 10/10/24 Unknown History prazosin 2 mg capsule 2 mg PO QPM 08/15/24 10/10/24 Unknown History risperidone 0.5 mg tablet 0.5 mg PO DAILY 08/15/24 10/10/24 Unknown History famotidine 20 mg tablet 20 mg PO DAILY 10/10/24 10/10/24 Unknown History medroxyprogesterone 150 mg/mL 150 mg IM .q 3 months 10/10/24 10/10/24 Unknown History intramuscular suspension naltrexone 50 mg tablet 50 mg PO Q24H 10/10/24 10/10/24 Unknown History venlafaxine 75 mg capsule,extended 75 mg PO QPM 10/10/24 10/10/24 Unknown History release 24 hr Allergies Allergy/AdvReac Type Severity Reaction Status Date / Time No Known Allergies Allergy Verified 10/10/24 09:16 Review of Systems Review of Systems: CONSTITUTIONAL: Denies body aches, fever, chills, or sweats. EYES: Denies visual changes, redness, or discharge. ENT: Denies rhinorrhea, congestion CARDIOVASCULAR: Denies chest pain, palpitations, or edema. RESPIRATORY: Denies cough or dyspnea. GASTROINTESTINAL: Denies abdominal pain, nausea, vomiting, or diarrhea. SKIN: per HPI MUSCULOSKELETAL: Denies back pain, joint pain, or myalgia. NEUROLOGIC: Denies headache, numbness, tingling, or weakness. [facility] Past Medical History Medical History Hx of migraines Depression Chronic pain syndrome Anxiety Stomach ulcer GERD (gastroesophageal reflux disease) Anxiety Surgical History Surgical History Hx laparoscopic cholecystectomy History of foot surgery left 2020 Family History Family History Father Heart attack Unknown Diabetes mellitus Mother Suicide Other Diabetes mellitus Hypertension Social History Social History Smoking packs per day: 0.75 Smoking cigarettes per day: 15.0 Years smoked: 22 Smoking pack-years: 16.50 Smoking status: Current every day smoker Tobacco type: cigarettes Alcohol intake: current Drinks per week: 1 Substance use: never Substance use type: does not use Living arrangements: with family Occupation/Education: unemployed Gender identity (if verbalized by the patient): Female Spiritual care concerns: No Comments At time of signature, I have reviewed and agree with nursing past medical, surgical, social and family history unless otherwise noted. Please see nursing chart for further information. There is no relevant family history pertinent to the presenting complaint Exam Narrative: GENERAL: Well-appearing HEAD: Normocephalic, atraumatic. EYES: conjunctivae clear, and EOMI. ENT: Mucous membranes moist. Oropharynx without edema, erythema or lesions. NECK: Supple. No lymphadenopathy CHEST: Clear to auscultation. HEART: Regular rate and rhythm. SKIN: Warm, dry. left upper chest with scattered erythematous vesicular lesions, less than 20 lesions. No active drainage, nontender. NEURO: Alert and oriented x3. Course Course Emergency Course: Patient is aware of diagnosis, understands and agrees to treatment plan. Anticipatory guidance given. Patient agrees to follow-up as directed and is aware of reasons to seek care at the emergency department. Portions of this record may have been created with voice recognition software Level of Care: Express Care Visit Vital Signs Vital signs: Vital Signs Temperature 97.8 F 10/10/24 09:16 Pulse Rate 102 H 10/10/24 09:16 Respiratory Rate 20 10/10/24 09:16 Blood Pressure 127/105 H 10/10/24 09:16 Pulse Oximetry 99 10/10/24 09:16 Oxygen Delivery Room Air 10/10/24 09:16 Temperature 97.8 F 10/10/24 09:16 Pulse Rate 102 H 10/10/24 09:16 Respiratory Rate 20 10/10/24 09:16 Blood Pressure 127/105 H 10/10/24 09:16 Pulse Oximetry 99 10/10/24 09:16 Oxygen Delivery Room Air 10/10/24 09:16 Reviewed MDM - Skin/Abscess/Foreign Bdy MDM Narrative Medical decision making narrative: Discussed physical exam findings, reviewed RX. Advised supportive measures and signs/symptoms to go to the ER. Pt is appropriate for outpt treatment and f/u. Differential Diagnosis Differential diagnosis: Likely abscess of skin or subcutaneous tissue, viral exanthem, dermatophytosis, urticaria, herpes zoster, cellulitis, eczema, insect bites, impetigo and contact dermatitis Discharge Plan Discharge Clinical Impression: Dermatitis Patient Disposition: Home Condition: Stable Instructions: Antibiotic Form, Acute Rash (ED) Additional Instructions: Take the medication as prescribed Take Zyrtec or Benadryl for itching according to package directions Wash the area with gentle soap and water only. Use skin cream such as Benadryl, calamine, or IvyDry as needed to reduce itchiness Avoid scratching when possible to prevent worsening of the condition and disruption of the skin that could lead to bacterial infection To relieve itching, place a cool washcloth or some ice over the area that itches, rather than scratching Follow up with primary care provider go to the ER if rash worsens or you have chest pain, trouble breathing, become hoarse, or start wheezing, develop belly cramps, vomiting or feel dizzy etc. Patient Language: Portuguese Prescriptions: New prednisone 20 mg tablet 40 mg PO DAILY 5 Days Qty: 10 0RF No Action famotidine 20 mg tablet 20 mg PO DAILY medroxyprogesterone 150 mg/mL suspension 150 mg IM .q 3 months naltrexone 50 mg tablet 50 mg PO Q24H venlafaxine 75 mg capsule,extended release 24hr 75 mg PO QPM atorvastatin 40 mg tablet 40 mg PO QPM risperidone 0.5 mg tablet 0.5 mg PO DAILY prazosin 2 mg capsule 2 mg PO QPM dicyclomine 20 mg tablet 20 mg PO QID PRN (Reason: abdominal pain) Qty: 20 0RF Follow-up/Referrals: Cammie,FLORI Escalona [Primary Care Provider] - Time of Disposition: 10:31
== END 2024-10-10 10:34 | disposition home or self-care (01) ==
PROVIDERS: Emergency Provider Nurse Practitioner Family; PCP Physician Assistant
DX: L30.9 Dermatitis, unspecified (principal); F17.210 Nicotine dependence, cigarettes, uncomplicated; K21.9 Gastro-esophageal reflux disease without esophagitis; F41.9 Anxiety disorder, unspecified; F32.A Depression, unspecified
CPT/HCPCS: 99213; G0463

== ENCOUNTER 2024-12-24 21:18 | Emergency (ER) | payer BC, SELFPAY ==
--- OUTSIDE RECORDS SUMMARY | 2024-12-24 21:20 | XMS_ITS | Referral Summary ---
Author Organization [facility] Address [address] [place] [address] Care Team Providers Care Briar Wood Sorter Name Role Phone Iqra Bonds Primary Care Provider [phone] Allergies No known active allergies Medications aspirin [...] on file Legal Sex Female 2:23 AM [employer] Gender Identity Not on file Sexual Orientation Not on file Last Filed Vital Signs Vital Sign Reading Time Taken Comments Blood Pressure 122/78 04/26/2023 3:05 PM [employer] Pulse 84 04/26/2023 3:05 PM [employer] Temperature 36.9 C (98.5 F) 12/16/2022 8:50 PM CDT Respiratory Rate 16 12/16/2022 8:50 PM CDT Oxygen Saturation 98% 04/26/2023 3:05 PM [employer] Inhaled Oxygen Concentration - - Weight 79.9 kg (176 lb 2.4 oz) 04/26/2023 3:05 P M [employer] Height 160 cm (5' 3) 12/16/2022 5:22 PM CDT Body Mass Index 31.2 12/16/2022 5:22 PM CDT Plan of Treatment Not on file Medical Devices Implanted Type Area Casting Cleaner Device Identifier Shelf Expiration Date Model / Serial / Lot Plate Plate Left: Ankle [employer] Tank Top TV ACCESS CHOICE ANTH ACCESS CHOICE Care Teams Briar Wood Sorter Relationship Specialty Start Date End Date Iqra Bonds PA [address] [place] [id number] PCP - General Physician Ergonomist 10/09/22
--- OUTSIDE RECORDS SUMMARY | 2024-12-24 21:20 | XMS_ITS | Clinical Summary ---
Author Organization [facility] Address [address] [place] [address] Care Team Providers Care Drug Abuse Social Worker Name Role Phone Unavailable Primary Care Provider [...] of 3 - 19+ 3-dose series) 2000 HPV Vaccines (1 - 3-dose SCD M series) 2008 Cervical Cancer Screening Pa p with HPV Testing (Age 30 to 64) Every 5 Years 2011 Cervical Cancer Screening with HPV 2011 Mammogram Screening 2021 COVID-19 Vaccine ( - 2023-2 5 season) 2024 Meningococcal B Vaccine Aged Out No l onger eligible based on patient's age to complete this topic Meningococcal Vaccine Aged Out No timothy amaya eligible based on patient's age to complete this topic Pneumococcal Vaccine: Pediat rics (0 to 5 Years) and At-Risk Patients (6 to 49 Years) Aged Out No longer eligible b ased on patient's age to complete this topic RSV Immunizations Under 20 Months Aged Out No longer eligible based on patient's age to complete this topic
--- OUTSIDE RECORDS SUMMARY | 2024-12-24 21:20 | XMS_ITS | Data Portability ---
Author Organization [facility] Address [address] [place] [address] Care Team Providers Care Senior Sales Consultant Name Role Phone KOREY BEYER Primary Care Provider [phone] Assessment No assessment recorded. Plan of Treatment Reminders Order Date Submit Date Provider Last Modified By Organization Details Last Modified Time Details Appointments None recorded. Lab test, urine 2023 024 [facility], [facility] [address], [address], [place], [address], 4 13:53:59 Referral pelvic floor therapy referral 2023 024 [facility], [address] , [place], [address], 4 05:01:36 pelvic floor therapy referral 2023 024 [facility] (Outpatient Physical Therapy), [address], [place], [address], 4 11:37:30 [facility]rologist [facility] 2023 024 [email or web address] [address], [facility] [address], [place], [address], 4 14:29:19 Procedures None recorded. Surgeries None recorded. Imaging None recorded. Medication Orders clindamycin 1 % topical gel 2023 024 [facility] #[id number], [address] [facility], [place], [place], [id number], 4 10:54:33 Mirena 21 mcg/24 hr (up to 8 years) 52 mg intrauterin e device 2023 024 [email or web address] Not available 4 10:15:33 metronidazo le 0.75 % (37.5 mg/5 gram) vaginal gel 2022 023 [email or web address] 1 [facility] #67054, [address] [place], [place], [id number], 4 09:28:42 mupirocin 2 % topical ointment 2022 024 DEM[facility] #81813, [address] [place], [place], [id number], 4 09:29:01 Patient TargetsNo targets recorded. Patient InstructionsNo instructions recorded. Reason for Referral Pelvic Floor Therapy Referra l for Mixed urinary incontinence Referring Physician: Starla Pedraza SENIOR LINUX UNIX ADMINISTRATOR, Encounter Date: 06/07/2023 Urologist Referral for Mixed urinary incontinence Referring Physician: Starla Pedraza SENIOR LINUX UNIX ADMINISTRATOR, Encounter Date: 06/07/2023 Pelvic Floor Therapy Referra l for Mixed urinary incontinence Referring Physician: Starla Pedraza SENIOR LINUX UNIX ADMINISTRATOR, Encounter Date: 09/13/2023 Results Created Date Observation Date Name Description Value Unit Range Abnormal Flag Note LastModifiedBy Organization Detail LastModifiedTime 05/10/20 23 05/10/2023 CULTU RE: AEROB IC/AN AEROB IC culture: aerobic/anae robic CANCEL LED Wrong Conta iner/ Swab Not Available [facility] (Lab) [address] , [place], [address], 05/11/2023 10:55:55 06/07/19 24 06/07/2023 CULTU RE: AEROB IC/AN AEROB IC result report SEE RESULT S BELOW abnormal Test: Cultu re: Aerob ic/An aerob ic Speci men Sourc e: Other Speci men Type: Micro biolo gy Speci men Speci men Date: 024 4:57 PM Resul t Date: 2023 10:26 AM Resul t Statu s: Final resul t Abnor mal: Yes Resul arminda Lab: [facility] [address] [facility] [address] Tel: CULTU RE ----- ----- ----- --- Light Growt h Maria Elena l skin brenda Cultu re sampl es colle cted from sites that are proxi mal to maria elena l anaer obic brenda , do not provi de usefu l infor dorian n. The anaer obic porti on of this cultu re has been credi елена. STAIN ----- ----- ----- --- Very few Gram posit ben cocci seen Very few Gram posit ben rods seen Not Available [facility] (Lab) [address], [place], [address], 06/10/2023 11:29:57 06/07/19 24 06/07/2023 CULTU RE: HERPE S SIMPL EX VIRUS (HSV) , REFLE X TYPIN G source LESION SCRAPI NGS Not Available [facility] (Lab) [address], [place], [address], 06/10/2023 11:29:58 06/07/19 24 06/07/2023 CULTU RE: HERPE S SIMPL EX VIRUS (HSV) , REFLE X TYPIN G hsv culture, body fluid NOT ISOLAT ED Perfo rming Organ izati on Infor dorian n: Site ID: CB Name: [facility] Addre ss: [address] [place] [address] Direc tor: Antho ny V María s Not Available [facility] (Lab) [address] [place], [address], 06/10/2023 11:29:58 06/28/19 24 06/28/2023 pregn kristopher test, urine HCG negati ve Not Available [facility] [address], [place], [address], 06/28/2023 13:53:52 09/13/19 24 09/13/2023 CULTU RE: AEROB IC/AN AEROB IC result report SEE RESULT S BELOW abnormal Test: Cultu re: Aerob ic/An aerob ic Speci men Sourc e: Vulva Speci men Type: Micro biolo gy Speci men Speci men Date: 2023 11:56 AM Resul t Date: 2023 7:10 AM Resul t Statu s: Final resul t Abnor mal: Yes Resul keithg Lab: [facility] [address] [facility] [address] Tel: CULTU RE ----- ----- ----- --- [...] No Neutr ophil s seen Not Available [facility] (Lab) [address], [place], [address], 09/16/2023 08:15:56 Result Notes None recorded. Procedures Surgical History Date Name Laterality Status Provider Name and Address Organization Details Recorded Time 06/28 IUD Insertion completed ROSALINE Nova [address], [place], [address], [place] [facility] 13:53:23 05/31 cholecystectomy completed Anel Rubio [facility] 4 14:08:23 12/03 procedure on hand completed Anel Rubio [facility] 3 11:09:34 11/28 [facility] 11:10:28 10/29 esophagogastroduodenoscopy completed Milton bedoya Ramiro [facility] 3 11:10:16 05/31 procedure on foot [facility] 11:11:07 Imaging Results [...] Body mass index (BMI) Body weight Systolic And Diastolic Provider Name and Address Organization Details Last Updated DateTime 06/07/2023 160.02 cm 31.9 kg/m2 91480.63 g 117/81 mm[Hg] Anel Rubio [facility] 06/07/2023 09:28:26 Date Recorded Body height Body mass index (BMI) Body weight Systolic And Diastolic Provider Name and Address Organization Details Last Updated DateTime 06/28/2023 160.02 cm 31.9 kg/m2 50315.63 g 112/75 mm[Hg] Mechelle Wall [facility] 06/28/2023 09:15:28 Date Recorded Body height Body mass index (BMI) Body weight Systolic And Diastolic Provider Name and Address Organization Details Last Updated DateTime 09/13/2023 160.02 cm 32.8 kg/m2 64254.59 g 108/76 mm[Hg] Mishel Crowe [facility] 09/13/2023 10:13:48 Date Recorded Body height Body mass index (BMI) Body weight Systolic And Diastolic Provider Name and Address Organization Details Last Updated DateTime 05/10/2023 160.02 cm 31.7 kg/m2 55791.03 g 93/66 mm[Hg] Anel Rubio [facility] 05/10/2023 11:04:22 Social History Question Answer Notes LastModified by Organizat ion Details LastModified Time Tobacco Smoking Status Current Every Day Smoker Anel Rubio [facility] 05/10/2023 11:08:53 Are You Blind Or Do You Have Difficulty Seeing? No [email or web address] Information not available 05/10/2023 What Is Your Level Of Caffeine Consumption? Occasional [email or web address] Information not available 05/10/2023 In The 14 Days Before Symptom Onset, Have You Had Close Contact With A Laboratory-confir med COVID-19 While That Case Was Ill? No [email or web address] Information not available 05/10/2023 In The 14 Days Before Symptom Onset, Have You Had Close Contact With A Person Who Is Under Investigation For COVID-19 While That Person Was Ill? No [email or web address] Information not available 05/10/2023 Have You Been To An Area Known To Be High Risk For COVID-19? No [email or web address] Information not available 05/10/2023 Are You Deaf Or Do You Have Serious Difficulty Hearing? No [email or web address] Information not available 05/10/2023 What Type Of Diet Are You Following? REGULAR [email or web address] Information not available 05/10/2023 Do You Use Your Seat Belt Or Car Seat Routinely? Yes [email or web address] Information not available 05/10/2023 Are You Sexually Active? No Information not available 05/10/2023 Do You Have Smoke And Carbon Monoxide Detectors In Your Home? Yes [email or web address] Information not available 05/10/2023 Do You Use Sunscreen Routinely? Yes [email or web address] Information not available 05/10/2023 Has Tobacco Cessation Counseling Been Provided? No [email or web address] Information not available 05/10/2023 Have You Used IV Drugs? No [email or web address] Information not available 05/10/2023 Do You Have Difficulty Walking Or Climbing Stairs? No [email or web address] Information not available 05/10/2023 Sex: Unknown Functional Status Question Answer Note LastModified by Organizat ion Details LastModified Time Do you use any illicit or recreational drugs? Yes marijuana [email or web address] Information not available 05/10/2023 Do you or have you ever used any other forms of tobacco or nicotine? Yes [email or web address] Information not available 05/10/2023 What is your level of alcohol consumption? None history of alcohol abuse [email or web address] Information not available 05/10/2023 Are you able to walk? YESWOREST [email or web address] Information not available 05/10/2023 Are you able to care for yourself independently? Yes [email or web address] Information not available 05/10/2023 Do you have difficulty dressing, bathing, grooming, or toileting? No [email or web address] Information not available 05/10/2023 Do you or have you ever used e-cigarettes or vape? Current user of electronic cigarettes Information not available 05/10/2023 What is your exercise level? Occasional [email or web address] Information not available 05/10/2023 Mental Status Question Answer Note LastModified by Organization D etails LastModified Time Do you feel stressed (tense, restless, nervous, or anxious, or unable to sleep at night)? [id number] [email or web address] Information not available 05/10/2023 Family History Nothing Reported. Medical History Condition Response Allergies (Food, seasonal, environmental ) N Other N Blood Transfusion N Drug/Latex Allergies/Reactions N Breast Cancer N Dermatologic Disorders N Lung Disease N Defects or Inherited Disease N Breast Problem N Gestational Diabetes N Hematologic disorders N Anesthesia Complications N History of STI N Deep Vein Thrombosis N Polycystic ovary syndrome N Anxiety Disorder Y Autoimmune disease N Arthritis N Infertility N Polyps N Acid Reflux (GERD) Y History of abnormal pap N Cancer N Stroke N Varicosities N Neurologic/Epilepsy Y Endometriosis N High Cholesterol Y Headaches N Fibromyalgia N Kidney Disease N Heart Problems N Kidney or Bladder Problems N Thyroid Problems N GI Problems Y Eating Disorder [...] 06/26/2023 HPV Vaccine N Current Control Method Depo-Transport Assistant a Date of Last Colonoscopy Sexually Active? Y Menses Monthly N Date of DEXA bone scan Date of Last Pap Smear Sexual Problems? N LMP Definite Obstetrics History GPAL:G 0 P 0 0 0 0 Type Value Living 0 Total 0 Past Encounters Encounter ID Performer Location Encounter Start Date Encounter Closed Date Diagnosis/Indication Diagnosis SNOMED-CT Code Diagnosis ICD10 Code Diagnosis Note [id number] ROSALINE Nova [facility] [address],[facility] [place] [address] 05/10/2023 10:34:10 05/10/2023 14:58:08 Vaginitis 54694610 N76.0 detailed health hx obtained and reviewed [...] and review of plan of care. Folliculitis 75858684 L7 3.9 Venereal d isease screening 370748303 Z11.3 [id number] Starla Pedraza KALYANI [facility] [address] [address] 06/07/2023 09:08:33 06/07/2023 11:58:00 Contraception care management 111413391 Z30.9 Discussed all BC optionsopt s for Mirena IUDr/b/a reviewedRT C for insertion prior to next depo due date Mixed urin rosa incontinence 586025028 N39.46 Reviewed management optionsrec ommended PFPT and urology consult - referrals placed, encouraged to schedule Lesion of vulva 01704818 6 N90.89 cx and HSV PCR sentvulvar care guidelines reviewedav oid shaving until healed, precaution s reviewed Time spent in visit is a total of 30 mins with at least 50% of visit consisting of counseling and review of plan of care. [id number] ROSALINE Nova [facility] [address] [address] 06/28/2023 09:01:47 06/29/2023 12:07:47 Insertion of intrauterine contraceptive device 82973450 Z30.430 IUD placement attempted, procedure discontinu ed per pt request (see procedure note)pt desires to continue with DMPA as BC method Procedure discontinued by patient 454706504 Z53.20 [id number] ROSALINE Nova [facility] [address] [address] 09/13/2023 09:50:35 09/14/2023 04:26:42 Furuncle of vulva 231678679 N76.4 cx sent of site of resolving furuncledi scussed vulvar care guidelines clindamyci n topical gel for recurrent furuncles, r/b/a reviewedpr ecautions discussed, questions answered Mixed urin rosa incontinence 643693761 N39.46 Desires to continue with PFPT, referral placed Time spent in visit is a total of 20 mins with at least 50% of visit consisting of counseling and review of plan of care. Health Concerns Section Related Observation LastModified by Organization Detai ls LastModified Time None Recorded Concern Status LastModified by Organization Details LastModified Time None Recorded Advance Directives Directive None Recorded Payers Insurance Date Sequence Insurance Name Policy Number Policy Gonzáles Covered Member ID Gonzáles Member ID Guarantor Name 09/10/2023 1 [facility] ON OR AFTER 11/28/20 (MEDICAID REPLACEMENT - HMO) Sterling Tillman [id number] Sterling Tillman Notes Date Note Type Note Provider Name and Address Organization Details Recorded Time 05/10/2023 text/html Vaginal/Vulvar ProblemReported by Patient 42yo [id number] for evaluation of recurrent BVsymptoms on and off x 1 yrwhite/clear discharge, strong fishy odoritching on and off, none nowDMPA for period control/regulation, same sex partnerwears daily panty liner d/t d/cneg pelvic painneg n/v/fneg flu-like symptoms boils/ingrown hairs on vulva that come and go ROSALINE Nova [address], [place], [address], [facility] 05/10/2023 14:39:45 06/07/2023 text/html 42yopresents to discuss BCcurrently on DMPA for period regulation, last injection in Decint in IUDhas been experiencing mixed urinary incontinence x 2 yrs - leaking with coughing/laughing/ex ercise, leaking on the way to the bathroom. Wears panty liners often d/t this, feels like there is a constant strong urine smell d/t leaking.Has an area of irritation on mons - feels like a small cut. No discharge from this area, slight tenderness.SA with same sex partnerlast pap 2021 - normal ROSALINE Nova [address], [place], [address], [facility] 06/07/2023 11:37:06 06/28/2023 text/html 43yopresents for mirena IUD insertionon DMPA currently for period regulation and would like to switch to IUD ROSALINE Nova [address], [place], [address], [facility] 06/29/2023 09:59:25 09/13/2023 text/html 43yo J7eljobqen for vulvar boilsoften will get boils on the vulva and monshas one that resolved a few days ago, but no pain/drainage/or current symptomsneg n/v/fneg flu-like symptoms completed pelvic floor physical therapy for mixed urinary incontinence. [place] like it improved her symptoms but still feels like there is room for improvement. Has been doing exercises at home but discussed with PT that she would benefit from additional sessions and needs new referral. ROSALINE Nova [address], [place], [address], [facility] 09/13/2023 15:23:13 OBGyn Episode No OBEpisode recorded.
--- OUTSIDE RECORDS SUMMARY | 2024-12-24 21:20 | XMS_ITS | Clinical Summary ---
Author Organization [facility] Address [address] [place] [address] Care Team Providers Care Carbonating Stone Cleaner Name Role Phone Iqra Bonds Primary Care Provider [phone] Allergies No known active allergies Medications aspirin [...] on file Legal Sex Female 2:23 AM REPLENISHMENT ANALYST Gender Identity Not on file Sexual Orientation Not on file Obstetrics History Last Filed Vital Signs Vital Sign Reading Time Taken Comments Blood Pressure 122/78 04/26/2023 3:05 PM REPLENISHMENT ANALYST Pulse 84 04/26/2023 3:05 PM REPLENISHMENT ANALYST Temperature 36.9 C (98.5 F) 12/16/2022 8:50 PM CDT Respiratory Rate 16 12/16/2022 8:50 PM CDT Oxygen Saturation 98% 04/26/2023 3:05 PM REPLENISHMENT ANALYST Inhaled Oxygen Concentration - - Weight 79.9 kg (176 lb 2.4 oz) 04/26/2023 3:05 P M REPLENISHMENT ANALYST Height 160 cm (5' 3) 12/16/2022 5:22 [...] <65 (1 of 2 - PCV) 2000 HPV Vaccines (1 - 3-dose SCD M series) 2008 Covid-19 Vaccine ( - 2023-2 5 season) 2024 07/10/2021, 2021, 12/06/2020, Additional history exists Influenza Vaccine (#1) 2025 Medical Devices Implanted Type Area Drug Discovery Informatics Specialist Device Identifier Shelf Expiration Date Model / Serial / Lot Plate Plate Left: Ankle Insurance [facility] ANTHEM ACCESS CHOICE ANTHEM ACCESS CHOICE Care Teams Carbonating Stone Cleaner Relationship Specialty Start Date End Date Iqra Bonds PA [address] [place] [id number] PCP - General Physician Development And Housing Director 10/09/22
--- OUTSIDE RECORDS SUMMARY | 2024-12-24 21:20 | XMS_ITS | Clinical Summary ---
Author Organization [facility] Address [address] [place] [address] Care Team Providers Care Predictive Maintenance Technician Name Role Phone Teresita Brantley MD Primary Care Provider [phone] Source Comments [facility],non-owned Affiliates and Associated Physician Practices is amultiple site organization consisting of ambulatory clinics and hospital sitesin [place], [place], [place] and [place]. This disclosure is being madepursuant to the Care Everywhere program and may not contain all information available regarding this patient. Last updated 18.[facility] Allergies No known active allergies Medications * Be aware that medications may not be up to date on this document. Alwaysverify current medications with the patient. Cholecalciferol 50 MCG (1999) Take 2,000 Units by mouth once daily Active risperiDONE (RisperDAL) 0.5 MG tablet TAKE 1 TABLET BY MOUTH TWICE DAILY DIRECTED 4 Active venlafaxine XR 24hr (Effexor XR) 37.5 MG capsule Take 1 (one) capsule by mouth once daily As Directed. 4 Active vitamin C (Ascorbic Acid) 1000 MG tablet Take 1 (one) tablet by mouth once daily Active aspirin EC (Ecotrin) 81 MG tablet Take 1 (one) tablet by mouth every morning 3 Active atorvastatin (Lipitor) 40 MG tablet Take 1 (one) tablet by mouth 3 Active hydrOXYzine HCl (Atarax) 25 MG tablet Take 1 (one) tablet by mouth 3 times daily as needed 3 Active loperamide (Imodium) 2 MG capsule 3 Active medroxyPROGESTE Miller (Depo-Provera) 150 MG/ML vial ADMINISTER 1 ML IN THE MUSCLE EVERY 3 MONTHS 3 Active nicotine (Nicoderm CQ) 14 MG/24HR patch Apply 1 (one) patch to skin once daily 3 Active pantoprazole EC (Protonix) 20 MG tablet Take 1 (one) tablet by mouth every morning 3 Active prazosin (Minipress) 2 MG capsule 4 Active Social History Tobacco Use Types Packs/Day Years Used Date Smoking Tobacco: Never Assessed Comments Unknown Sex and Gender Information Value Date Recorded Sex Assigned at Not on file Legal Sex Female 6:00 AM CONTACT LENS BLOCKER Gender Identity Not on file Sexual Orientation Not on file Last Filed Vital Signs Vital Sign Reading Time Taken Comments Blood Pressure 114/80 07/12/2023 8:41 AM CONTACT LENS BLOCKER Pulse 79 07/12/2023 8:41 AM CONTACT LENS BLOCKER Temperature - - Respiratory Rate - - Oxygen Saturation 97% 07/12/2023 8:41 AM CONTACT LENS BLOCKER Inhaled Oxygen Concentration - - Weight 79.4 kg (175 lb) 07/12/2023 8:41 AM CONTACT LENS BLOCKER Height 160 cm (5' 3) 07/12/2023 8:41 AM CONTACT LENS BLOCKER Body Mass Index 31 07/12/2023 8:41 AM CONTACT LENS BLOCKER Plan of Treatment Health Maintenance Due Date Last Done Comments MAMMOGRAM 1981 HIV SCREENING 1996 HEPATITIS C SCREENING 06/05/1999 DTAP/TDAP/TD VACCINES (1 - Tdap) 2000 HEPATITIS B VACCINE (1 of 3 - 19+ 3-dose series) 2000 PAP SMEAR 2002 HPV VACCINE (1 - 3-dose SCDM series) 2008 SCREENING FOR DIABETES 07/12/2023 COVID-19 VACCINE ( - 2023-2 5 season) 2024 DEPRESSION SCREENING 05/31/2024 INFLUENZA VACCINE (#1) 2025 ZOSTER VACCINE (1 of 2) 2031 [...] on patient's age to complete this topic Insurance Care Teams Predictive Maintenance Technician Relationship Specialty Start Date End Date Teresita Brantley MD [address] [place] [phone] PCP - General 10/31/20
[2024-12-24 21:21] VITALS: BP 153/87; PULSE 84; RESP 16; TEMP 36.3; O2SAT 100
[2024-12-24 22:03] VITALS: BP 165/108; PULSE 89; RESP 24; TEMP 36.8; O2SAT 100
[2024-12-24] MEDS: PROCHLORPERAZINE EDISYLATE 10 MG/2 ML VIAL IV PUSH (22:55)
[2024-12-24 23:07] LABS: Hematocrit 42.8 % (37.0-47.0); Hemoglobin 14.7 g/dL (12.0-15.0); Immature Granulocyte Percent A 0.8 % (0-0.5); Lymphocytes Absolute Auto 1.40 K/mm3 (0.9-3.2); Mean Corpuscular HGB Conc 34.3 g/dl (32-36); Mean Corpuscular Hemoglobin 34.3 pg (26-34); Mean Corpuscular Volume 100.0 fl (80-100); Nucleated Red Blood Cells Absolute Auto 0.000 K/mm3 (0.0-0.012); Nucleated Red Blood Cells Perc 0.0 % (0.0-0.2); Platelet Count Result 344 k/mm3 (150-375); Red Blood Count 4.28 M/mm3 (4.2-5.4); White Blood Count 14.6 K/mm3 (4.5-10.0)
--- OUTSIDE RECORDS SUMMARY | 2024-12-24 23:11 | XMS_ITS | Referral Summary ---
Author Organization [facility] Address [address] [place] [address] Care Team Providers Care Watch Repair Person Name Role Phone Iqra Bonds Primary Care Provider [phone] Allergies No known active allergies Medications aspirin [...] on file Legal Sex Female 2:23 AM CUSTOMER TRAINING SPECIALIST Gender Identity Not on file Sexual Orientation Not on file Last Filed Vital Signs Vital Sign Reading Time Taken Comments Blood Pressure 122/78 04/26/2023 3:05 PM CUSTOMER TRAINING SPECIALIST Pulse 84 04/26/2023 3:05 PM CUSTOMER TRAINING SPECIALIST Temperature 36.9 C (98.5 F) 12/16/2022 8:50 PM CDT Respiratory Rate 16 12/16/2022 8:50 PM CDT Oxygen Saturation 98% 04/26/2023 3:05 PM CUSTOMER TRAINING SPECIALIST Inhaled Oxygen Concentration - - Weight 79.9 kg (176 lb 2.4 oz) 04/26/2023 3:05 P M CUSTOMER TRAINING SPECIALIST Height 160 cm (5' 3) 12/16/2022 5:22 PM CDT Body Mass Index 31.2 12/16/2022 5:22 PM CDT Plan of Treatment Not on file Medical Devices Implanted Type Area Duster Tender Device Identifier Shelf Expiration Date Model / Serial / Lot Plate Plate Left: Ankle Insurance [employer] ACCESS CHOICE ANTH ACCESS CHOICE Care Teams Watch Repair Person Relationship Specialty Start Date End Date Iqra Bonds PA [address] [place] [id number] PCP - General Physician Field Education Coordinator 10/09/22
--- OUTSIDE RECORDS SUMMARY | 2024-12-24 23:11 | XMS_ITS | Clinical Summary ---
Author Organization [facility] Address [address] [place] [address] Care Team Providers Care Employment Evaluator/Case Manager Name Role Phone Iqra Bonds Primary Care Provider [phone] Allergies No known active allergies Medications aspirin [...] on file Legal Sex Female 2:23 AM GLOVE BRUSHER Gender Identity Not on file Sexual Orientation Not on file Obstetrics History Last Filed Vital Signs Vital Sign Reading Time Taken Comments Blood Pressure 122/78 04/26/2023 3:05 PM GLOVE BRUSHER Pulse 84 04/26/2023 3:05 PM GLOVE BRUSHER Temperature 36.9 C (98.5 F) 12/16/2022 8:50 PM CDT Respiratory Rate 16 12/16/2022 8:50 PM CDT Oxygen Saturation 98% 04/26/2023 3:05 PM GLOVE BRUSHER Inhaled Oxygen Concentration - - Weight 79.9 kg (176 lb 2.4 oz) 04/26/2023 3:05 P M GLOVE BRUSHER Height 160 cm (5' 3) 12/16/2022 5:22 [...] (#1) 2025 Medical Devices Implanted Type Area Track Laying Equipment Operator Device Identifier Shelf Expiration Date Model / Serial / Lot Plate Plate Left: Ankle Insurance [employer] ANTHEM ACCESS CHOICE ANTHEM ACCESS CHOICE Care Teams Employment Evaluator/Case Manager Relationship Specialty Start Date End Date Iqra Bonds PA [address] [place] [id number] PCP - General Physician Beef Specialist 10/09/22
--- OUTSIDE RECORDS SUMMARY | 2024-12-24 23:11 | XMS_ITS | Clinical Summary ---
Author Organization [facility] [employer] Address [address] [place] [address] Care Team Providers Care Lumber Piler Operator Name Role Phone Teresita Brantley MD Primary Care Provider [phone] Source Comments [facility] [employer],non-owned Affiliates and Associated Physician Practices is amultiple site organization consisting of ambulatory clinics and hospital sitesin [place], [place], [place] and [place]. This disclosure is being madepursuant to the Care Everywhere program and may not contain all information available regarding this patient. Last updated 18.[employer] Allergies No known active allergies Medications * [...] on file Legal Sex Female 6:00 AM HOT STRIP FINISHER Gender Identity Not on file Sexual Orientation Not on file Last Filed Vital Signs Vital Sign Reading Time Taken Comments Blood Pressure 114/80 07/12/2023 8:41 AM HOT STRIP FINISHER Pulse 79 07/12/2023 8:41 AM HOT STRIP FINISHER Temperature - - Respiratory Rate - - Oxygen Saturation 97% 07/12/2023 8:41 AM HOT STRIP FINISHER Inhaled Oxygen Concentration - - Weight 79.4 kg (175 lb) 07/12/2023 8:41 AM HOT STRIP FINISHER Height 160 cm (5' 3) 07/12/2023 8:41 AM HOT STRIP FINISHER Body Mass Index 31 07/12/2023 8:41 AM HOT STRIP FINISHER Plan of Treatment Health Maintenance Due Date [...] to complete this topic Insurance Care Teams Lumber Piler Operator Relationship Specialty Start Date End Date Teresita Brantley MD [address] [place] [address] [phone] PCP - General 10/31/20
--- OUTSIDE RECORDS SUMMARY | 2024-12-24 23:11 | XMS_ITS | Clinical Summary ---
Author Organization [facility] Address [address] [place] [address] Care Team Providers Care Polarity Tester Name Role Phone Unavailable Primary Care Provider [...]
[2024-12-24 23:23] LABS: Alanine Aminotransferase 44 U/L (6-35); Albumin Level 4.5 g/dL (3.5-5.1); Alkaline Phosphatase 84 U/L (38-126); Anion Gap 16 mmol/L (4-12); Aspartate Amino Transferase 36 U/L (14-36); Bilirubin,Total 1.0 mg/dL (0.2-1.3); Blood Urea Nitrogen 11 mg/dL (7-17); Carbon Dioxide 20 mmol/L (22-30); Chloride 101 mmol/L (98-107); Estimated CRCL calculation 78 ml/min; Estimated Glomerular Filt Rate > 60; Lipase 16 U/L (23-300); Potassium 3.5 mmol/L (3.4-5.0); Sodium 137 mmol/L (137-145); Total Protein 7.7 g/dL (6.3-8.2)
--- NOTE | 2024-12-24 23:23 | PC.NURSE ---
Report received from DONI Pollard. Assumed care of patient at this time.
[2024-12-24 23:28] LABS: Calcium 9.2 mg/dL (8.4-10.2); Glucose 158 mg/dL (65-110)
[2024-12-24] MEDS: FAMOTIDINE 20 MG/2 ML VIAL IV PUSH (23:38)
[2024-12-24] MEDS: LACTATED RINGERS 1,000 ML 999 ML IV CONT (23:38)
[2024-12-24] MEDS: ONDANSETRON INJ 4 MG/2 ML VIAL IV PUSH (23:38)
[2024-12-24 23:49] LABS: Add Urine Microscopic? YES; Appearance Urine Cloudy (Clear); Glucose Urine UA Negative (Negative); Leukocyte Esterase Ur Trace LEU/UL (Negative); Nitrate Urine Negative (Negative); Specific Grav Ur 1.040 (1.001-1.035)
--- NOTE | 2024-12-25 00:41 | ED_ITS ---
HPI - Nausea/Vomiting/Diarrhea General Chief complaint: Nausea/Vomiting/Diarrhea Stated complaint: n/v Time Seen by Provider: 12/24/24 22:04 History of Present Illness HPI Narrative: Patient states this morning she started having nausea, vomiting, diarrhea, she has been trying to drink water but cannot keep anything down, she has some cramps from all the throwing up. Unsure if she may have eaten something bad. Related Data Home Medications ?Medication ?Instructions ?Recorded ?Confirmed ?Last Taken ?Type atorvastatin 40 mg tablet 40 mg PO QPM 08/15/24 12/24/24 Unknown History prazosin 2 mg capsule 2 mg PO QPM 08/15/24 12/24/24 Unknown History risperidone 0.5 mg tablet 0.5 mg PO DAILY 08/15/24 12/24/24 Unknown History famotidine 20 mg tablet 20 mg PO DAILY 10/10/24 12/24/24 Unknown History medroxyprogesterone 150 mg/mL 150 mg IM .q 3 months 10/10/24 12/24/24 Unknown History intramuscular suspension naltrexone 50 mg tablet 50 mg PO Q24H 10/10/24 12/24/24 Unknown History venlafaxine 75 mg capsule,extended 75 mg PO QPM 10/10/24 12/24/24 Unknown History release 24 hr Allergies Allergy/AdvReac Type Severity Reaction Status Date / Time No Known Allergies Allergy Verified 12/24/24 21:23 Review of Systems 2 Review of Systems: All systems reviewed & are unremarkable except as noted in HPI and below PMFSH Past Medical History Medical History Hx of migraines Depression Chronic pain syndrome Anxiety Stomach ulcer GERD (gastroesophageal reflux disease) Anxiety Surgical History Surgical History Hx laparoscopic cholecystectomy History of foot surgery left 2020 Family History Family History Father Heart attack Unknown Diabetes mellitus Mother Suicide Other Diabetes mellitus Hypertension Social History Social History Smoking packs per day: 0.75 Smoking cigarettes per day: 15.0 Years smoked: 22 Smoking pack-years: 16.50 Smoking status: Current every day smoker Tobacco type: cigarettes Alcohol intake: current Drinks per week: 1 Substance use: never Substance use type: does not use Living arrangements: with family Occupation/Education: unemployed Gender identity (if verbalized by the patient): Female Spiritual care concerns: No Exam 2 Narrative: EXAMINATION OF ORGAN SYSTEMS/BODY AREAS: Constitutional: Vital signs per nursing GENERAL: Actively retching HEAD: Normal with no signs of head trauma. EYES: EOMI, conjunctiva normal ENT: Hearing grossly intact LUNGS: Nonlabored breathing. HEART: [Regular rate and rhythm] ABD: [Soft], no focal tenderness EXT: Normal range of motion SKIN: [No rashes or lesions.] NEURO: [Alert and oriented x 3. No gross focal sensory or strength deficits.] PSYCH: Normal affect Course Vital Signs Vital signs: Vital Signs Temperature 97.4 F L 12/24/24 21:21 Pulse Rate 84 12/24/24 21:21 Respiratory Rate 16 12/24/24 21:21 Blood Pressure 153/87 H 12/24/24 21:21 Pulse Oximetry 100 12/24/24 21:21 Oxygen Delivery Room Air 12/24/24 21:21 Temperature 98.2 F 12/24/24 22:03 Pulse Rate 89 12/24/24 22:03 Respiratory Rate 24 H 12/24/24 22:03 Blood Pressure 165/108 H 12/24/24 22:03 Pulse Oximetry 100 12/24/24 22:03 Oxygen Delivery Room Air 12/24/24 21:21 MDM - Nausea/Vomiting/Diarrhea MDM Narrative Medical decision making narrative: Patient presents with nausea, vomiting, diarrhea, started this morning, unable to keep anything down. She is actively retching, thankfully no focal tenderness, given antiemetics and on re-evaluation, and states she feels much better, she was able to sleep, she only has a little bit of nausea left. Fluids given an additional medication provided, she feels better and well enough to go, with return precautions and follow-up to her PCP with prescriptions. Lab Data 12/24/24 22:59 12/24/24 22:59 Labs: Lab Results 12/24/24 Range/Units 22:59 WBC 14.6 H (4.5-10.0) K/mm3 RBC 4.28 (4.2-5.4) M/mm3 Hgb 14.7 (12.0-15.0) g/dL Hct 42.8 (37.0-47.0) % MCV 100.0 (80-100) fl MCH 34.3 H (26-34) pg MCHC 34.3 (32-36) g/dl RDW 13.6 (11.5-14.5) % Plt Count 344 (150-375) k/mm3 MPV 8.7 (7.4-10.4) fl Immature Gran % (Auto) 0.8 H (0-0.5) % Neut % (Auto) 86.0 H (45.5-73.1) % Lymph % (Auto) 9.6 L (18.3-44.2) % [place] % (Auto) 3.4 (2.6-8.5) % Eos % (Auto) 0.0 (0-4.4) % Baso % (Auto) 0.2 (0.2-1.2) % Lymph # (Auto) 1.40 (0.9-3.2) K/mm3 [place] # (Auto) 0.5 (0.1-0.6) K/mm3 Eos # (Auto) 0.0 (0-0.3) K/mm3 Baso # (Auto) 0.0 (0.0-0.1) K/mm3 Abs Immat Gran (auto) 0.11 H (0.00-0.031) K/mm3 Absolute Neuts (auto) 12.6 H (1.3-6.7) K/mm3 Absolute Nucleated RBC 0.000 (0.0-0.012) K/mm3 Nucleated RBC % 0.0 (0.0-0.2) % Sodium 137 (137-145) mmol/L Potassium 3.5 (3.4-5.0) mmol/L Chloride 101 (98-107) mmol/L Carbon Dioxide 20 L (22-30) mmol/L Anion Gap 16 H (4-12) mmol/L BUN 11 (7-17) mg/dL Creatinine 0.86 (0.7-1.0) mg/dL Estim Creat Clear Calc 78 ml/min Estimated GFR > 60 (59 - ) Glucose 158 H (65-110) mg/dL Calcium 9.2 (8.4-10.2) mg/dL Total Bilirubin 1.0 (0.2-1.3) mg/dL AST 36 (14-36) U/L ALT 44 H (6-35) U/L Alkaline Phosphatase 84 (38-126) U/L Total Protein 7.7 (6.3-8.2) g/dL Albumin 4.5 (3.5-5.1) g/dL Lipase 16 L (23-300) U/L Urine Color Dark yellow (Yellow) Urine Appearance Cloudy H (Clear) Urine pH 6.5 (5.0-9.0) Ur Specific [place] 1.040 H (1.001-1.035) Urine Protein 2+ H (Negative) mg/dL Urine Glucose (UA) Negative (Negative) mg/dL Urine Ketones 2+ H (Negative) mg/dL Ur Blood (Man) 2+ H (Negative) Urine Nitrate Negative (Negative) Urine Bilirubin Negative (Negative) Urine Urobilinogen 1.0 (<2.0) mg/dL Leukocyte Esterase Rfl Trace H (Negative) RINKU/UL Discharge Plan Discharge Clinical Impression: Nausea, vomiting, and diarrhea Patient Disposition: Home Condition: Stable Instructions: Acute Nausea and Vomiting (ED), Acute Diarrhea (ED), Abdominal Pain (ED) Additional Instructions: Please follow up with your doctor; take the medications prescribed as needed. You can always return for any further issues. Patient Language: Sri [place]an Prescriptions: New famotidine 20 mg tablet 20 mg PO DAILY Qty: 30 0RF dicyclomine 20 mg tablet 20 mg PO TID PRN (Reason: abdominal pain) Qty: 30 0RF ondansetron 4 mg tablet,disintegrating 4 mg PO Q8H PRN (Reason: nausea and vomiting) Qty: 10 0RF No Action famotidine 20 mg tablet 20 mg PO DAILY medroxyprogesterone 150 mg/mL suspension 150 mg IM .q 3 months naltrexone 50 mg tablet 50 mg PO Q24H venlafaxine 75 mg capsule,extended release 24hr 75 mg PO QPM prednisone 20 mg tablet 40 mg PO DAILY 5 Days Qty: 10 0RF atorvastatin 40 mg tablet 40 mg PO QPM risperidone 0.5 mg tablet 0.5 mg PO DAILY prazosin 2 mg capsule 2 mg PO QPM dicyclomine 20 mg tablet 20 mg PO QID PRN (Reason: abdominal pain) Qty: 20 0RF Follow-up/Referrals: Cammie,FLORI Escalona [Primary Care Provider] - 2 Days
[2024-12-25 01:44] VITALS: BP 104/58; PULSE 98; RESP 17; O2SAT 97
== END 2024-12-25 01:46 | disposition home or self-care (01) ==
PROVIDERS: Emergency Provider Emergency Medicine; PCP Physician Assistant
DX: R11.2 Nausea with vomiting, unspecified (principal); R19.7 Diarrhea, unspecified; K21.9 Gastro-esophageal reflux disease without esophagitis; G89.4 Chronic pain syndrome; F32.A Depression, unspecified; F41.9 Anxiety disorder, unspecified; F17.210 Nicotine dependence, cigarettes, uncomplicated; Z90.49 Acquired absence of other specified parts of digestive tract; Z79.899 Other long term (current) drug therapy
CPT/HCPCS: 36415; 80053; 81001; 83690; 85025; 96361; 96374; 96375; 99284; J0780; J1200; J2405; J7120

== ENCOUNTER 2025-01-27 14:58 | Observation (INO) | payer BC, SELFPAY ==
--- NOTE | ~2025-01-27 | CT_ITS ---
EXAMINATION: CT abdomen pelvis w con, 01/27/2025 15:50 CDT HISTORY: Upper abdominal pain COMPARISON: No comparisons available. TECHNIQUE: CT scan of the abdomen and pelvis was performed with contrast. Isovue 300, 92cc injected IV. One or more of the following dose reduction techniques were used: automated exposure control, adjustment of the mA and/or kV according to patient size, use of iterative reconstruction technique. Unless otherwise stated, incidental findings do not require dedicated follow up imaging FINDINGS: CT abdomen: LUNG BASES: The lung bases are clear. The visualized portions of the heart and pericardium are unremarkable. LIVER: Mild hepatic steatosis. SPLEEN: Unremarkable, no splenomegaly. KIDNEYS: Right Kidney: Unremarkable. No calculi. No hydronephrosis. Left Kidney: Unremarkable. No calculi. No hydronephrosis ADRENAL GLANDS: Unremarkable. PANCREAS: Unremarkable. GALLBLADDER/BILIARY: Postcholecystectomy. CBD normal. STOMACH AND ESOPHAGUS: Small hiatal hernia. BOWEL/MESENTERY: There is mild thickening of the entire large bowel but no perforation , abscess or pneumatosis. The appendix is normal. Mesentery normal. No dilated loops of small bowel. ADENOPATHY/RETROPERITONEUM: No lymphadenopathy. AORTA/VASCULATURE: Normal caliber aorta. FREE FLUID OR FREE AIR: No free fluid.. CT pelvis: SOLID ORGANS/REPRODUCTIVE: The uterus is atrophic. No adnexal mass. BLADDER: Within normal limits. OSSEOUS STRUCTURES: Scattered sclerotic probable bone island in the largest in the left femoral head. No lytic lesions. OVERLYING SOFT TISSUES: Unremarkable. IMPRESSION: Colitis detailed above probably infectious. No perforation or abscess Reviewed, dictated and finalized at location A.
[2025-01-27 14:57] VITALS: BP 156/99; PULSE 75; RESP 20; TEMP 36.7; O2SAT 99
--- NOTE | 2025-01-27 15:09 | ED.NAVMDI ---
HPI - Nausea/Vomiting/Diarrhea General Chief complaint: Nausea/Vomiting/Diarrhea Stated complaint: n/v, +ETOH Time Seen by Provider: 01/27/25 14:59 History of Present Illness HPI Narrative: 44 years old white female came from home by ambulance because of nausea, vomiting and upper abdominal pain started few hours prior to arrival. Patient is telling me that she quit drinking alcohol roughly 3 years ago, yesterday relapsed and started drinking at 2:00 p.m. until 10:00 p.m., a lot of vodka. Patient report having similar symptoms in the past secondary to drinking alcohol. She denies any fever or chills or shortness of breath or chest pain or back pain or urinary symptoms. History of depression, anxiety, PTSD, hyperlipidemia and currently on baby aspirin once a day Patient lives with her . Related Data Home Medications ?Medication ?Instructions ?Recorded ?Confirmed ?Last Taken ?Type atorvastatin 40 mg tablet 40 mg PO QPM 08/15/24 12/24/24 Unknown History prazosin 2 mg capsule 2 mg PO QPM 08/15/24 12/24/24 Unknown History risperidone 0.5 mg tablet 0.5 mg PO DAILY 08/15/24 12/24/24 Unknown History famotidine 20 mg tablet 20 mg PO DAILY 10/10/24 12/24/24 Unknown History medroxyprogesterone 150 mg/mL 150 mg IM .q 3 months 10/10/24 12/24/24 Unknown History intramuscular suspension naltrexone 50 mg tablet 50 mg PO Q24H 10/10/24 12/24/24 Unknown History venlafaxine 75 mg capsule,extended 75 mg PO QPM 10/10/24 12/24/24 Unknown History release 24 hr Allergies Allergy/AdvReac Type Severity Reaction Status Date / Time No Known Allergies Allergy Verified 01/27/25 15:04 Review of Systems Review of Systems: All systems reviewed & are unremarkable except as noted in HPI and below PMFSH Past Medical History Medical History Hx of migraines Depression Chronic pain syndrome Anxiety Stomach ulcer GERD (gastroesophageal reflux disease) Anxiety Surgical History Surgical History Hx laparoscopic cholecystectomy History of foot surgery left 2020 Family History Family History Father Heart attack Unknown Diabetes mellitus Mother Suicide Other Diabetes mellitus Hypertension Social History Social History Smoking packs per day: 0.75 Smoking cigarettes per day: 15.0 Years smoked: 22 Smoking pack-years: 16.50 Smoking status: Current every day smoker Tobacco type: cigarettes Alcohol intake: current Drinks per week: 1 Substance use: never Substance use type: does not use Living arrangements: with family Occupation/Education: unemployed Gender identity (if verbalized by the patient): Female Spiritual care concerns: No Exam Narrative: General appearance: Well-developed, well-nourished, restless, dry heaving Skin: Normal color, diaphoretic Head: Normocephalic, nontraumatic Eyes: Clear conjunctiva ENT: Oropharynx normal, ears normal, nose normal Neck: Supple, nontender Chest and respiratory: Airway patent, no respiratory distress, no accessory muscle use Heart: Regular rate/rhythm Abdomen: Soft, epigastric tenderness, no organomegaly, quiet bowel sounds Vascular: Normal peripheral pulses, normal capillary refill. Musculoskeletal: Normal range of motion, nontender back Neurologic: Alert and oriented ?3, DIRECTOR PEDIATRIC is normal as tested, no gross motor deficit Course Vital Signs Vital signs: Vital Signs Temperature 36.7 C 01/27/25 14:57 Pulse Rate 75 01/27/25 14:57 Respiratory Rate 20 01/27/25 14:57 Blood Pressure 156/99 H 01/27/25 14:57 Pulse Oximetry 99 01/27/25 14:57 Oxygen Delivery Room Air 01/27/25 14:57 Temperature 36.7 C 01/27/25 14:57 Pulse Rate 89 01/27/25 17:55 Respiratory Rate 17 01/27/25 17:55 Blood Pressure 155/90 H 01/27/25 17:55 Pulse Oximetry 100 01/27/25 17:55 Oxygen Delivery Room Air 01/27/25 14:57 MDM - Nausea/Vomiting/Diarrhea MDM Narrative Medical decision making narrative: Patient came to the ED from home by ambulance because of lot of vomiting and dry heaving after drinking a lot of at, yesterday. Vital signs are stable Physical examination showing restless patient with epigastric tenderness and dry heaves Differential diagnosis: Acetaldehyde buildup, stomach irritation, gastritis, hangover, dehydration, electrolyte imbalance, ANXIETY LIKE SYMPTOMS BLOOD WORKUP TODAY INCLUDES CBC, CMP, LIPASE, ALCOHOL LEVEL SHOWED WBC 16.2, OTHERWISE WITHIN NORMAL LIMIT URINALYSIS SHOWED NO ACUTE ABNORMALITY URINE DRUG SCREEN POSITIVE FOR CANNABIS CT ABDOMEN AND PELVIS WITH IV CONTRAST SHOWED COLITIS LIKELY INFECTIOUS Patient still feeling nauseated with intermittent vomiting and abdominal pain, Admit to hospitalist Diagnosis intractable vomiting, colitis, cannabis, depression, hangover Differential Diagnosis Differential diagnosis: Likely other (As above) Medical Records Attestation: I reviewed the patient's medical records. Lab Data Attestation: I reviewed the patient's lab results. 01/27/25 15:24 01/27/25 15:24 Labs: Lab Results 01/27/25 01/27/25 01/27/25 Range/Units 15:24 15:33 15:34 WBC 16.2 H (4.5-10.0) K/mm3 RBC 3.99 L (4.2-5.4) M/mm3 Hgb 14.0 (12.0-15.0) g/dL Hct 40.5 (37.0-47.0) % MCV 101.5 H (80-100) fl MCH 35.1 H (26-34) pg MCHC 34.6 (32-36) g/dl RDW 13.0 (11.5-14.5) % Plt Count 291 (150-375) k/mm3 MPV 8.5 (7.4-10.4) fl Immature Gran % (Auto) 1.8 H (0-0.5) % Neut % (Auto) 82.1 H (45.5-73.1) % Lymph % (Auto) 12.4 L (18.3-44.2) % [place] % (Auto) 3.4 (2.6-8.5) % Eos % (Auto) 0.1 (0-4.4) % Baso % (Auto) 0.2 (0.2-1.2) % Lymph # (Auto) 2.01 (0.9-3.2) K/mm3 [place] # (Auto) 0.6 (0.1-0.6) K/mm3 Eos # (Auto) 0.0 (0-0.3) K/mm3 Baso # (Auto) 0.0 (0.0-0.1) K/mm3 Abs Immat Gran (auto) 0.30 H (0.00-0.031) K/mm3 Absolute Neuts (auto) 13.3 H (1.3-6.7) K/mm3 Absolute Nucleated RBC 0.000 (0.0-0.012) K/mm3 Nucleated RBC % 0.0 (0.0-0.2) % Sodium 139 (137-145) mmol/L Potassium 3.8 (3.4-5.0) mmol/L Chloride 108 H (98-107) mmol/L Carbon Dioxide 16 L (22-30) mmol/L Anion Gap 15 H (4-12) mmol/L BUN 12 (7-17) mg/dL Creatinine 0.72 (0.7-1.0) mg/dL Estim Creat Clear Calc 93 ml/min Estimated GFR > 60 (59 - ) Glucose 134 H (65-110) mg/dL Calcium 8.9 (8.4-10.2) mg/dL Total Bilirubin 0.6 (0.2-1.3) mg/dL AST 40 H (14-36) U/L ALT 60 H (6-35) U/L Alkaline Phosphatase 96 (38-126) U/L Total Protein 7.1 (6.3-8.2) g/dL Albumin 4.4 (3.5-5.1) g/dL Lipase 25 (23-300) U/L Urine Color Yellow (Yellow) Urine Appearance Clear (Clear) Urine pH 6.5 (5.0-9.0) Ur Specific [place] 1.029 (1.001-1.035) Urine Protein 1+ H (Negative) mg/dL Urine Glucose (UA) Negative (Negative) mg/dL Urine Ketones 2+ H (Negative) mg/dL Ur Blood (Man) 1+ H (Negative) Urine Nitrate Negative (Negative) Urine Bilirubin Negative (Negative) Urine Urobilinogen 1.0 (<2.0) mg/dL Leukocyte Esterase Rfl Negative (Negative) RINKU/UL Urine RBC 11-20 H (0-2) /hpf Urine WBC 0-5 (0-3) /hpf Ur Squamous Epith Cells Occasional (Few) /hpf Urine Bacteria None seen /hpf Urine Casts 0-2 POC Urine HCG, Qual Negative (Negative) Urine Opiates Screen Negative (Negative) Urine Methadone Screen Negative (Negative) Ur Barbiturates Screen Negative (Negative) Ur Phencyclidine Scrn Negative (Negative) Ur Amphetamine Screen Negative (Negative) U Benzodiazepines Scrn Negative (Negative) Urine Cocaine Screen Negative (Negative) U Cannabinoids Screen Positive A (Negative) Ethyl Alcohol < 10 (<10) mg/dL Imaging Data Radiologist's impression: Impressions Abdomen/Pelvis CT 01/27/25 16:17 IMPRESSION: Colitis detailed above probably infectious. No perforation or abscess Critical Care Time Critical Care Time Critical Care Time: Yes Total Critical Care Time: 30 Discharge Plan Discharge Clinical Impression: Intractable vomiting, Depression, Colitis, Hangover effect, Marijuana abuse Patient Disposition: Still a Patient Condition: Stable Patient Language: [place] Prescriptions: No Action famotidine 20 mg tablet 20 mg PO DAILY medroxyprogesterone 150 mg/mL suspension 150 mg IM .q 3 months naltrexone 50 mg tablet 50 mg PO Q24H venlafaxine 75 mg capsule,extended release 24hr 75 mg PO QPM prednisone 20 mg tablet 40 mg PO DAILY 5 Days Qty: 10 0RF atorvastatin 40 mg tablet 40 mg PO QPM risperidone 0.5 mg tablet 0.5 mg PO DAILY prazosin 2 mg capsule 2 mg PO QPM dicyclomine 20 mg tablet 20 mg PO QID PRN (Reason: abdominal pain) Qty: 20 0RF famotidine 20 mg tablet 20 mg PO DAILY Qty: 30 0RF dicyclomine 20 mg tablet 20 mg PO TID PRN (Reason: abdominal pain) Qty: 30 0RF ondansetron 4 mg tablet,disintegrating 4 mg PO Q8H PRN (Reason: nausea and vomiting) Qty: 10 0RF Follow-up/Referrals: Cammie,FLORI Escalona [Primary Care Provider, Unknown]
[2025-01-27 15:32] LABS: Hematocrit 40.5 % (37.0-47.0); Hemoglobin 14.0 g/dL (12.0-15.0); Immature Granulocyte Percent A 1.8 % (0-0.5); Lymphocytes Absolute Auto 2.01 K/mm3 (0.9-3.2); Mean Corpuscular HGB Conc 34.6 g/dl (32-36); Mean Corpuscular Hemoglobin 35.1 pg (26-34); Mean Corpuscular Volume 101.5 fl (80-100); Nucleated Red Blood Cells Absolute Auto 0.000 K/mm3 (0.0-0.012); Nucleated Red Blood Cells Perc 0.0 % (0.0-0.2); Platelet Count Result 291 k/mm3 (150-375); Red Blood Count 3.99 M/mm3 (4.2-5.4); White Blood Count 16.2 K/mm3 (4.5-10.0)
[2025-01-27] MEDS: METOCLOPRAMIDE HCL INJ 10 MG/2 ML VIAL IV PUSH (15:35)
[2025-01-27] MEDS: SODIUM CHLORIDE 0.9% IV 2,000 ML 999 ML IV CONT (15:35)
[2025-01-27 15:36] LABS: BEDSIDEPREGUCG Negative (Negative)
[2025-01-27] MEDS: diazePAM INJ (*CRX) 10 MG/2 ML SYRINGE 5 MG IV PUSH ×2 (15:36→16:53)
[2025-01-27 15:45] LABS: Alanine Aminotransferase 60 U/L (6-35); Albumin Level 4.4 g/dL (3.5-5.1); Alkaline Phosphatase 96 U/L (38-126); Anion Gap 15 mmol/L (4-12); Aspartate Amino Transferase 40 U/L (14-36); Bilirubin,Total 0.6 mg/dL (0.2-1.3); Blood Urea Nitrogen 12 mg/dL (7-17); Calcium 8.9 mg/dL (8.4-10.2); Carbon Dioxide 16 mmol/L (22-30); Chloride 108 mmol/L (98-107); Estimated CRCL calculation 93 ml/min; Estimated Glomerular Filt Rate > 60; Glucose 134 mg/dL (65-110); Lipase 25 U/L (23-300); Potassium 3.8 mmol/L (3.4-5.0); Sodium 139 mmol/L (137-145); Total Protein 7.1 g/dL (6.3-8.2)
[2025-01-27 15:47] LABS: Add Urine Microscopic? YES; Appearance Urine Clear (Clear); Glucose Urine UA Negative (Negative); Leukocyte Esterase Ur Negative LEU/UL (Negative); Nitrate Urine Negative (Negative); Non Pathogenic Casts 0-2; Specific Grav Ur 1.029 (1.001-1.035)
[2025-01-27 16:06] LABS: Cannabinoid Screen Urine Positive (Negative)
[2025-01-27 16:47] VITALS: BP 150/94; PULSE 60; RESP 19; O2SAT 99
[2025-01-27 17:55] VITALS: BP 155/90; PULSE 89; RESP 17; O2SAT 100
[2025-01-27] MEDS: MORPHINE SULFATE (*CRX) 4 MG/ML INJ IV PUSH (18:31)
[2025-01-27] MEDS: ONDANSETRON INJ 4 MG/2 ML VIAL IV PUSH (18:31)
[2025-01-27 18:34] VITALS: PULSE 91; RESP 15; O2SAT 97
--- NOTE | 2025-01-27 19:00 | ADMGEN ---
This patient, Sterling Tillman, was admitted to 3 [facility] Surg Room 320-01. Patient/family oriented to hospital policies and general routines including ID bracelet, bed and alarms, visiting hours, pain management, procedures, bathroom and other care routines, personal items, smoking policy, room service/diet, and visiting hours. Information on how to activate the Rapid Response Team has been discussed. Patient/Family are encouraged to report perceived risks to care and to ask questions if they do not understand what they are told or what they should do.
[2025-01-27] MEDS: SODIUM CHLORIDE 0.9% IV 1,000 ML 150 ML IV CONT (19:03)
[2025-01-27] MEDS: PIPERACILLIN/TAZOBACTAM SOD 3.375 GM in SODIUM CHLORIDE 0.9% IV 50 ML 100 ML IVPB (19:04)
[2025-01-27 20:00] VITALS: PULSE 95
[2025-01-27] MEDS: SUCRALFATE SUSP 100 MG/ML 10 ML UDC 1000 MG PO (20:48)
[2025-01-27] MEDS: VENLAFAXINE HCL XR 75 MG CAP.ER.24H PO (20:48)
[2025-01-27] MEDS: IBUPROFEN 600 MG TABLET PO (20:48)
[2025-01-27] MEDS: LORazepam (*CRX) 1 MG TABLET 2 MG PO (20:49)
[2025-01-27] MEDS: PANTOPRAZOLE SODIUM IV 40 MG VIAL IV PUSH (20:49)
[2025-01-27] MEDS: PRAZOSIN HCL 1 MG CAPSULE 2 MG PO (20:59)
[2025-01-27] MEDS: ATORVASTATIN 40 MG TABLET PO (21:00)
[2025-01-27] MEDS: QUEtiapine FUMARATE XR 50 MG TAB.ER.24H PO (21:00)
[2025-01-27 21:13] VITALS: BP 149/86; PULSE 98; RESP 14; TEMP 36.8; O2SAT 98
[2025-01-27 21:14] VITALS: BMI 36.3
--- NOTE | 2025-01-27 21:23 | P.HP_ITS ---
H&P: HPI History of Present Illness Date/Time: 01/27/25 21:23 Chief Complaint: Intractable vomiting Narrative: 44-year-old female patient with past medical history of PTSD, alcohol abuse over 3 years, depression anxiety presents the hospital after alcoholic binge with intractable vomiting. She has generalized complaints of malaise, headache. She states that her provider switched her anti depression medications on and has not started on her new medications. She states that she was feeling off and decided to have a drink. That turned into her drinks 5th of vodka. Patient also states that she was unable to take her Effexor this morning. Review of Systems Review of Systems: 12 systems were reviewed and are negativ e except for as per HPI. [facility] Past Medical History Medical History Hx of migraines Depression Chronic pain syndrome Anxiety Stomach ulcer GERD (gastroesophageal reflux disease) Anxiety Surgical History Surgical History Hx laparoscopic cholecystectomy History of foot surgery left 2020 Family History Family History Father Heart attack Unknown Diabetes mellitus Mother Suicide Other Diabetes mellitus Hypertension Social History Social History Smoking packs per day: 0.75 Smoking cigarettes per day: 15.0 Years smoked: 22 Smoking pack-years: 16.50 Smoking status: Current every day smoker Tobacco type: cigarettes Second hand tobacco smoke exposure: No Alcohol intake: current Drinks per week: 1 Substance use: never Substance use type: does not use Lack of Transportation: No Lack of Food: Never True Current Housing: I Have Housing Concerned About Future Housing: No Difficulty Paying Gas/Electric Bills: No Difficulty Paying for Meds: No Currently Unemployed: No Education: High School Diploma/GED Difficulty w/ Childcare or Family Care: No Living arrangements: with family Occupation/Education: unemployed Gender identity (if verbalized by the patient): Female Spiritual care concerns: No Meds Home Medications and Allergies Home Medications ?Medication ?Instructions ?Recorded ?Confirmed ?Type atorvastatin 40 mg tablet 40 mg PO QPM 08/15/24 History prazosin 2 mg capsule 2 mg PO QPM 08/15/24 5 History dicyclomine 20 mg tablet 20 mg PO QID PRN abdominal p ain 08/30/24 01/27/25 Rx #20 tabs famotidine 20 mg tablet 20 mg PO DAILY 10/10/24 08/ History venlafaxine 75 mg capsule,extended 75 mg PO QPM 01/27/25 History release 24 hr quetiapine 150 mg tablet,extended 150 mg PO HS 5 01/27/25 History release 24 hr quetiapine 50 mg tablet,extended 50 mg PO HS 01/27/25 01/27/25 History release 24 hr Allergies Allergy/AdvReac Type Severity Reaction Status Date / Time No Known Allergies Allergy Verified 01/27/25 15:04 Vital Signs Vital Signs - 24 hr 01/27/25 14:57 01/27/25 16:47 01/27/25 17:55 Temperature 98.0 F Pulse Rate 75 60 89 Respiratory Rate 20 19 17 Blood Pressure 156/99 H 150/94 H 155/90 H Pulse Oximetry 99 99 100 Oxygen Delivery Room Air 01/27/25 18:34 01/27/25 21:13 01/27/25 21:14 Temperature 98.2 F Pulse Rate 91 98 Respiratory Rate 15 14 Blood Pressure 149/86 H Pulse Oximetry 97 98 Oxygen Delivery Room Air Exam Narrative: General: Ill-appearing no acute distress HEENT: normocephalic, atraumatic. Mucous membranes moist. EOMI, PERRLA, bilateral sclera anicteric, no conjunctival injection. Neck supple without JVD, lymphadenopathy, or bruit. Respiratory: clear to ascultation bilaterally. No rales/rhonic/wheezes. Cardiovascular: Regular rate and rhythm, normal S1-S2 upon ascultation. No murmurs, rubs, or clicks. PMI is nondisplaced, capillary refill less than 3 second. Abdomen: Soft, round, no pulsatile masses, nondistended and nontender. No rebound, no guarding. No CVA tenderness, no hepatosplenomegaly. Bowel sounds present to all four quadrants. No high pitch or tinkling sounds, resonant to percussion. Extremities: No cyanosis, clubbing, or edema present. Pulses are palpable 2/2. Active ROM to all four extremities. Neuro: Alert and orientated x 4. PERRLA. Cranial nerves 2-12 intact without focal deficit. Skin: Warm, dry, and intact, without rash, erythema, or lesion. Psych: pleasant, cooperative, normal speech, normal affect, no hallucinations, no dysarthia H&P: Results Labs Labs: Short CBC 01/27/25 Range/Units 15:24 WBC 16.2 H (4.5-10.0) K/mm3 Hgb 14.0 (12.0-15.0) g/dL Hct 40.5 (37.0-47.0) % Plt Count 291 (150-375) k/mm3 BMP 01/27/25 15:24 Sodium 139 Potassium 3.8 Chloride 108 H Carbon Dioxide 16 L BUN 12 Creatinine 0.72 Glucose 134 H Calcium 8.9 Liver Function 01/27/25 Range/Units 15:24 Total Bilirubin 0.6 (0.2-1.3) mg/dL AST 40 H (14-36) U/L ALT 60 H (6-35) U/L Alkaline Phosphatase 96 (38-126) U/L Albumin 4.4 (3.5-5.1) g/dL Urine 01/27/25 Range/Units 15:33 Urine Color Yellow (Yellow) Urine Appearance Clear (Clear) Urine pH 6.5 (5.0-9.0) Ur Specific [place] 1.029 (1.001-1.035) Urine Protein 1+ H (Negative) mg/dL Urine Glucose (UA) Negative (Negative) mg/dL Assessment and Plan Assessment and plan (1) Alcohol abuse: Code(s): F10.10 - Alcohol abuse, uncomplicated Status: Acute Assessment and Plan: [facility] protocol Banana bag, Ativan, thiamine (2) Intractable vomiting: Code(s): R11.10 - Vomiting, unspecified Status: Acute Assessment and Plan: Zofran and Reglan IVF (3) Depression: Code(s): F32.A - Depression, unspecified Status: Acute Assessment and Plan: Start Seroquel Continue Minipress (4) Medication withdrawal: Code(s): F19.939 - Other psychoactive substance use, unspecified with withdrawal, unspecified Status: Acute Assessment and Plan: Restart Effexor Quality VTE Prophylaxis VTE prophylaxis: mechanical ordered If No VTE Prophylaxis Answer both mechanical and pharmacologic: Reason no pharmacologic proph: low risk/not indicated Hospitalist MIPS Advance Care Plan I have confirmed that the patient's Advanced Care Plan is present, code status is documented, or surrogate decision maker is listed in patient medical record.: Yes Medication Reconciliation I have utilized all available resources to obtain, update and review the patient s current medications (includes all prescriptions, OTC, herbals, cannabis, and nutritional supplements).: Yes
[2025-01-27] MEDS: THIAMINE HCL INJ 100 MG, FOLIC ACID INJ 1 MG, MAGNESIUM SULFATE INJ 1 GM, MULTIVITAMINS... 250 MG IV CONT (21:45)
[2025-01-28] MEDS: PIPERACILLIN/TAZOBACTAM SOD 3.375 GM in SODIUM CHLORIDE 0.9% IV 50 ML 100 ML IVPB ×5 (00:54→23:20)
--- NOTE | 2025-01-28 01:51 | ADMGEN ---
This patient, Sterling Tillman, was admitted to [facility] Surg Room 320-01. Patient/family oriented to hospital policies and general routines including ID bracelet, bed and alarms, visiting hours, pain management, procedures, bathroom and other care routines, personal items, smoking policy, room service/diet, and visiting hours. Information on how to activate the Rapid Response Team has been discussed. Patient/Family are encouraged to report perceived risks to care and to ask questions if they do not understand what they are told or what they should do.
[2025-01-28] MEDS: SUCRALFATE SUSP 100 MG/ML 10 ML UDC 1000 MG PO ×4 (05:31→21:32)
[2025-01-28 05:45] LABS: Hematocrit 34.0 % (37.0-47.0); Hemoglobin 11.4 g/dL (12.0-15.0); Immature Granulocyte Percent A 0.9 % (0-0.5); Lymphocytes Absolute Auto 2.58 K/mm3 (0.9-3.2); Mean Corpuscular HGB Conc 33.5 g/dl (32-36); Mean Corpuscular Hemoglobin 34.8 pg (26-34); Mean Corpuscular Volume 103.7 fl (80-100); Nucleated Red Blood Cells Absolute Auto 0.000 K/mm3 (0.0-0.012); Nucleated Red Blood Cells Perc 0.0 % (0.0-0.2); Platelet Count Result 217 k/mm3 (150-375); Red Blood Count 3.28 M/mm3 (4.2-5.4); White Blood Count 11.5 K/mm3 (4.5-10.0)
[2025-01-28 05:46] VITALS: BP 103/72; PULSE 93; RESP 16; TEMP 36.7; O2SAT 96
[2025-01-28 06:12] LABS: Anion Gap 7 mmol/L (4-12); Blood Urea Nitrogen 9 mg/dL (7-17); Calcium 7.7 mg/dL (8.4-10.2); Carbon Dioxide 19 mmol/L (22-30); Chloride 110 mmol/L (98-107); Estimated CRCL calculation 90 ml/min; Estimated Glomerular Filt Rate > 60; Glucose 102 mg/dL (65-110); Potassium 3.5 mmol/L (3.4-5.0); Sodium 136 mmol/L (137-145)
--- NOTE | 2025-01-28 07:27 | P.PNIM_ITS ---
Progress Note: A&P Assessment and Plan (1) Alcohol abuse: Code(s): F10.10 - Alcohol abuse, uncomplicated Status: Acute Assessment and Plan: [facility] protocol Banana bag, Ativan, thiamine stable, did not require any iv ativan continue to monitor ciwa protocol (2) Intractable vomiting: Code(s): R11.10 - Vomiting, unspecified Status: Acute Assessment and Plan: Zofran and Reglan IVF improved (3) Depression: Code(s): F32.A - Depression, unspecified Status: Acute Assessment and Plan: Start Seroquel Continue Minipress (4) Medication withdrawal: Code(s): F19.939 - Other psychoactive substance use, unspecified with withdrawal, unspecified Status: Acute Assessment and Plan: Restart Effexor (5) Marijuana abuse: Code(s): F12.10 - Cannabis abuse, uncomplicated Status: Acute Assessment and Plan: counselled on decreasing use and stopping (6) Colitis: Code(s): K52.9 - Noninfective gastroenteritis and colitis, unspecified Status: Acute Assessment and Plan: started zosyn in ED- will continue IV Time Spent With Patient Time with patient: 25 - 35 minutes Subjective Date/time seen: 01/28/25 07:27 Interval history: 44-year-old female patient with past medical history of PTSD, alcohol abuse over 3 years, depression anxiety presents the hospital after alcoholic binge with intractable vomiting. She has generalized complaints of malaise, headache. She states that her provider switched her anti depression medications on and has not started on her new medications. She states that she was feeling off and decided to have a drink. That turned into her drinks 5th of vodka. Patient also states that she was unable to take her Effexor this morning. IN ed: wbc 16.2, ua unremarkable, UDS positive for cannabis. Abdomen/Pelvis CT 01/27/25 16:17 IMPRESSION: Colitis detailed above probably infectious. No perforation or abscess. 01/28- pt is seem and examined. She is resting in bed, reports feeling weak, still has some diarrhea, able to eat and drink ok. Pt reports some tremors (but none observed during an exam). Review of Systems Review of Systems: 12 systems were reviewed and are negativ e except for as per HPI. All systems reviewed & are unremarkable except as noted in HPI and below Exam Narrative: General: resting in bed HEENT: normocephalic, atraumatic. Mucous membranes moist. EOMI, PERRLA, bilateral sclera anicteric, no conjunctival injection. Neck supple without JVD, lymphadenopathy, or bruit. Respiratory: clear to ascultation bilaterally. No rales/rhonic/wheezes. Cardiovascular: Regular rate and rhythm, normal S1-S2 upon ascultation. No murmurs, rubs, or clicks. PMI is nondisplaced, capillary refill less than 3 second. Abdomen: Soft, round, no pulsatile masses, nondistended and nontender. No rebound, no guarding. No CVA tenderness, no hepatosplenomegaly. Bowel sounds present to all four quadrants. No high pitch or tinkling sounds, resonant to percussion. Extremities: No cyanosis, clubbing, or edema present. Pulses are palpable 2/2. Active ROM to all four extremities. Neuro: Alert and orientated x 4. PERRLA. Cranial nerves 2-12 intact without focal deficit. Skin: Warm, dry, and intact, without rash, erythema, or lesion. Psych: pleasant, cooperative, normal speech, normal affect, no hallucinations Const: General: comfortable Objective Data Vital Signs Vital Signs: Vital Signs - 24 hr 01/27/25 14:57 01/27/25 16:47 01/27/25 17:55 Temperature 98.0 F Pulse Rate 75 60 89 Pulse Rate [Bilateral Radial Palpation] Respiratory Rate 20 19 17 Blood Pressure 156/99 H 150/94 H 155/90 H Pulse Oximetry 99 99 100 Oxygen Delivery Room Air 01/27/25 18:34 01/27/25 20:00 01/27/25 21:13 Temperature 98.2 F Pulse Rate 91 98 Pulse Rate [Bilateral Radial Palpation] 95 Respiratory Rate 15 14 Blood Pressure 149/86 H Pulse Oximetry 97 98 Oxygen Delivery 01/27/25 21:14 01/28/25 05:46 Temperature 98.1 F Pulse Rate 93 Pulse Rate [Bilateral Radial Palpation] Respiratory Rate 16 Blood Pressure 103/72 Pulse Oximetry 96 Oxygen Delivery Room Air Intake/Output Intake/Output: Intake & Output 01/25/25 01/26/25 01/27/25 01/28/25 23:59 23:59 23:59 23:59 Intake Total 1999 1454.2 Balance 1999 1454.2 Meds/Results Medications: Active Medications Generic Name Dose Route Start Last Admin Trade Name Freq PRN Reason Stop Dose Admin Atorvastatin Calcium 40 mg 01/27/25 20:55 01/27/25 21:00 Atorvastatin 40 Mg Tablet PO 40 mg QPM BINH Administration Dicyclomine HCl 20 mg 01/27/25 20:49 Dicyclomine Hcl 10 Mg Capsule PO QID PRN abdominal pain Folic Acid 1 mg 01/28/25 09:00 Folic Acid 1 Mg Tablet PO DAILY BINH Sodium Chloride 1,000 mls @ 150 mls/hr 01/27/25 18:10 01/27/25 19:03 Normal Saline Iv IV CONT 150 mls/hr .Q6H40M [facility] Administration Piperacillin Sod/Tazobactam 50 mls @ 100 mls/hr 01/28/25 00:00 01/28/25 06:02 Sod 3.375 gm/ Sodium Chloride IVPB Infused Q6H [facility] Infusion Ibuprofen 600 mg 01/27/25 19:55 01/27/25 20:48 Ibuprofen 600 Mg Tablet PO 600 mg Q6H PRN Administration Headache Lorazepam 2 mg 01/27/25 19:29 01/27/25 20:49 Lorazepam (*Crx) 1 Mg Tablet PO 2 mg Q4HR PRN Administration Alcohol Withdrawal Multivitamins/Calcium 1 tablet 01/28/25 09:00 Therapeutic Multivitamins/Minerals Tab (*Bkc) PO DAILY B[facility] Nicotine 1 patch 01/27/25 22:50 01/28/25 01:31 Nicotine (*Pbkc) 21 Mg Patch TRANSDERM Not Given DAILY [facility] Ondansetron HCl 4 mg 01/27/25 18:08 Ondansetron Inj 4 Mg/2 Ml Vial IV PUSH Q4H PRN Nausea Pantoprazole Sodium 40 mg 01/27/25 21:00 01/27/25 20:49 Pantoprazole Sodium Iv 40 Mg Vial IV PUSH 40 mg Q12HR [facility] Administration Prazosin HCl 2 mg 01/27/25 20:55 01/27/25 20:59 Prazosin Hcl 1 Mg Capsule PO 2 mg QPM BIN[facility] Administration Promethazine HCl 12.5 mg 01/27/25 18:54 Promethazine Hcl 25 Mg/Ml Ampul IV PUSH Q4H PRN Nausea And Vomiting Quetiapine Fumarate 50 mg 01/27/25 21:00 01/27/25 21:00 Quetiapine Fumarate Xr 50 Mg Tab.Er.24h PO 50 mg HS BIN[facility] Administration Sucralfate 1,000 mg 01/27/25 21:00 01/28/25 05:31 Sucralfate Susp 100 Mg/Ml 10 Ml Udc PO 1,000 mg ACHS B[facility] Administration Thiamine HCl 100 mg 01/28/25 09:00 Thiamine Hcl 100 Mg Tablet PO DAILY [facility] Venlafaxine HCl 75 mg 01/27/25 19:40 01/27/25 20:48 Venlafaxine Hcl Xr 75 Mg Cap.Er.24h PO 75 mg QPM BIN[facility] Administration Radiology Results: ITS Impressions Abdomen/Pelvis CT 01/27/25 16:17 IMPRESSION: Colitis detailed above probably infectious. No perforation or abscess Labs Labs: Laboratory Results - last 24 hr 01/27/25 01/27/25 01/27/25 15:24 15:33 15:34 WBC 16.2 H RBC 3.99 L Hgb 14.0 Hct 40.5 MCV 101.5 H MCH 35.1 H MCHC 34.6 RDW 13.0 Plt Count 291 MPV 8.5 Immature Gran % (Auto) 1.8 H Neut % (Auto) 82.1 H Lymph % (Auto) 12.4 L [place] % (Auto) 3.4 Eos % (Auto) 0.1 Baso % (Auto) 0.2 Lymph # (Auto) 2.01 [place] # (Auto) 0.6 Eos # (Auto) 0.0 Baso # (Auto) 0.0 Abs Immat Gran (auto) 0.30 H Absolute Neuts (auto) 13.3 H Absolute Nucleated RBC 0.000 Nucleated RBC % 0.0 Sodium 139 Potassium 3.8 Chloride 108 H Carbon Dioxide 16 L Anion Gap 15 H BUN 12 Creatinine 0.72 Estim Creat Clear Calc 93 Estimated GFR > 60 Glucose 134 H Calcium 8.9 Total Bilirubin 0.6 AST 40 H ALT 60 H Alkaline Phosphatase 96 Total Protein 7.1 Albumin 4.4 Lipase 25 Urine Color Yellow Urine Appearance Clear Urine pH 6.5 Ur Specific [place] 1.029 Urine Protein 1+ H Urine Glucose (UA) Negative Urine Ketones 2+ H Ur Blood (Man) 1+ H Urine Nitrate Negative Urine Bilirubin Negative Urine Urobilinogen 1.0 Leukocyte Esterase Rfl Negative Urine RBC 11-20 H Urine WBC 0-5 Ur Squamous Epith Cells Occasional Urine Bacteria None seen Urine Casts 0-2 POC Urine HCG, Qual Negative Urine Opiates Screen Negative Urine Methadone Screen Negative Ur Barbiturates Screen Negative Ur Phencyclidine Scrn Negative Ur Amphetamine Screen Negative U Benzodiazepines Scrn Negative Urine Cocaine Screen Negative U Cannabinoids Screen Positive A Ethyl Alcohol < 10 01/28/25 05:37 WBC 11.5 H RBC 3.28 L Hgb 11.4 L Hct 34.0 L MCV 103.7 H MCH 34.8 H MCHC 33.5 RDW 13.2 Plt Count 217 MPV 8.3 Immature Gran % (Auto) 0.9 H Neut % (Auto) 68.9 Lymph % (Auto) 22.4 [place] % (Auto) 7.3 Eos % (Auto) 0.2 Baso % (Auto) 0.3 Lymph # (Auto) 2.58 [place] # (Auto) 0.8 H Eos # (Auto) 0.0 Baso # (Auto) 0.0 Abs Immat Gran (auto) 0.10 H Absolute Neuts (auto) 7.9 H Absolute Nucleated RBC 0.000 Nucleated RBC % 0.0 Sodium 136 L Potassium 3.5 Chloride 110 H Carbon Dioxide 19 L Anion Gap 7 BUN 9 Creatinine 0.76 Estim Creat Clear Calc 90 Estimated GFR > 60 Glucose 102 Calcium 7.7 L Total Bilirubin AST ALT Alkaline Phosphatase Total Protein Albumin Lipase Urine Color Urine Appearance Urine pH Ur Specific [place] Urine Protein Urine Glucose (UA) Urine Ketones Ur Blood (Man) Urine Nitrate Urine Bilirubin Urine Urobilinogen Leukocyte Esterase Rfl Urine RBC Urine WBC Ur Squamous Epith Cells Urine Bacteria Urine Casts POC Urine HCG, Qual Urine Opiates Screen Urine Methadone Screen Ur Barbiturates Screen Ur Phencyclidine Scrn Ur Amphetamine Screen U Benzodiazepines Scrn Urine Cocaine Screen U Cannabinoids Screen Ethyl Alcohol Quality VTE Prophylaxis VTE prophylaxis: mechanical ordered
[2025-01-28] MEDS: THIAMINE HCL 100 MG TABLET PO (08:28)
[2025-01-28] MEDS: THERAPEUTIC MULTIVITAMINS/MINERALS TAB (*BKC) 1 TABLET PO (08:28)
[2025-01-28] MEDS: NICOTINE (*PBKC) 21 MG PATCH 1 PATCH TRANSDERM (08:28)
[2025-01-28] MEDS: FOLIC ACID 1 MG TABLET PO (08:28)
[2025-01-28] MEDS: PANTOPRAZOLE SODIUM IV 40 MG VIAL IV PUSH ×2 (08:29→21:32)
[2025-01-28 08:55] VITALS: O2SAT 96
[2025-01-28] MEDS: SODIUM CHLORIDE 0.9% IV 1,000 ML 150 ML IV CONT ×2 (10:15→21:30)
[2025-01-28 12:43] LABS: Toxigenic C. Diff NEGATIVE (NEGATIVE)
[2025-01-28 14:00] VITALS: BP 124/74; PULSE 89; RESP 18; TEMP 36.6; O2SAT 98
[2025-01-28] MEDS: VENLAFAXINE HCL XR 75 MG CAP.ER.24H PO (17:14)
[2025-01-28] MEDS: PRAZOSIN HCL 1 MG CAPSULE 2 MG PO (17:14)
[2025-01-28] MEDS: ATORVASTATIN 40 MG TABLET PO (17:14)
[2025-01-28] MEDS: IBUPROFEN 600 MG TABLET PO (18:42)
[2025-01-28 21:25] VITALS: BP 122/75; PULSE 86; RESP 16; TEMP 36; O2SAT 92
[2025-01-28] MEDS: QUEtiapine FUMARATE XR 50 MG TAB.ER.24H PO (21:32)
[2025-01-29 04:54] VITALS: BP 133/89; PULSE 74; RESP 14; TEMP 36.4; O2SAT 96
[2025-01-29] MEDS: SUCRALFATE SUSP 100 MG/ML 10 ML UDC 1000 MG PO ×4 (05:24→20:26)
[2025-01-29] MEDS: PIPERACILLIN/TAZOBACTAM SOD 3.375 GM in SODIUM CHLORIDE 0.9% IV 50 ML 100 ML IVPB ×4 (05:25→23:48)
[2025-01-29 05:41] LABS: Hematocrit 32.4 % (37.0-47.0); Hemoglobin 10.7 g/dL (12.0-15.0); Mean Corpuscular HGB Conc 33.0 g/dl (32-36); Mean Corpuscular Hemoglobin 34.6 pg (26-34); Mean Corpuscular Volume 104.9 fl (80-100); Platelet Count Result 152 k/mm3 (150-375); Red Blood Count 3.09 M/mm3 (4.2-5.4); White Blood Count 6.6 K/mm3 (4.5-10.0)
[2025-01-29] MEDS: SODIUM CHLORIDE 0.9% IV 1,000 ML 150 ML IV CONT (06:08)
[2025-01-29 06:10] LABS: Alanine Aminotransferase 21 U/L (6-35); Albumin Level 3.0 g/dL (3.5-5.1); Alkaline Phosphatase 58 U/L (38-126); Anion Gap 5 mmol/L (4-12); Aspartate Amino Transferase 20 U/L (14-36); Bilirubin,Total 0.5 mg/dL (0.2-1.3); Blood Urea Nitrogen 6 mg/dL (7-17); Calcium 7.2 mg/dL (8.4-10.2); Carbon Dioxide 20 mmol/L (22-30); Chloride 113 mmol/L (98-107); Estimated CRCL calculation 76 ml/min; Estimated Glomerular Filt Rate > 60; Glucose 97 mg/dL (65-110); Potassium 3.1 mmol/L (3.4-5.0); Sodium 138 mmol/L (137-145); Total Protein 5.2 g/dL (6.3-8.2)
[2025-01-29] MEDS: THIAMINE HCL 100 MG TABLET PO (08:54)
[2025-01-29] MEDS: FOLIC ACID 1 MG TABLET PO (08:54)
[2025-01-29] MEDS: THERAPEUTIC MULTIVITAMINS/MINERALS TAB (*BKC) 1 TABLET PO (08:54)
[2025-01-29 08:56] VITALS: BP 145/90; PULSE 77
[2025-01-29] MEDS: PANTOPRAZOLE SODIUM IV 40 MG VIAL IV PUSH ×2 (08:56→20:26)
[2025-01-29] MEDS: NICOTINE (*PBKC) 21 MG PATCH 1 PATCH TRANSDERM (08:56)
[2025-01-29] MEDS: LORazepam (*CRX) 1 MG TABLET 2 MG PO (09:16)
--- NOTE | 2025-01-29 12:33 | P.PNIM_ITS ---
Progress Note: A&P Assessment and Plan (1) Alcohol abuse: Code(s): F10.10 - Alcohol abuse, uncomplicated Status: Acute Assessment and Plan: [facility] protocol Banana bag, Ativan, thiamine stable, did not require any iv ativan continue to monitor ciwa protocol 1 dose of atuvan this morning -feeling a lot better now (2) Intractable vomiting: Code(s): R11.10 - Vomiting, unspecified Status: Acute Assessment and Plan: Zofran and Reglan IVF improved (3) Depression: Code(s): F32.A - Depression, unspecified Status: Acute Assessment and Plan: Start Seroquel Continue Minipress (4) Medication withdrawal: Code(s): F19.939 - Other psychoactive substance use, unspecified with withdrawal, unspecified Status: Acute Assessment and Plan: Restart Effexor (5) Marijuana abuse: Code(s): F12.10 - Cannabis abuse, uncomplicated Status: Acute Assessment and Plan: counselled on decreasing use and stopping (6) Colitis: Code(s): K52.9 - Noninfective gastroenteritis and colitis, unspecified Status: Acute Assessment and Plan: started zosyn in ED- will continue IV will downgrade to po tomorrow Plan will need to start taking naltrexone once discharged. knows to avoid narcotic pain meds while taking this medication has resources available for alcohol cessation programs Time Spent With Patient Time with patient: 25 - 35 minutes Subjective Date/time seen: 01/29/25 12:33 Interval history: 44-year-old female patient with past medical history of PTSD, alcohol abuse over 3 years, depression anxiety presents the hospital after alcoholic binge with intractable vomiting. She has generalized complaints of malaise, headache. She states that her provider switched her anti depression medications on and has not started on her new medications. She states that she was feeling off and decided to have a drink. That turned into her drinks 5th of vodka. Patient also states that she was unable to take her Effexor this morning. IN ed: wbc 16.2, ua unremarkable, UDS positive for cannabis. Abdomen/Pelvis CT 01/27/25 16:17 IMPRESSION: Colitis detailed above probably infectious. No perforation or abscess. 01/28- pt is seem and examined. She is resting in bed, reports feeling weak, still has some diarrhea, able to eat and drink ok. Pt reports some tremors (but none observed during an exam). 01/29- pt is seen and examined. She is overall better but still diarrhea. at a bedside-reports that pt is undergoing eval for diarrhea. Pt required 1 dose of ativan as she was anxious. She has a script for Naltrexone that she was given per her PCP but she has not started taking it yet. Review of Systems Review of Systems: 12 systems were reviewed and are negativ e except for as per HPI. All systems reviewed & are unremarkable except as noted in HPI and below Exam Narrative: General: resting in bed HEENT: normocephalic, atraumatic. Mucous membranes moist. EOMI, PERRLA, bilateral sclera anicteric, no conjunctival injection. Neck supple without JVD, lymphadenopathy, or bruit. Respiratory: clear to ascultation bilaterally. No rales/rhonic/wheezes. Cardiovascular: Regular rate and rhythm, normal S1-S2 upon ascultation. No murmurs, rubs, or clicks. PMI is nondisplaced, capillary refill less than 3 second. Abdomen: Soft, round, no pulsatile masses, nondistended and nontender. No rebound, no guarding. No CVA tenderness, no hepatosplenomegaly. Bowel sounds present to all four quadrants. No high pitch or tinkling sounds, resonant to percussion. Extremities: No cyanosis, clubbing, or edema present. Pulses are palpable 2/2. Active ROM to all four extremities. Neuro: Alert and orientated x 4. PERRLA. Cranial nerves 2-12 intact without focal deficit. Skin: Warm, dry, and intact, without rash, erythema, or lesion. Psych: pleasant, cooperative, normal speech, normal affect, no hallucinations Const: General: comfortable Objective Data Vital Signs Vital Signs: Vital Signs - 24 hr 01/28/25 14:00 01/28/25 21:25 01/28/25 21:41 Temperature 97.9 F 96.8 F L Pulse Rate 89 86 Pulse Rate [Bilateral Radial Palpation] Respiratory Rate 18 16 Blood Pressure 124/74 122/75 Pulse Oximetry 98 92 Oxygen Delivery Room Air 01/29/25 04:54 01/29/25 08:56 Temperature 97.6 F Pulse Rate 74 Pulse Rate [Bilateral Radial Palpation] 77 Respiratory Rate 14 Blood Pressure 133/89 145/90 H Pulse Oximetry 96 Oxygen Delivery Intake/Output Intake/Output: Intake & Output 01/26/25 01/27/25 01/28/25 01/29/25 23:59 23:59 23:59 23:59 Intake Total 1999 4204.2 1270 Balance 1999 4204.2 1270 Meds/Results Medications: Active Medications Generic Name Dose Route Start Last Admin Trade Name Freq PRN Reason Stop Dose Admin Atorvastatin Calcium 40 mg 01/27/25 20:55 01/28/25 17:14 Atorvastatin 40 Mg Tablet PO 40 mg QPM [facility]IN[facility] Administration Dicyclomine HCl 20 mg 01/27/25 20:49 Dicyclomine Hcl 10 Mg Capsule PO QID PRN abdominal pain Folic Acid 1 mg 01/28/25 09:00 01/29/25 08:54 Folic Acid 1 Mg Tablet PO 1 mg DAILY [facility]INH Administration Sodium Chloride 1,000 mls @ 150 mls/hr 01/27/25 18:10 01/29/25 07:00 Normal Saline Iv IV CONT Not Given .Q6H40M [facility] Piperacillin Sod/Tazobactam 50 mls @ 100 mls/hr 01/28/25 00:00 01/29/25 05:55 Sod 3.375 gm/ Sodium Chloride IVPB Infused Q6H [facility] Infusion Ibuprofen 600 mg 01/27/25 19:55 01/28/25 18:42 Ibuprofen 600 Mg Tablet PO 600 mg Q6H PRN Administration Headache Lorazepam 2 mg 01/27/25 19:29 01/29/25 09:16 Lorazepam (*Crx) 1 Mg Tablet PO 2 mg Q4HR PRN Administration Alcohol Withdrawal Multivitamins/Calcium 1 tablet 01/28/25 09:00 01/29/25 08:54 Therapeutic Multivitamins/Minerals Tab (*Bkc) PO 1 tablet DAILY [facility]IN[facility] Administration Nicotine 1 patch 01/27/25 22:50 01/29/25 08:56 Nicotine (*Pbkc) 21 Mg Patch TRANSDERM 1 patch DAILY [facility] Administration Ondansetron HCl 4 mg 01/27/25 18:08 Ondansetron Inj 4 Mg/2 Ml Vial IV PUSH Q4H PRN Nausea Pantoprazole Sodium 40 mg 01/27/25 21:00 01/29/25 08:56 Pantoprazole Sodium Iv 40 Mg Vial IV PUSH 40 mg Q12HR [facility] Administration Prazosin HCl 2 mg 01/27/25 20:55 01/28/25 17:14 Prazosin Hcl 1 Mg Capsule PO 2 mg QPM BIN[facility] Administration Promethazine HCl 12.5 mg 01/27/25 18:54 Promethazine Hcl 25 Mg/Ml Ampul IV PUSH Q4H PRN Nausea And Vomiting Quetiapine Fumarate 50 mg 01/27/25 21:00 01/28/25 21:32 Quetiapine Fumarate Xr 50 Mg Tab.Er.24h PO 50 mg HS BINH Administration Sucralfate 1,000 mg 01/27/25 21:00 01/29/25 05:24 Sucralfate Susp 100 Mg/Ml 10 Ml Udc PO 1,000 mg ACHS BIN[facility] Administration Thiamine HCl 100 mg 01/28/25 09:00 01/29/25 08:54 Thiamine Hcl 100 Mg Tablet PO 100 mg DAILY [facility]IN[facility] Administration Venlafaxine HCl 75 mg 01/27/25 19:40 01/28/25 17:14 Venlafaxine Hcl Xr 75 Mg Cap.Er.24h PO 75 mg QPM BIN[facility] Administration Radiology Results: ITS Impressions Abdomen/Pelvis CT 01/27/25 16:17 IMPRESSION: Colitis detailed above probably infectious. No perforation or abscess Labs Labs: Laboratory Results - last 24 hr 01/28/25 01/29/25 11:50 05:32 WBC 6.6 RBC 3.09 L Hgb 10.7 L Hct 32.4 L MCV 104.9 H MCH 34.6 H MCHC 33.0 RDW 13.2 Plt Count 152 MPV 8.3 Sodium 138 Potassium 3.1 L Chloride 113 H Carbon Dioxide 20 L Anion Gap 5 BUN 6 L Creatinine 0.91 Estim Creat Clear Calc 76 Estimated GFR > 60 Glucose 97 Calcium 7.2 L Total Bilirubin 0.5 AST 20 ALT 21 Alkaline Phosphatase 58 Total Protein 5.2 L Albumin 3.0 L C. difficile (PCR) Negative Quality VTE Prophylaxis VTE prophylaxis: mechanical ordered
[2025-01-29 12:36] VITALS: BP 138/91; PULSE 64
[2025-01-29] MEDS: SODIUM CHLORIDE 0.9% IV 1,000 ML 60 ML IV CONT ×2 (13:55→23:48)
[2025-01-29] MEDS: POTASSIUM CHLORIDE INJ 40 MEQ in SODIUM CHLORIDE 0.9% IV 500 ML 120 MEQ IVPB (13:56)
[2025-01-29 14:00] VITALS: BP 140/77; PULSE 65; RESP 20; TEMP 36.2; O2SAT 97
[2025-01-29 16:00] VITALS: BP 154/91; PULSE 74
[2025-01-29] MEDS: PRAZOSIN HCL 1 MG CAPSULE 2 MG PO (18:27)
[2025-01-29] MEDS: ATORVASTATIN 40 MG TABLET PO (18:27)
[2025-01-29] MEDS: VENLAFAXINE HCL XR 75 MG CAP.ER.24H PO (18:27)
[2025-01-29] MEDS: QUEtiapine FUMARATE XR 50 MG TAB.ER.24H PO (20:26)
[2025-01-29 20:34] LABS: Potassium 3.4 mmol/L (3.4-5.0)
[2025-01-29 21:28] VITALS: BP 149/92; PULSE 58; RESP 17; TEMP 36.4; O2SAT 98
[2025-01-30 04:00] VITALS: PULSE 74
[2025-01-30 05:03] VITALS: BP 144/85; PULSE 68; RESP 16; TEMP 36.4; O2SAT 94
[2025-01-30] MEDS: SODIUM CHLORIDE 0.9% IV 1,000 ML 60 ML IV CONT (05:58)
[2025-01-30] MEDS: SUCRALFATE SUSP 100 MG/ML 10 ML UDC 1000 MG PO (05:58)
[2025-01-30] MEDS: PIPERACILLIN/TAZOBACTAM SOD 3.375 GM in SODIUM CHLORIDE 0.9% IV 50 ML 100 ML IVPB (05:58)
[2025-01-30 08:00] VITALS: PULSE 68; RESP 16; O2SAT 94
[2025-01-30] MEDS: NICOTINE (*PBKC) 21 MG PATCH 1 PATCH TRANSDERM (08:36)
[2025-01-30] MEDS: THERAPEUTIC MULTIVITAMINS/MINERALS TAB (*BKC) 1 TABLET PO (08:36)
[2025-01-30] MEDS: THIAMINE HCL 100 MG TABLET PO (08:36)
[2025-01-30] MEDS: FOLIC ACID 1 MG TABLET PO (08:36)
[2025-01-30] MEDS: PANTOPRAZOLE SODIUM IV 40 MG VIAL IV PUSH (08:36)
--- NOTE | 2025-01-30 08:57 | P.DS_ITS ---
DS: Admitting Diagnosis Discharge Date 01/30 Admitting Diagnosis alcohol withdrawal DS: Discharge Diagnosis Discharge Diagnosis (1) Alcohol abuse: Code(s): F10.10 - Alcohol abuse, uncomplicated Status: Acute (2) Intractable vomiting: Code(s): R11.10 - Vomiting, unspecified Status: Acute (3) Depression: Code(s): F32.A - Depression, unspecified Status: Acute (4) Medication withdrawal: Code(s): F19.939 - Other psychoactive substance use, unspecified with withdrawal, unspecified Status: Acute (5) Marijuana abuse: Code(s): F12.10 - Cannabis abuse, uncomplicated Status: Acute (6) Colitis: Code(s): K52.9 - Noninfective gastroenteritis and colitis, unspecified Status: Acute DS: Summary Hospital Course Hospital Course: 44-year-old female patient with past medical history of PTSD, alcohol abuse over 3 years, depression anxiety presents the hospital after alcoholic binge with intractable vomiting. She has generalized complaints of malaise, headache. She states that her provider switched her anti depression medications on and has not started on her new medications. She states that she was feeling off and decided to have a drink. That turned into her drinks 5th of vodka. Patient also states that she was unable to take her Effexor this morning. IN ed: wbc 16.2, ua unremarkable, UDS positive for cannabis. Abdomen/Pelvis CT 01/27/25 16:17 IMPRESSION: Colitis detailed above probably infectious. No perforation or abscess. 01/29- pt is seen and examined. She is overall better but still diarrhea. at a bedside-reports that pt is undergoing eval for diarrhea. Pt required 1 dose of ativan as she was anxious. She has a script for Naltrexone that she was given per her PCP but she has not started taking it yet. 01/30 she is feeling a lot better, no more nausea. Still some diarrhea but overall improved. Denies shakiness, headache, anxiety. Stable for discharge-will need a close f/u with PCP and continue f/u with . Status at Discharge Functional status at discharge: independent ambulation Overall status at discharge: patient is progressing back to baseline Time Spent with Patient Time attestation: Total time spent providing and/or coordinating discharge services: Time spent: Greater than 30 minutes Exam Narrative: General: resting in bed, alert/calm. HEENT: normocephalic, atraumatic. Mucous membranes moist. EOMI, PERRLA, bilateral sclera anicteric, no conjunctival injection. Neck supple without JVD, lymphadenopathy, or bruit. Respiratory: clear to ascultation bilaterally. No rales/rhonic/wheezes. Cardiovascular: Regular rate and rhythm, normal S1-S2 upon ascultation. No murmurs, rubs, or clicks. PMI is nondisplaced, capillary refill less than 3 second. Abdomen: Soft, round, no pulsatile masses, nondistended and nontender. No rebound, no guarding. No CVA tenderness, no hepatosplenomegaly. Bowel sounds present to all four quadrants. No high pitch or tinkling sounds, resonant to percussion. Extremities: No cyanosis, clubbing, or edema present. Pulses are palpable 2/2. Active ROM to all four extremities. Neuro: Alert and orientated x 4. PERRLA. Cranial nerves 2-12 intact without f ocal deficit. Skin: Warm, dry, and intact, without rash, erythema, or lesion. Psych: pleasant, cooperative, normal speech, normal affect, no hallucinations Const: General: comfortable DS: Data Data Completed and Pending Labs on day of discharge: Labs from last 24 hours 01/29/25 20:22 Potassium 3.4 Discharge Plan Discharge Attending physician on discharge: [place] Discharging Clinician: Stephany Escobar Patient Disposition: Home Activity: may shower Diet: as tolerated and low fat Discharge Instructions: Please take your naltrexone as directed per prescribing provider. Dont drink alcohol or take any strong pain meds while taking this medication. Patient Instructions: Antibiotic Form Patient Language: [place] Stand Alone Forms: General Discharge Information Follow-up/Referrals: Cammie,FLORI Escalona [Primary Care Provider, Unknown] - 2 Weeks Discharge Medications: Continued famotidine 20 mg tablet 20 mg PO DAILY venlafaxine 75 mg capsule,extended release 24hr 75 mg PO QPM atorvastatin 40 mg tablet 40 mg PO QPM prazosin 2 mg capsule 2 mg PO QPM dicyclomine 20 mg tablet 20 mg PO QID PRN (Reason: abdominal pain) Qty: 20 0RF quetiapine 150 mg tablet extended release 24 hr 150 mg PO HS quetiapine 50 mg tablet extended release 24 hr 50 mg PO HS Date of admission: 01/27/25 18:08 Primary Care Provider: CammieIqra Admitting Provider: Lory Mott Attending physician on admission: Lory Mott Condition: Stable Quality VTE Prophylaxis VTE prophylaxis: mechanical ordered Hospitalist MIPS Heart Failure (Exclusion) Patient has history of Heart Transplant or Left Ventricular Assistive Device?: No IF YES, STOP HERE Heart Failure (Qualifier) Patient has current or prior documentation of LVEF less than or equal to 40%, or mod/servere depressed LVSF?: No IF NO, STOP HERE
== END 2025-01-30 10:04 | disposition home or self-care (01) ==
LOC: ANHED 18:15 → ANH3MEDSUR 01-30 09:14
PROVIDERS: Nurse Practitioner; Nurse Practitioner Gerontology; Admitting Provider Student in an Organized Health Care Education/Training Program; Emergency Provider Emergency Medicine; PCP Physician Assistant; Visit Provider Internal Medicine
DX: F10.10 Alcohol abuse, uncomplicated (principal); F12.10 Cannabis abuse, uncomplicated; R11.10 Vomiting, unspecified; K52.9 Noninfective gastroenteritis and colitis, unspecified; F41.8 Other specified anxiety disorders; F19.939 Other psychoactive substance use, unspecified with withdrawal, unspecified; F43.10 Post-traumatic stress disorder, unspecified; E78.5 Hyperlipidemia, unspecified; Z79.82 Long term (current) use of aspirin; K21.9 Gastro-esophageal reflux disease without esophagitis; G89.4 Chronic pain syndrome; F17.210 Nicotine dependence, cigarettes, uncomplicated
CPT/HCPCS: 36415; 74177; 80048; 80053; 80307; 81001; 81025; 82077; 83690; 84132; 85025; 85027; 87493; 96361; 96365; 96366; 96367; 96374; 96375; 96376; 99285; A9270; G0378; J1200; J2270; J2405; J2470; J2543; J2765; J3360; J3411; J3475; J3480; J7030; J7040; J7121; Q9967

== ENCOUNTER 2025-04-22 16:30 | Emergency (ER) | payer BC, SELFPAY ==
--- NOTE | ~2025-04-22 | CT_ITS ---
Sterling Tillman EXAMINATION: CT abdomen pelvis w con COMPARISON: None HISTORY: epigastric pain, N/V/D TECHNIQUE: Axial images were obtained through the abdomen, pelvis post administration of IV contrast. Oral contrast was also administered. Coronal reconstruction images were obtained from the axial views. CT scan performed using dose optimization techniques including the following automated exposure control; adjustment of mA and/or kV; use of iterative reconstruction technique. Automatic exposure control was used to reduce radiation dose. Permanent radiation dose record is archived to PACS. FINDINGS: CT abdomen: LUNG BASES: The lung bases are clear. The visualized portions of the heart and pericardium are unremarkable. LIVER: Unremarkable, liver contours intact, no lesions. SPLEEN: Unremarkable. KIDNEYS: Right Kidney: Unremarkable. No calculi. No hydronephrosis. Left Kidney: Unremarkable. No calculi. No hydronephrosis ADRENAL GLANDS: Unremarkable. PANCREAS: Unremarkable. GALLBLADDER/BILIARY: Post cholecystectomy. STOMACH AND ESOPHAGUS: Visualized stomach and esophagus within normal limits. BOWEL/MESENTERY: There is hyperemia with thickening of the rectal extending into the sigmoid colon. Minimal thickening noted of the descending colon. There is no perforation or abscess identified. The appendix is not identified. Remaining mesentery is normal. There are no thickened or dilated loops of small bowel. ADENOPATHY/RETROPERITONEUM: No lymphadenopathy. AORTA/VASCULATURE: Normal caliber aorta. FREE FLUID OR FREE AIR: None. CT pelvis: SOLID ORGANS/REPRODUCTIVE: The uterus appears atrophic. There is no adnexal mass. BLADDER: Within normal limits. OSSEOUS STRUCTURES: No acute osseous abnormality.No suspicious lesions. OVERLYING SOFT TISSUES: Unremarkable. IMPRESSION: Probable colitis detailed above likely infectious in origin. No perforation or abscess. Reviewed, dictated and finalized at location P. TIONAL NURSE LVN
--- OUTSIDE RECORDS SUMMARY | 2025-04-22 16:33 | XMS_ITS | Clinical Summary ---
Author Organization [facility] Address [address] [facility] [place] [address] Care Team Providers Care Lye Machine Operator Name Role Phone Teresita Brantley MD Primary Care Provider [phone] Source Comments [facility],non-owned Affiliates and Associated Physician Practices is amultiple site organization consisting of ambulatory clinics and hospital sitesin [place], [place], [place] and [place]. This disclosure is being madepursuant to the Care Everywhere program and may not contain all information available regarding this patient. Last updated 18.[facility] Allergies No known active allergies Medications * [...] on file Legal Sex Female 6:00 AM WATER TREATMENT SPECIALIST Gender Identity Not on file Sexual Orientation Not on file Last Filed Vital Signs Vital Sign Reading Time Taken Comments Blood Pressure 114/80 07/12/2023 8:41 AM WATER TREATMENT SPECIALIST Pulse 79 07/12/2023 8:41 AM WATER TREATMENT SPECIALIST Temperature - - Respiratory Rate - - Oxygen Saturation 97% 07/12/2023 8:41 AM WATER TREATMENT SPECIALIST Inhaled Oxygen Concentration - - Weight 79.4 kg (175 lb) 07/12/2023 8:41 AM WATER TREATMENT SPECIALIST Height 160 cm (5' 3) 07/12/2023 8:41 AM WATER TREATMENT SPECIALIST Body Mass Index 31 07/12/2023 8:41 AM WATER TREATMENT SPECIALIST Plan of Treatment Health Maintenance Due Date Last Done Comments MAMMOGRAM 1981 HIV SCREENING 1996 HEPATITIS C SCREENING 06/05/1999 DTAP/TDAP/TD VACCINES (1 - Tdap) 2000 HEPATITIS B VACCINE (1 of 3 - 19+ 3-dose series) 2000 Cervical Cancer Screening 2002 PAP SMEAR 2002 HPV VACCINE (1 - 3-dose SCDM series) 2008 PAP with HPV 2011 SCREENING FOR DIABETES 07/12/2023 DEPRESSION SCREENING 05/31/2024 COVID-19 VACCINE ( - 2024-2 6 season) 2025 INFLUENZA VACCINE (#1) 2025 ZOSTER VACCINE (1 [...] patient's age to complete this topic Insurance [place] [address] [place] [address] Care Teams Lye Machine Operator Relationship Specialty Start Date End Date Teresita Brantley MD [address] [place] [id number] PCP - General 10/31/20
--- OUTSIDE RECORDS SUMMARY | 2025-04-22 16:33 | XMS_ITS | Clinical Summary ---
Author Organization [facility] Address [address] [place] [address] Care Team Providers Care Mortgage Closer Name Role Phone Unavailable Primary Care Provider [...] HPV 2011 Mammogram Screening 2021 COVID-19 Vaccine (2024-2 6 season) 2025 Influenza Adult (#1) 2025 Hepatitis A Vaccines Aged Out No long er eligible based [...]
--- OUTSIDE RECORDS SUMMARY | 2025-04-22 16:33 | XMS_ITS | Clinical Summary ---
Author Organization [facility] Address [address] [place] [address] Care Team Providers Care Health Advocate Name Role Phone Iqra Bonds Primary Care Provider [phone] Allergies No known active allergies Medications aspirin [...] on file Legal Sex Female 2:23 AM DIGITAL RETOUCHER Gender Identity Not on file Sexual Orientation Not on file Last Filed Vital Signs Vital Sign Reading Time Taken Comments Blood Pressure 122/78 04/26/2023 3:05 PM DIGITAL RETOUCHER Pulse 84 04/26/2023 3:05 PM DIGITAL RETOUCHER Temperature 36.9 C (98.5 F) 12/16/2022 8:50 PM CDT Respiratory Rate 16 12/16/2022 8:50 PM CDT Oxygen Saturation 98% 04/26/2023 3:05 PM DIGITAL RETOUCHER Inhaled Oxygen Concentration - - Weight 79.9 kg (176 lb 2.4 oz) 04/26/2023 3:05 P M DIGITAL RETOUCHER Height 160 cm (5' 3) 12/16/2022 5:22 [...] 3-dose SCD M series) 2008 Covid-19 Vaccine (2024-2 6 season) 2025 07/10/2021, 2021, 12/06/2020, Additional history exists Influenza Vaccine (#1) 2025 Medical Devices Implanted Type Area Stripping Shovel Oiler Device Identifier Shelf Expiration Date Model / Serial / Lot Plate Plate Left: Ankle Insurance [facility] ANTHEM ACCESS CHOICE ANTHEM ACCESS CHOICE Care Teams Health Advocate Relationship Specialty Start Date End Date Iqra Bonds PA [address] [place] [id number] PCP - General Physician Melt Down Furnace Operator 10/09/22
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
[2025-04-22 16:34] VITALS: BP 164/106; PULSE 90; RESP 16; TEMP 36.7; O2SAT 99
--- NOTE | 2025-04-22 16:41 | PC.NURSE ---
Pt. states she is unable to provide urine sample at this time.
--- NOTE | 2025-04-22 16:52 | ED.NAVMDI ---
HPI - Nausea/Vomiting/Diarrhea General Chief complaint: Nausea/Vomiting/Diarrhea Stated complaint: n/v Time Seen by Provider: 04/22/25 16:38 Source: patient Mode of arrival: ambulatory Limitations: no limitations History of Present Illness HPI Narrative: Patient is a 44-year-old female, with PMH of cholecystectomy, who presents the ED with report of nausea, vomiting, diarrhea. Patient reports she has been sick since around 3:00 a.m. this morning. Reports persistent nausea, vomiting, diarrhea that is green in color. States she has been unable to keep down food or drink. Reports pain in epigastric region. States she has had similar episodes of pain and N/V in the past. Reports she was diagnosed with a hangover last time she was evaluated for this. Denies fevers, rectal bleeding, bad food exposure, family members with similar sx's. Related Data Home Medications ?Medication ?Instructions ?Recorded ?Confirmed ?Last Taken ?Type atorvastatin 40 mg tablet 40 mg PO QPM 08/15/24 01/27/25 Unknown History prazosin 2 mg capsule 2 mg PO QPM 08/15/24 01/27/25 Unknown History famotidine 20 mg tablet 20 mg PO DAILY 10/10/24 01/27/25 Unknown History venlafaxine 75 mg capsule,extended 75 mg PO QPM 10/10/24 01/27/25 Unknown History release 24 hr quetiapine 150 mg tablet,extended 150 mg PO HS 01/27/25 01/27/25 Unknown History release 24 hr quetiapine 50 mg tablet,extended 50 mg PO HS 01/27/25 01/27/25 Unknown History release 24 hr Allergies Allergy/AdvReac Type Severity Reaction Status Date / Time No Known Allergies Allergy Verified 04/22/25 17:38 Review of Systems Review of Systems: All systems reviewed & are unremarkable except as noted in HPI. All systems reviewed & are unremarkable except as noted in HPI and below PMFSH Past Medical History Medical History Hx of migraines Depression Chronic pain syndrome Anxiety Stomach ulcer GERD (gastroesophageal reflux disease) Anxiety Surgical History Surgical History Hx laparoscopic cholecystectomy History of foot surgery left 2020 Family History Family History Father Heart attack Unknown Diabetes mellitus Mother Suicide Other Diabetes mellitus Hypertension Social History Social History Smoking packs per day: 0.75 Smoking cigarettes per day: 15.0 Years smoked: 22 Smoking pack-years: 16.50 Smoking status: Current every day smoker Tobacco type: cigarettes Second hand tobacco smoke exposure: No Alcohol intake: current Drinks per week: 1 Substance use: never Substance use type: does not use and marijuana Lack of Transportation: No Lack of Food: Never True Current Housing: I Have Housing Concerned About Future Housing: No Difficulty Paying Gas/Electric Bills: No Difficulty Paying for Meds: No Currently Unemployed: No Education: High School Diploma/GED Difficulty w/ Childcare or Family Care: No Living arrangements: with family Occupation/Education: unemployed Gender identity (if verbalized by the patient): Female Spiritual care concerns: No Exam Narrative: GENERAL: Uncomfortable appearing, obese with BMI of 34.4, non-toxic, in no acute distress. HEAD: Normocephalic, atraumatic. RESPIRATORY: Airway patent, respirations nonlabored. Clear to auscultation bilaterally, no rales, rhonchi, wheezing. CARDIOVASCULAR: Regular rate and rhythm without murmurs, rubs, or gallops. ABDOMINAL: Soft, mild diffuse tenderness throughout abdomen, moderate tenderness in epigastric region, nondistended. Normoactive BS. MUSCULOSKELETAL: Moves all extremities. No gross deformities. SKIN: Warm, dry, normal color. NEURO: A&O X3. Speech clear. Cranial nerves II-XII grossly intact. Steady gait. No ataxic movements. PSYCHIATRIC: Anxious, tearful. Normal interaction. Course Vital Signs Vital signs: Vital Signs Temperature 98.1 F 04/22/25 16:34 Pulse Rate 90 04/22/25 16:34 Respiratory Rate 16 04/22/25 16:34 Blood Pressure 164/106 H 04/22/25 16:34 Pulse Oximetry 99 04/22/25 16:34 Oxygen Delivery Room Air 04/22/25 16:34 Temperature 98.1 F 04/22/25 16:34 Pulse Rate 96 04/22/25 19:57 Respiratory Rate 20 04/22/25 19:57 Blood Pressure 120/77 04/22/25 19:57 Pulse Oximetry 96 04/22/25 19:57 Oxygen Delivery Room Air 04/22/25 16:34 MDM - Nausea/Vomiting/Diarrhea MDM Narrative Medical decision making narrative: Patient presented to ED with several hour onset of N/V/D. Hx of similar episodes in the past. Vital signs are stable upon arrival. Patient afebrile. Uncomfortable appearing. Laboratory studies with leukocytosis of 14.5. H&H is stable. CMP with evidence of dehydration. Bicarb 17. Anion gap minimally elevated to 14. Blood sugar 123. Mag borderline at 1.6. Given 2g IV replacement. Normal LFTs and lipase. UA also with evidence of dehydration, no signs of infection. CT scan of the abdomen/pelvis obtained and showing evidence of colitis, likely infectious. No perforation or abscess. Discussed lab and imaging findings with patient. She was given 2 L of fluid in the ED in addition to morphine, Pepcid, Zofran, Bentyl. She is feeling much improved on re-evaluation. Feel she is safe for discharge home at this time. Will treat with oral antibiotics for likely infectious colitis given leukocytosis. Given 1st doses of Flagyl/metronidazole in the ED. will also discharge with Zofran and Bentyl for home use. Discussed dietary modifications, strict return precautions. Patient is in agreement with plan. Feels comfortable going home. Discharged in stable condition. Medical Records Attestation: I reviewed the patient's medical records. Lab Data Attestation: I reviewed the patient's lab results. 04/22/25 17:25 04/22/25 17:25 Labs: Lab Results 04/22/25 04/22/25 Range/Units 17:25 18:28 WBC 14.5 H (4.5-10.0) K/mm3 RBC 4.34 (4.2-5.4) M/mm3 Hgb 14.8 D (12.0-15.0) g/dL Hct 41.9 (37.0-47.0) % MCV 96.5 (80-100) fl MCH 34.1 H (26-34) pg MCHC 35.3 (32-36) g/dl RDW 13.9 (11.5-14.5) % Plt Count 365 D (150-375) k/mm3 MPV 9.0 (7.4-10.4) fl Immature Gran % (Auto) 0.5 (0-0.5) % Neut % (Auto) 83.4 H (45.5-73.1) % Lymph % (Auto) 11.9 L (18.3-44.2) % Dodge % (Auto) 3.9 (2.6-8.5) % Eos % (Auto) 0.0 (0-4.4) % Baso % (Auto) 0.3 (0.2-1.2) % Lymph # (Auto) 1.72 (0.9-3.2) K/mm3 Dodge # (Auto) 0.6 (0.1-0.6) K/mm3 Eos # (Auto) 0.0 (0-0.3) K/mm3 Baso # (Auto) 0.0 (0.0-0.1) K/mm3 Abs Immat Gran (auto) 0.07 H (0.00-0.031) K/mm3 Absolute Neuts (auto) 12.1 H (1.3-6.7) K/mm3 Absolute Nucleated RBC 0.000 (0.0-0.012) K/mm3 Nucleated RBC % 0.0 (0.0-0.2) % Sodium 135 L (137-145) mmol/L Potassium 3.8 (3.4-5.0) mmol/L Chloride 104 (98-107) mmol/L Carbon Dioxide 17 L (22-30) mmol/L Anion Gap 14 H (4-12) mmol/L BUN 11 D (7-17) mg/dL Creatinine 0.86 (0.7-1.0) mg/dL Estim Creat Clear Calc 78 ml/min Estimated GFR > 60 (59 - ) Glucose 123 H (65-110) mg/dL Calcium 8.9 (8.4-10.2) mg/dL Magnesium 1.6 (1.6-2.3) mg/dL Total Bilirubin 1.0 (0.2-1.3) mg/dL AST 30 (14-36) U/L ALT 43 H (6-35) U/L Alkaline Phosphatase 107 (38-126) U/L Total Protein 7.6 (6.3-8.2) g/dL Albumin 4.5 (3.5-5.1) g/dL Lipase 21 L (23-300) U/L Serum HCG, Qual Negative Urine Color Yellow (Yellow) Urine Appearance Clear (Clear) Urine pH 7.0 (5.0-9.0) Ur Specific Anderson > 1.045 H (1.001-1.035) Urine Protein 1+ H (Negative) mg/dL Urine Glucose (UA) Negative (Negative) mg/dL Urine Ketones 2+ H (Negative) mg/dL Ur Blood (Man) 1+ H (Negative) Urine Nitrate Negative (Negative) Urine Bilirubin Negative (Negative) Urine Urobilinogen 0.2 (<2.0) mg/dL Add Ur Microanalysis Reviewed Leukocyte Esterase Rfl Negative (Negative) RINKU/UL Urine RBC 21-50 H (0-2) /hpf Urine WBC 0-5 (0-3) /hpf Ur Squamous Epith Cells Moderate (Few) /hpf Urine Bacteria 1+ H /hpf Urine Casts 0-2 Urine Mucus Present /lpf Imaging Data Attestation: I personally reviewed and interpreted this imaging study as follows: Radiologist's impression: ITS Impressions Abdomen/Pelvis CT 04/22/25 18:23 IMPRESSION: Probable colitis detailed above likely infectious in origin. No perforation or abscess. Discharge Plan Discharge Clinical Impression: Colitis, Gastroenteritis Patient Disposition: Home Condition: Stable Instructions: Antibiotic Form, Dehydration (ED), Gastroenteritis (ED), Acute Nausea and Vomiting (ED), Colitis (ED) Additional Instructions: Take antibiotics as prescribed. It is important you finish both courses. Do not drink alcohol while taking Flagyl/metronidazole. Utilize Tylenol, Bentyl as needed for further abdominal discomfort. Utilize zofran as needed for further nausea. Increase fluid intake. Recommend electrolyte rich fluids, gatorade, pedialyte, body armour. Recommend clear liquids or bland diet until symptoms improve, such as bananas, rice, applesauce, toast, or crackers. Follow up with your primary care doctor for further evaluation. Return to the ED if you experience worsening or severe symptoms, unable to keep down food or drink, severe pain, fevers, rectal bleeding, vomiting blood, or any other symptoms of concern. Patient Language: Thai Prescriptions: New metronidazole 500 mg tablet 500 mg PO Q8H 7 Days Qty: 21 0RF ciprofloxacin HCl 500 mg tablet 500 mg PO Q12H 7 Days Qty: 14 0RF dicyclomine 20 mg tablet 20 mg PO TID PRN (Reason: Abdominal Discomfort) Qty: 15 0RF ondansetron 4 mg tablet,disintegrating 4 mg PO Q8H PRN (Reason: nausea and vomiting) Qty: 15 0RF No Action famotidine 20 mg tablet 20 mg PO DAILY venlafaxine 75 mg capsule,extended release 24hr 75 mg PO QPM atorvastatin 40 mg tablet 40 mg PO QPM prazosin 2 mg capsule 2 mg PO QPM dicyclomine 20 mg tablet 20 mg PO QID PRN (Reason: abdominal pain) Qty: 20 0RF quetiapine 150 mg tablet extended release 24 hr 150 mg PO HS quetiapine 50 mg tablet extended release 24 hr 50 mg PO HS Follow-up/Referrals: Cammie,FLORI Escalona [Primary Care Provider, Unknown] Time of Disposition: 20:03
[2025-04-22 17:30] LABS: Hematocrit 41.9 % (37.0-47.0); Hemoglobin 14.8 g/dL (12.0-15.0); Immature Granulocyte Percent A 0.5 % (0-0.5); Lymphocytes Absolute Auto 1.72 K/mm3 (0.9-3.2); Mean Corpuscular HGB Conc 35.3 g/dl (32-36); Mean Corpuscular Hemoglobin 34.1 pg (26-34); Mean Corpuscular Volume 96.5 fl (80-100); Nucleated Red Blood Cells Absolute Auto 0.000 K/mm3 (0.0-0.012); Nucleated Red Blood Cells Perc 0.0 % (0.0-0.2); Platelet Count Result 365 k/mm3 (150-375); Red Blood Count 4.34 M/mm3 (4.2-5.4); White Blood Count 14.5 K/mm3 (4.5-10.0)
[2025-04-22] MEDS: ONDANSETRON INJ 4 MG/2 ML VIAL IV PUSH (17:30)
[2025-04-22] MEDS: FAMOTIDINE 20 MG/2 ML VIAL IV PUSH (17:30)
[2025-04-22] MEDS: SODIUM CHLORIDE 0.9% IV 1,000 ML 999 ML IV CONT ×2 (17:30→18:50)
[2025-04-22] MEDS: MORPHINE SULFATE (*CRX) 4 MG/ML INJ IV PUSH (17:30)
[2025-04-22 17:38] VITALS: BP 127/112; PULSE 100; RESP 25; O2SAT 99
[2025-04-22 17:42] LABS: Alanine Aminotransferase 43 U/L (6-35); Albumin Level 4.5 g/dL (3.5-5.1); Alkaline Phosphatase 107 U/L (38-126); Anion Gap 14 mmol/L (4-12); Aspartate Amino Transferase 30 U/L (14-36); Bilirubin,Total 1.0 mg/dL (0.2-1.3); Blood Urea Nitrogen 11 mg/dL (7-17); Calcium 8.9 mg/dL (8.4-10.2); Carbon Dioxide 17 mmol/L (22-30); Chloride 104 mmol/L (98-107); Estimated CRCL calculation 78 ml/min; Estimated Glomerular Filt Rate > 60; Glucose 123 mg/dL (65-110); Lipase 21 U/L (23-300); Magnesium 1.6 mg/dL (1.6-2.3); Potassium 3.8 mmol/L (3.4-5.0); Sodium 135 mmol/L (137-145); Total Protein 7.6 g/dL (6.3-8.2)
[2025-04-22 17:57] LABS: SPREG INTERNAL CONTROL Positive; Serum Qual hCG Negative
[2025-04-22] MEDS: MAGNESIUM SULF 2 GM/WATER 50ML 2 GM/50 ML BAG IVPB (18:41)
[2025-04-22 18:51] VITALS: BP 126/74; PULSE 96; RESP 14; O2SAT 96
[2025-04-22 19:01] LABS: Add Urine Microscopic? YES; Appearance Urine Clear (Clear); Glucose Urine UA Negative (Negative); Leukocyte Esterase Ur Negative LEU/UL (Negative); Need Manual Microscopic Reviewed; Nitrate Urine Negative (Negative); Non Pathogenic Casts 0-2; Specific Grav Ur > 1.045 (1.001-1.035)
[2025-04-22] MEDS: DICYCLOMINE HCL 10 MG CAPSULE 20 MG PO (19:18)
[2025-04-22 19:57] VITALS: BP 120/77; PULSE 96; RESP 20; O2SAT 96
[2025-04-22] MEDS: CIPROFLOXACIN 500 MG TAB PO (19:57)
== END 2025-04-22 20:23 | disposition home or self-care (01) ==
PROVIDERS: Emergency Provider Physician Assistant; PCP Physician Assistant
DX: K52.9 Noninfective gastroenteritis and colitis, unspecified (principal); G89.4 Chronic pain syndrome; K21.9 Gastro-esophageal reflux disease without esophagitis; F32.A Depression, unspecified; F41.9 Anxiety disorder, unspecified; F17.210 Nicotine dependence, cigarettes, uncomplicated; Z90.49 Acquired absence of other specified parts of digestive tract; Z79.899 Other long term (current) drug therapy
CPT/HCPCS: 36415; 74177; 80053; 81001; 83690; 83735; 84703; 85025; 96361; 96365; 96375; 99284; A9270; J2270; J2405; J3475; J7030; Q9967

== ENCOUNTER 2025-05-20 13:46 | Emergency (ER) | payer BC, SELFPAY ==
--- NOTE | ~2025-05-20 | CT_ITS ---
EXAMINATION: CT abdomen pelvis w con DATE: 05/20/2025 16:14 INDICATION: Abdominal pain. GI bleed. TECHNIQUE: Computed tomography (CT) of the abdomen and pelvis was performed with 100 cc intravenous contrast. Automated exposure control and iterative reconstruction technique were employed. The dose-length product was 567.55 mGy-cm. COMPARISON: CT abdomen pelvis dated 04/22/2025, 01/27/2025, 08/30/2024. FINDINGS: Lung bases do not show acute findings. Hepatomegaly. No focal lesions of the liver. Gallbladder is absent. Pancreas, kidneys do not show acute findings. No retroperitoneal adenopathy or small bowel obstruction. Moderate inflammatory changes of the mucosa of the proximal colon. Mesenteric arteries and veins are patent. No free fluid or free air. IMPRESSION: 1. Evidence of colitis involving proximal colon similar to multiple prior imaging studies tension above. 2. No free fluid. No free air. 3. Hepatomegaly. Reviewed, dictated and finalized at location T. MANAGER IMPRESSION: 1. Evidence of colitis involving proximal colon similar to multiple prior imagi ng studies tension above. 2. No free fluid. No free air. 3. Hepatomegaly.
--- OUTSIDE RECORDS SUMMARY | 2025-05-20 13:47 | XMS_ITS | Clinical Summary ---
Author Organization [facility] Address [address] [place] [address] Care Team Providers Care Ict Sales Representative Name Role Phone Unavailable Primary Care Provider [...]
--- OUTSIDE RECORDS SUMMARY | 2025-05-20 13:47 | XMS_ITS | Clinical Summary ---
Author Organization [facility] Address [address] [place] [address] Care Team Providers Care Campus Administrator Name Role Phone Teresita Brantley MD Primary Care Provider [phone] Source Comments [facility],non-owned Affiliates and Associated Physician Practices is amultiple site organization consisting of ambulatory clinics and hospital sitesin [place], [place] and [place]. This disclosure is being madepursuant to the Care Everywhere program and may not contain all information available regarding this patient. Last updated 18.[facility] Allergies No known active allergies Medications * [...] on file Legal Sex Female 6:00 AM GRAIN I FARMWORKER Gender Identity Not on file Sexual Orientation Not on file Last Filed Vital Signs Vital Sign Reading Time Taken Comments Blood Pressure 114/80 07/12/2023 8:41 AM GRAIN I FARMWORKER Pulse 79 07/12/2023 8:41 AM GRAIN I FARMWORKER Temperature - - Respiratory Rate - - Oxygen Saturation 97% 07/12/2023 8:41 AM GRAIN I FARMWORKER Inhaled Oxygen Concentration - - Weight 79.4 kg (175 lb) 07/12/2023 8:41 AM GRAIN I FARMWORKER Height 160 cm (5' 3) 07/12/2023 8:41 AM GRAIN I FARMWORKER Body Mass Index 31 07/12/2023 8:41 AM GRAIN I FARMWORKER Plan of Treatment Health Maintenance Due Date Last Done Comments MAMMOGRAM 1981 HIV SCREENING 1996 HEPATITIS C SCREENING 06/05/1999 DTAP/TDAP/TD VACCINES (1 - Tdap) 2000 HEPATITIS B VACCINE (1 of 3 - 19+ 3-dose series) 2000 PAP SMEAR 2002 HPV VACCINE (1 - 3-dose SCDM series) 2008 SCREENING FOR DIABETES 07/12/2023 DEPRESSION SCREENING 05/31/2024 [...] to complete this topic Insurance Care Teams Campus Administrator Relationship Specialty Start Date End Date Teresita Brantley MD [address] [place] [address] [phone] PCP - General 10/31/20
--- OUTSIDE RECORDS SUMMARY | 2025-05-20 13:47 | XMS_ITS | Clinical Summary ---
Author Organization [facility] Address [address] [place] [address] Care Team Providers Care District Loss Prevention Manager Name Role Phone Iqra Bonds Primary Care Provider [phone] Allergies No known active allergies Medications aspirin [...] on file Legal Sex Female 2:23 AM CONVEYOR SYSTEM OPERATOR Gender Identity Not on file Sexual Orientation Not on file Last Filed Vital Signs Vital Sign Reading Time Taken Comments Blood Pressure 122/78 04/26/2023 3:05 PM CONVEYOR SYSTEM OPERATOR Pulse 84 04/26/2023 3:05 PM CONVEYOR SYSTEM OPERATOR Temperature 36.9 C (98.5 F) 12/16/2022 8:50 PM CDT Respiratory Rate 16 12/16/2022 8:50 PM CDT Oxygen Saturation 98% 04/26/2023 3:05 PM CONVEYOR SYSTEM OPERATOR Inhaled Oxygen Concentration - - Weight 79.9 kg (176 lb 2.4 oz) 04/26/2023 3:05 P M CONVEYOR SYSTEM OPERATOR Height 160 cm (5' 3) 12/16/2022 5:22 [...] (#1) 2025 Medical Devices Implanted Type Area Team Otr Truck Driver Device Identifier Shelf Expiration Date Model / Serial / Lot Plate Plate Left: Ankle Insurance [facility] ANTHEM ACCESS CHOICE ANTHEM ACCESS CHOICE Care Teams District Loss Prevention Manager Relationship Specialty Start Date End Date Iqra Bonds PA [address] [place] [phone] PCP - General Physician Survey Research Manager 10/09/22
[2025-05-20 13:53] VITALS: BP 112/90; PULSE 119; RESP 18; TEMP 36.4; O2SAT 100
[2025-05-20 14:19] LABS: Hematocrit 41.5 % (37.0-47.0); Hemoglobin 14.4 g/dL (12.0-15.0); Immature Granulocyte Percent A 0.5 % (0-0.5); Lymphocytes Absolute Auto 2.32 K/mm3 (0.9-3.2); Mean Corpuscular HGB Conc 34.7 g/dl (32-36); Mean Corpuscular Hemoglobin 34.0 pg (26-34); Mean Corpuscular Volume 98.1 fl (80-100); Nucleated Red Blood Cells Absolute Auto 0.000 K/mm3 (0.0-0.012); Nucleated Red Blood Cells Perc 0.0 % (0.0-0.2); Platelet Count Result 259 k/mm3 (150-375); Red Blood Count 4.23 M/mm3 (4.2-5.4); White Blood Count 7.6 K/mm3 (4.5-10.0)
[2025-05-20] MEDS: SODIUM CHLORIDE 0.9% IV 500 ML 999 ML IV CONT (14:29)
[2025-05-20 14:33] LABS: INR 1.0; Prothrombin Time 13.0 Seconds (11.1-14.7)
[2025-05-20 14:34] LABS: Partial Thromboplastin Time 25.2 Seconds (22.3-36.8)
--- OUTSIDE RECORDS SUMMARY | 2025-05-20 14:35 | XMS_ITS | Clinical Summary ---
Author Organization [facility] Address [address] [place] [address] Care Team Providers Care Lozenge Maker Name Role Phone Teresita Brantley MD Primary Care Provider [phone] Source Comments [facility],non-owned Affiliates and Associated Physician Practices is amultiple site organization consisting of ambulatory clinics and hospital sitesin [place], [place], [place] and [place]. This disclosure is being madepursuant to the Care Everywhere program and may not contain all information available regarding this patient. Last updated 18.[facility] Allergies No known active allergies Medications * [...] on file Legal Sex Female 6:00 AM TANK WAGON DRIVER Gender Identity Not on file Sexual Orientation Not on file Last Filed Vital Signs Vital Sign Reading Time Taken Comments Blood Pressure 114/80 07/12/2023 8:41 AM TANK WAGON DRIVER Pulse 79 07/12/2023 8:41 AM TANK WAGON DRIVER Temperature - - Respiratory Rate - - Oxygen Saturation 97% 07/12/2023 8:41 AM TANK WAGON DRIVER Inhaled Oxygen Concentration - - Weight 79.4 kg (175 lb) 07/12/2023 8:41 AM TANK WAGON DRIVER Height 160 cm (5' 3) 07/12/2023 8:41 AM TANK WAGON DRIVER Body Mass Index 31 07/12/2023 8:41 AM TANK WAGON DRIVER Plan of Treatment Health Maintenance Due Date [...] to complete this topic Insurance Care Teams Lozenge Maker Relationship Specialty Start Date End Date Teresita Brantley MD [address] [place] [address] [phone] PCP - General 10/31/20
--- OUTSIDE RECORDS SUMMARY | 2025-05-20 14:35 | XMS_ITS | Clinical Summary ---
Author Organization [facility] Address [address] [place] [address] Care Team Providers Care Advertising Teacher Name Role Phone Iqra Bonds Primary Care Provider [phone] Allergies No known active allergies Medications aspirin [...] on file Legal Sex Female 2:23 AM SHINE WORKER Gender Identity Not on file Sexual Orientation Not on file Last Filed Vital Signs Vital Sign Reading Time Taken Comments Blood Pressure 122/78 04/26/2023 3:05 PM SHINE WORKER Pulse 84 04/26/2023 3:05 PM SHINE WORKER Temperature 36.9 C (98.5 F) 12/16/2022 8:50 PM CDT Respiratory Rate 16 12/16/2022 8:50 PM CDT Oxygen Saturation 98% 04/26/2023 3:05 PM SHINE WORKER Inhaled Oxygen Concentration - - Weight 79.9 kg (176 lb 2.4 oz) 04/26/2023 3:05 P M SHINE WORKER Height 160 cm (5' 3) 12/16/2022 5:22 [...] (#1) 2025 Medical Devices Implanted Type Area Insert Operator Device Identifier Shelf Expiration Date Model / Serial / Lot Plate Plate Left: Ankle Insurance [facility] ANTHEM ACCESS CHOICE ANTHEM ACCESS CHOICE Care Teams Advertising Teacher Relationship Specialty Start Date End Date Iqra Bonds PA [address] [place] [phone] PCP - General Physician Miter Grinder Operator 10/09/22
--- OUTSIDE RECORDS SUMMARY | 2025-05-20 14:35 | XMS_ITS | Clinical Summary ---
Author Organization [facility] Address [address] [place] [address] Care Team Providers Care Tank Systems Maintainer Name Role Phone Unavailable Primary Care Provider [...]
[2025-05-20 15:28] LABS: Alanine Aminotransferase 33 U/L (6-35); Albumin Level 3.6 g/dL (3.5-5.1); Alkaline Phosphatase 73 U/L (38-126); Anion Gap 6 mmol/L (4-12); Aspartate Amino Transferase 22 U/L (14-36); Bilirubin,Total 0.5 mg/dL (0.2-1.3); Blood Urea Nitrogen 14 mg/dL (7-17); Calcium 8.8 mg/dL (8.4-10.2); Carbon Dioxide 23 mmol/L (22-30); Chloride 108 mmol/L (98-107); Estimated Glomerular Filt Rate 53; Glucose 97 mg/dL (65-110); Potassium 3.8 mmol/L (3.4-5.0); Sodium 137 mmol/L (137-145); Total Protein 6.3 g/dL (6.3-8.2)
--- NOTE | 2025-05-20 16:17 | ED.GIBLEED ---
HPI - GI Bleed General Chief complaint: GI Bleed Stated complaint: Gi Bleed Time Seen by Provider: 05/20/25 14:12 Source: patient Mode of arrival: ambulatory Limitations: no limitations History of Present Illness HPI Narrative: This is a 44 year old female that presents to the ER for bright red blood per rectum. Reports 3 episodes of this today. Reports a colonoscopy earlier this week at [place] which showed colitis, diverticula. Reports some abdominal cramping. Denies fevers. Related Data Home Medications ?Medication ?Instructions ?Recorded ?Confirmed ?Last Taken ?Type atorvastatin 40 mg tablet 40 mg PO QPM 08/15/24 01/27/25 Unknown History prazosin 2 mg capsule 2 mg PO QPM 08/15/24 01/27/25 Unknown History famotidine 20 mg tablet 20 mg PO DAILY 10/10/24 01/27/25 Unknown History venlafaxine 75 mg capsule,extended 75 mg PO QPM 10/10/24 01/27/25 Unknown History release 24 hr quetiapine 150 mg tablet,extended 150 mg PO HS 01/27/25 01/27/25 Unknown History release 24 hr quetiapine 50 mg tablet,extended 50 mg PO HS 01/27/25 01/27/25 Unknown History release 24 hr Allergies Allergy/AdvReac Type Severity Reaction Status Date / Time No Known Allergies Allergy Verified 04/22/25 17:38 Review of Systems Review of Systems: All systems reviewed & are unremarkable except as noted in HPI and below PMFSH Past Medical History Medical History Hx of migraines Depression Chronic pain syndrome Anxiety Stomach ulcer GERD (gastroesophageal reflux disease) Anxiety Surgical History Surgical History Hx laparoscopic cholecystectomy History of foot surgery left 2020 Family History Family History Father Heart attack Unknown Diabetes mellitus Mother Suicide Other Diabetes mellitus Hypertension Social History Social History Smoking packs per day: 0.75 Smoking cigarettes per day: 15.0 Years smoked: 22 Smoking pack-years: 16.50 Smoking status: Current every day smoker Tobacco type: cigarettes Second hand tobacco smoke exposure: No Alcohol intake: current Drinks per week: 1 Substance use: never Substance use type: does not use and marijuana Lack of Transportation: No Lack of Food: Never True Current Housing: I Have Housing Concerned About Future Housing: No Difficulty Paying Gas/Electric Bills: No Difficulty Paying for Meds: No Currently Unemployed: No Education: High School Diploma/GED Difficulty w/ Childcare or Family Care: No Living arrangements: with family Occupation/Education: unemployed Gender identity (if verbalized by the patient): Female Spiritual care concerns: No Exam Narrative: GENERAL: Well-appearing, well-nourished, and in no acute distress. HEAD: Normocephalic, atraumatic. EYES: EOMI. CHEST: Clear to auscultation. No respiratory distress. No wheezes rales or rhonchi HEART: Regular rate and rhythm. No murmur heard. Normal peripheral pulses. ABDOMEN: Soft, nontender, nondistended, normal active bowel sounds. EXTREMITIES: Normal range of motion. No edema. SKIN: Warm, dry, no rash. NEURO: No focal deficits. Alert and oriented x3. PSYCH: Normal mood and affect Course Consultations Gastroenterology: I have discussed the care of this patient with the following provider: Dr. Micaela Mckeon Vital Signs Vital signs: Vital Signs Temperature 97.6 F 05/20/25 13:53 Pulse Rate 119 H 05/20/25 13:53 Respiratory Rate 18 05/20/25 13:53 Blood Pressure 112/90 05/20/25 13:53 Pulse Oximetry 100 05/20/25 13:53 Oxygen Delivery Room Air 05/20/25 13:53 Temperature 97.6 F 05/20/25 13:53 Pulse Rate 119 H 05/20/25 13:53 Respiratory Rate 18 05/20/25 13:53 Blood Pressure 112/90 05/20/25 13:53 Pulse Oximetry 100 05/20/25 13:53 Oxygen Delivery Room Air 05/20/25 13:53 MDM MDM Narrative Medical decision making narrative: Patient presents to the ER for abdominal pain, bloody diarrhea. Recent colonoscopy. She is afebrile and nontoxic appearing. Tachycardic upon arrival, this normalized with IV fluids. CBC without leukocytosis. Metabolic panel with mild elevation in creatinine. Patient hydrated with IV fluids in the ER. CT abdomen and pelvis showing findings of colitis. Spoke with patient's GI physician, will be started on oral antibiotics. Follow up in clinic Differential Diagnosis Differential Diagnosis: Colitis, diverticulitis Lab Data MDM Lab Attestation statement: I personally reviewed the patient's lab results. 05/20/25 14:11 05/20/25 15:13 Labs: Lab Results 05/20/25 05/20/25 Range/Units 14:11 15:13 WBC 7.6 (4.5-10.0) K/mm3 RBC 4.23 (4.2-5.4) M/mm3 Hgb 14.4 (12.0-15.0) g/dL Hct 41.5 (37.0-47.0) % MCV 98.1 (80-100) fl MCH 34.0 (26-34) pg MCHC 34.7 (32-36) g/dl RDW 13.3 (11.5-14.5) % Plt Count 259 (150-375) k/mm3 MPV 8.4 (7.4-10.4) fl Immature Gran % (Auto) 0.5 (0-0.5) % Neut % (Auto) 61.9 (45.5-73.1) % Lymph % (Auto) 30.6 (18.3-44.2) % [place] % (Auto) 5.3 (2.6-8.5) % Eos % (Auto) 1.3 (0-4.4) % Baso % (Auto) 0.4 (0.2-1.2) % Lymph # (Auto) 2.32 (0.9-3.2) K/mm3 [place] # (Auto) 0.4 (0.1-0.6) K/mm3 Eos # (Auto) 0.1 (0-0.3) K/mm3 Baso # (Auto) 0.0 (0.0-0.1) K/mm3 Abs Immat Gran (auto) 0.04 H (0.00-0.031) K/mm3 Absolute Neuts (auto) 4.7 (1.3-6.7) K/mm3 Absolute Nucleated RBC 0.000 (0.0-0.012) K/mm3 Nucleated RBC % 0.0 (0.0-0.2) % PT 13.0 (11.1-14.7) Seconds INR 1.0 APTT 25.2 (22.3-36.8) Seconds Sodium 137 (137-145) mmol/L Potassium 3.8 (3.4-5.0) mmol/L Chloride 108 H (98-107) mmol/L Carbon Dioxide 23 (22-30) mmol/L Anion Gap 6 (4-12) mmol/L BUN 14 (7-17) mg/dL Creatinine 1.13 H (0.7-1.0) mg/dL Estim Creat Clear Calc Not Reportable Estimated GFR 53 L (59 - ) Glucose 97 (65-110) mg/dL Calcium 8.8 (8.4-10.2) mg/dL Total Bilirubin 0.5 (0.2-1.3) mg/dL AST 22 (14-36) U/L ALT 33 (6-35) U/L Alkaline Phosphatase 73 (38-126) U/L Total Protein 6.3 (6.3-8.2) g/dL Albumin 3.6 (3.5-5.1) g/dL Blood Type O Positive Antibody Screen Negative Imaging Data Radiologist's impression: ITS Impressions Abdomen/Pelvis CT 05/20/25 16:23 IMPRESSION: 1. Evidence of colitis involving proximal colon similar to multiple prior imaging studies tension above. 2. No free fluid. No free air. 3. Hepatomegaly. Critical Care Time Critical Care Time Critical Care Time: No Discharge Plan Discharge Clinical Impression: Colitis Patient Disposition: Home Condition: Stable Instructions: Antibiotic Form, Colitis (ED) Additional Instructions: Return to the ER if you experience fever, abdominal pain with nausea and vomiting, you are unable to keep down liquids or solids, worsening bleeding or any other symptoms that are concerning to you Remain well hydrated. Take oral antibiotics as prescribed Follow up with your pump installer Patient Language: Turkmen Prescriptions: New metronidazole 500 mg tablet 500 mg PO Q12H 5 Days Qty: 10 0RF cefdinir 300 mg capsule 300 mg PO Q12H 5 Days Qty: 10 0RF No Action famotidine 20 mg tablet 20 mg PO DAILY venlafaxine 75 mg capsule,extended release 24hr 75 mg PO QPM atorvastatin 40 mg tablet 40 mg PO QPM prazosin 2 mg capsule 2 mg PO QPM dicyclomine 20 mg tablet 20 mg PO QID PRN (Reason: abdominal pain) Qty: 20 0RF quetiapine 150 mg tablet extended release 24 hr 150 mg PO HS quetiapine 50 mg tablet extended release 24 hr 50 mg PO HS metronidazole 500 mg tablet 500 mg PO Q8H 7 Days Qty: 21 0RF ciprofloxacin HCl 500 mg tablet 500 mg PO Q12H 7 Days Qty: 14 0RF dicyclomine 20 mg tablet 20 mg PO TID PRN (Reason: Abdominal Discomfort) Qty: 15 0RF ondansetron 4 mg tablet,disintegrating 4 mg PO Q8H PRN (Reason: nausea and vomiting) Qty: 15 0RF Follow-up/Referrals: PHYSICIAN,SUPERVISOR CIGAR PROCESSING [Primary Care Provider, Internal Medicine]
== END 2025-05-20 17:49 | disposition home or self-care (01) ==
PROVIDERS: Student in an Organized Health Care Education/Training Program; Emergency Provider Physician Assistant
DX: K52.9 Noninfective gastroenteritis and colitis, unspecified (principal); K21.9 Gastro-esophageal reflux disease without esophagitis; G89.4 Chronic pain syndrome; F41.9 Anxiety disorder, unspecified; F32.A Depression, unspecified; F17.210 Nicotine dependence, cigarettes, uncomplicated; Z90.49 Acquired absence of other specified parts of digestive tract; R16.0 Hepatomegaly, not elsewhere classified
CPT/HCPCS: 36415; 74177; 80053; 85025; 85610; 85730; 86850; 86900; 86901; 99284; J7040; Q9967

== ENCOUNTER 2025-05-25 19:43 | Emergency (ER) | payer BC, SELFPAY ==
[2025-05-25] VITALS (20 sets, daily range): BP systolic 117–162; BP diastolic 59–104; PULSE 85–100; RESP 10–22; TEMP 37.1; O2SAT 97–100
--- NOTE | ~2025-05-25 | CT_ITS ---
EXAMINATION: CT abdomen pelvis w con DATE: 05/25/2025 22:46 INDICATION: Colitis presenting with multiple episodes of bloody stools TECHNIQUE: Computed tomography (CT) of the abdomen and pelvis was performed with 100 mL Omnipaque-350 intravenous contrast. Automated exposure control and iterative reconstruction technique were employed. The dose-length product was 725.80 mGy-cm. COMPARISON: CT studies dated 05/20/2025, 04/22/2025 and 03/08/2021 FINDINGS: Lung bases are clear. Heart size is normal. No pericardial or pleural effusion. Cholecystectomy clips the gallbladder fossa. Liver, spleen, pancreas, bilateral adrenal glands and kidneys are normal. Chronic fatty infiltration of the wall the proximal colon which could be related to body habitus or sequela of chronic colitis. There is additional chronic wall thickening in the descending and sigmoid colon which is between fat and fluid density with similar differential but cannot exclude recurrent mild colitis. Small bowel and appendix are normal. Bladder, anteverted uterus and bilateral adnexa are unremarkable. No free intraperitoneal gas or fluid. No pathologically enlarged abdominal or pelvic lymphadenopathy. Mild lumbar spondylosis. Chronic bilateral L5 pars intra- articular is defects without spondylolisthesis. IMPRESSION: 1. Chronic diffuse colonic wall thickening with intramural fat the proximal colon and density of between fat and fluid in the more distal colon. This could be due to body habitus or chronic and potentially superimposed acute recurrent colitis. Reviewed, dictated and finalized at location A. UTIVE TEAM LEADER IMPRESSION: 1. Chronic diffuse colonic wall thickening with intramural fat the proximal col on and density of between fat and fluid in the more distal colon. This could be due to body habitus or chronic and potentially superimposed acute recurrent co litis.
--- OUTSIDE RECORDS SUMMARY | 2025-05-25 19:45 | XMS_ITS | Clinical Summary ---
Author Organization [facility] Address [address] [place] [address] Care Team Providers Care Assembler [employer] Name Role Phone Iqra Bonds Primary Care Provider [phone] Allergies No known active allergies Medications aspirin [...] on file Legal Sex Female 2:23 AM WARDROBE IMAGE CONSULTANT Gender Identity Not on file Sexual Orientation Not on file Last Filed Vital Signs Vital Sign Reading Time Taken Comments Blood Pressure 122/78 04/26/2023 3:05 PM WARDROBE IMAGE CONSULTANT Pulse 84 04/26/2023 3:05 PM WARDROBE IMAGE CONSULTANT Temperature 36.9 C (98.5 F) 12/16/2022 8:50 PM CDT Respiratory Rate 16 12/16/2022 8:50 PM CDT Oxygen Saturation 98% 04/26/2023 3:05 PM WARDROBE IMAGE CONSULTANT Inhaled Oxygen Concentration - - Weight 79.9 kg (176 lb 2.4 oz) 04/26/2023 3:05 P M WARDROBE IMAGE CONSULTANT Height 160 cm (5' 3) 12/16/2022 5:22 [...] (#1) 2025 Medical Devices Implanted Type Area Electric Engine Mechanic Device Identifier Shelf Expiration Date Model / Serial / Lot Plate Plate Left: Ankle Insurance [facility] ANTHEM ACCESS CHOICE ANTHEM ACCESS CHOICE Care Teams Assembler [employer]unglasses Relationship Specialty Start Date End Date Iqra Bonds PA [address] [place] [id number] PCP - General Physician Website Project Manager 10/09/22
--- OUTSIDE RECORDS SUMMARY | 2025-05-25 19:45 | XMS_ITS | Clinical Summary ---
Author Organization [facility] Address [address] [place] [address] Care Team Providers Care Special Needs Tutor Name Role Phone Unavailable Primary Care Provider [...]
--- OUTSIDE RECORDS SUMMARY | 2025-05-25 19:45 | XMS_ITS | Clinical Summary ---
Author Organization [facility] [employer] Address [address] [place] [address] Care Team Providers Care Network Security Administrator Name Role Phone Teresita Brantley MD Primary Care Provider [phone] Source Comments [facility] [employer]non-owned Affiliates and Associated Physician Practices is amultiple site organization consisting of ambulatory clinics and hospital sitesin [place], [place], [place] and [place]. This disclosure is being madepursuant to the Care Everywhere program and may not contain all information available regarding this patient. Last updated 18.[facility] [employer] Allergies No known active allergies Medications * [...] on file Legal Sex Female 6:00 AM APPLICATION SUPPORT LEAD Gender Identity Not on file Sexual Orientation Not on file Last Filed Vital Signs Vital Sign Reading Time Taken Comments Blood Pressure 114/80 07/12/2023 8:41 AM APPLICATION SUPPORT LEAD Pulse 79 07/12/2023 8:41 AM APPLICATION SUPPORT LEAD Temperature - - Respiratory Rate - - Oxygen Saturation 97% 07/12/2023 8:41 AM APPLICATION SUPPORT LEAD Inhaled Oxygen Concentration - - Weight 79.4 kg (175 lb) 07/12/2023 8:41 AM APPLICATION SUPPORT LEAD Height 160 cm (5' 3) 07/12/2023 8:41 AM APPLICATION SUPPORT LEAD Body Mass Index 31 07/12/2023 8:41 AM APPLICATION SUPPORT LEAD Plan of Treatment Health Maintenance Due Date [...] to complete this topic Insurance Care Teams Network Security Administrator Relationship Specialty Start Date End Date Teresita Brantley MD [address] [place] [phone] PCP - General 10/31/20
[2025-05-25 21:38] LABS: Hematocrit 41.4 % (37.0-47.0); Hemoglobin 14.2 g/dL (12.0-15.0); Immature Granulocyte Percent A 0.3 % (0-0.5); Lymphocytes Absolute Auto 3.19 K/mm3 (0.9-3.2); Mean Corpuscular HGB Conc 34.3 g/dl (32-36); Mean Corpuscular Hemoglobin 33.7 pg (26-34); Mean Corpuscular Volume 98.3 fl (80-100); Nucleated Red Blood Cells Absolute Auto 0.000 K/mm3 (0.0-0.012); Nucleated Red Blood Cells Perc 0.0 % (0.0-0.2); Platelet Count Result 306 k/mm3 (150-375); Red Blood Count 4.21 M/mm3 (4.2-5.4); White Blood Count 10.6 K/mm3 (4.5-10.0)
[2025-05-25 21:48] LABS: Alanine Aminotransferase 46 U/L (6-35); Albumin Level 4.1 g/dL (3.5-5.1); Alkaline Phosphatase 83 U/L (38-126); Anion Gap 7 mmol/L (4-12); Aspartate Amino Transferase 33 U/L (14-36); Bilirubin,Total 0.6 mg/dL (0.2-1.3); Blood Urea Nitrogen 10 mg/dL (7-17); Calcium 8.4 mg/dL (8.4-10.2); Carbon Dioxide 25 mmol/L (22-30); Chloride 106 mmol/L (98-107); Estimated CRCL calculation 66 ml/min; Estimated Glomerular Filt Rate 58; Glucose 96 mg/dL (65-110); Potassium 3.5 mmol/L (3.4-5.0); Sodium 138 mmol/L (137-145); Total Protein 6.9 g/dL (6.3-8.2)
[2025-05-25 21:59] LABS: INR 1.1; Prothrombin Time 13.9 Seconds (11.1-14.7)
[2025-05-25 22:00] LABS: Partial Thromboplastin Time 27.3 Seconds (22.3-36.8)
--- NOTE | 2025-05-25 22:26 | ED.GIBLEED ---
HPI - GI Bleed General Chief complaint: GI Bleed Stated complaint: blood in stool Time Seen by Provider: 05/25/25 22:22 Source: patient and family () Mode of arrival: ambulatory Limitations: no limitations History of Present Illness HPI Narrative: Patient presents with bright red blood per rectum and bloody stool. Seen here recently for GI issues - diagnosed with diverticulitis versus diverticulosis per triage, possibly colitis. Prescribed antibiotics which she has been taking. Not taking anything for pain. Sees GI Della Bravo at [facility]. Had her 2nd colonoscopy recently on 05/14. Biopsies are pending. Regularly on aspirin but not on anticoagulation. Passing pure blood , going to the bathroom approximately 30 times in 1 day. Low abdominal cramps. Temperature 102.7 at home. Using Zofran for nausea. While in the ED has developed leg cramps/aches. Related Data Home Medications ?Medication ?Instructions ?Recorded ?Confirmed ?Last Taken ?Type atorvastatin 40 mg tablet 40 mg PO QPM 08/15/24 01/27/25 Unknown History prazosin 2 mg capsule 2 mg PO QPM 08/15/24 01/27/25 Unknown History famotidine 20 mg tablet 20 mg PO DAILY 10/10/24 01/27/25 Unknown History venlafaxine 75 mg capsule,extended 75 mg PO QPM 10/10/24 01/27/25 Unknown History release 24 hr quetiapine 150 mg tablet,extended 150 mg PO HS 01/27/25 01/27/25 Unknown History release 24 hr quetiapine 50 mg tablet,extended 50 mg PO HS 01/27/25 01/27/25 Unknown History release 24 hr Allergies Allergy/AdvReac Type Severity Reaction Status Date / Time UNKNOWN ANTIBIOTIC Allergy Mild Nausea and Uncoded 05/25/25 20:18 Vomiting PMFSH Past Medical History Medical History Hx of migraines Depression Chronic pain syndrome Anxiety Stomach ulcer GERD (gastroesophageal reflux disease) Anxiety Surgical History Surgical History (Updated 05/27/25 @ 05:07 by Barbara Ibrahim MD) History of colonoscopy Della Bravo, [facility] Hx laparoscopic cholecystectomy History of foot surgery left 2020 Family History Family History Father Heart attack Unknown Diabetes mellitus Mother Suicide Other Diabetes mellitus Hypertension Social History Social History Social History: Smoking packs per day: 0.75 Smoking cigarettes per day: 15.0 Years smoked: 22 Smoking pack-years: 16.50 Smoking status: Current every day smoker Tobacco type: cigarettes Second hand tobacco smoke exposure: No Alcohol intake: current Drinks per week: 1 Substance use: never Substance use type: does not use and marijuana Lack of Transportation: No Lack of Food: Never True Current Housing: I Have Housing Concerned About Future Housing: No Difficulty Paying Gas/Electric Bills: No Difficulty Paying for Meds: No Currently Unemployed: No Education: High School Diploma/GED Difficulty w/ Childcare or Family Care: No Living arrangements: with family Additional living arrangements comments: spouse () Occupation/Education: unemployed Gender identity (if verbalized by the patient): Female Spiritual care concerns: No Exam Narrative: GENERAL: Well-appearing, well-nourished, and in no acute distress. HEAD: Normocephalic, atraumatic. EYES: Non injected, non icteric ENT: Nares clear, no rhinorrhea or epistaxis. Gross auditory acuity intact. NECK: Supple. No meningismus. CHEST: Speaking in full sentences. No respiratory distress. HEART: Regular rate and rhythm. . ABDOMEN: Soft, nondistended. Mild ttp in RLQ and LLQ. No rigidity or guarding. Not peritoneal DESTINEY: performed with patient's present. scant amount of residual blood around rectum. non thrombosed external hemorrhoids. normal rectal tone. Blood/hematochezia on gloved lubricated finger. fobt/guiaic positive x2 windows on bedside assay. EXTREMITIES: Normal range of motion. No lower extremity edema. SKIN: Warm, dry, no rash. NEURO: No focal deficits. Alert and oriented. Answering questions. Following commands. Normal speech without aphasia or dysarthria. PSYCH: Normal mood and affect. Course Vital Signs Vital signs: Vital Signs Temperature 98.8 F 05/25/25 20:08 Pulse Rate 100 05/25/25 20:08 Respiratory Rate 20 05/25/25 20:08 Blood Pressure 141/98 H 05/25/25 20:08 Pulse Oximetry 99 05/25/25 20:08 Oxygen Delivery Room Air 05/25/25 20:08 Temperature 98.8 F 05/25/25 20:08 Pulse Rate 82 05/26/25 02:16 Respiratory Rate 11 L 05/26/25 02:16 Blood Pressure 128/77 05/26/25 02:16 Pulse Oximetry 99 05/26/25 02:16 Oxygen Delivery Room Air 05/25/25 20:08 MDM MDM Narrative Medical decision making narrative: The patient is a 44 year old who comes to the emergency department with rectal bleeding / bloody stool. Nearly 30 times in 1 day. Associated with low abdominal pain/cramping. In the ED they are initially afebrile and hemodynamically stable without tachycardia or hypotension, in fact, mild hypertension. Based on history and physical, suspect lower GI bleed so will go ahead and order CBC, CMP, coagulation studies, lactate, and type and screen. CT abdomen and pelvis is ordered. Also Zofran and morphine. Patient had been taking metronidazole and cefdinir at home. It does not appear she had been given Bentyl. Abdomen/Pelvis CT 05/20/25 16:23 IMPRESSION: 1. Evidence of colitis involving proximal colon similar to multiple prior imaging studies tension above. 2. No free fluid. No free air. 3. Hepatomegaly. Initial CBC with mild leukocytosis but otherwise patient is not anemic. Repeat 4 hour rate H&H is ordered. Isolated ALT mild elevation which has previously been seen. Patient's creatinine is slightly elevated from baseline although slightly improved from most recent. Lactic acid normal. Magnesium is low normal. Given she is having muscle aches/cramps, will replete. UA with abnormal specific gravity and some blood but otherwise without signs of infection. === Operative Note from colonoscopy performed by Micaela Mckeon was obtained from Dejuan, performed 05/14/25. Findings: mild colitis, diverticulosis, hemorrhoids. Pathology report from biopsies obtained during this resulted as ascending colon biopsy: Colonic mucosa with no significant histopathologic changes. Sigmoid colon bx: Colonic mucosa with no significant histopathologic changes. = Repeat H/H with a drop of 0.5. Still not anemic. Patient reassessed. Successfully PO challenging. Extensively discussed her work up including labs and imaging. Advised she continue the antibiotics but that needs pain management. Discussed the use of Bentyl as well as OTCs and, for breakthrough pain, narcotics. Discussed risks/benefits/alternatives. Advised follow up with patient's gi. Verifies understanding and amenable with the plan. Stable for discharge. Differential Diagnosis Differential Diagnosis: My differential diagnosis at this time is diverticulosis versus angiodysplasia versus Meckel's diverticulum. Colon cancer is also possible. Ischemic bowel or anal fissure. IBD/infectious diarrhea unlikely. Possibly hemorrhoids though less likely given degree of bleeding. Differential Diagnostic considerations for GI bleeding include PUD, varices, diverticular bleed, ischemic colitis, Meckel?s diverticulum, AV malformation, radiation colitis, infectious colitis, inflammatory colitis, hemorrhoids, Holly-Jackson syndrome, gastrointestinal hemorrhage, melena, anal fissure.? Medical Records I have reviewed the following patient records and this information was taken into consideration when formulating the assessment and plan.: previous labs and previous ER visits Lab Data MDM Lab Attestation statement: I personally reviewed the patient's lab results. 05/26/25 01:31 05/25/25 21:32 Labs: Lab Results 05/25/25 05/25/25 05/25/25 Range/Units 21:32 22:31 23:53 WBC 10.6 H (4.5-10.0) K/mm3 RBC 4.21 (4.2-5.4) M/mm3 Hgb 14.2 (12.0-15.0) g/dL Hct 41.4 (37.0-47.0) % MCV 98.3 (80-100) fl MCH 33.7 (26-34) pg MCHC 34.3 (32-36) g/dl RDW 13.4 (11.5-14.5) % Plt Count 306 (150-375) k/mm3 MPV 8.4 (7.4-10.4) fl Immature Gran % (Auto) 0.3 (0-0.5) % Neut % (Auto) 61.3 (45.5-73.1) % Lymph % (Auto) 30.2 (18.3-44.2) % Stevens % (Auto) 6.7 (2.6-8.5) % Eos % (Auto) 1.0 (0-4.4) % Baso % (Auto) 0.5 (0.2-1.2) % Lymph # (Auto) 3.19 (0.9-3.2) K/mm3 Stevens # (Auto) 0.7 H (0.1-0.6) K/mm3 Eos # (Auto) 0.1 (0-0.3) K/mm3 Baso # (Auto) 0.1 (0.0-0.1) K/mm3 Abs Immat Gran (auto) 0.03 (0.00-0.031) K/mm3 Absolute Neuts (auto) 6.5 (1.3-6.7) K/mm3 Absolute Nucleated RBC 0.000 (0.0-0.012) K/mm3 Nucleated RBC % 0.0 (0.0-0.2) % PT 13.9 (11.1-14.7) Seconds INR 1.1 APTT 27.3 (22.3-36.8) Seconds Sodium 138 (137-145) mmol/L Potassium 3.5 (3.4-5.0) mmol/L Chloride 106 (98-107) mmol/L Carbon Dioxide 25 (22-30) mmol/L Anion Gap 7 (4-12) mmol/L BUN 10 (7-17) mg/dL Creatinine 1.04 H (0.7-1.0) mg/dL Estim Creat Clear Calc 66 ml/min Estimated GFR 58 L (59 - ) Glucose 96 (65-110) mg/dL Lactic Acid 1.2 (0.7-2.0) mmol/L Calcium 8.4 (8.4-10.2) mg/dL Magnesium 1.6 (1.6-2.3) mg/dL Total Bilirubin 0.6 (0.2-1.3) mg/dL AST 33 (14-36) U/L ALT 46 H (6-35) U/L Alkaline Phosphatase 83 (38-126) U/L Total Protein 6.9 (6.3-8.2) g/dL Albumin 4.1 (3.5-5.1) g/dL Urine Color Yellow (Yellow) Urine Appearance Clear (Clear) Urine pH 5.5 (5.0-9.0) Ur Specific [place] > 1.045 H (1.001-1.035) Urine Protein Trace (Negative) mg/dL Urine Glucose (UA) Negative (Negative) mg/dL Urine Ketones Negative (Negative) mg/dL Ur Blood (Man) 1+ H (Negative) Urine Nitrate Negative (Negative) Urine Bilirubin Negative (Negative) Urine Urobilinogen 0.2 (<2.0) mg/dL Leukocyte Esterase Rfl Negative (Negative) RINKU/UL Urine RBC 0-2 (0-2) /hpf Urine WBC 0-3 (0-3) /hpf Ur Squamous Epith Cells None seen (Few) /hpf Urine Bacteria None seen (None) /hpf Urine Casts ---- POC Urine HCG, Qual (Negative) Blood Type O Positive Antibody Screen Negative 05/25/25 05/26/25 Range/Units 23:58 01:31 WBC (4.5-10.0) K/mm3 RBC (4.2-5.4) M/mm3 Hgb 13.7 (12.0-15.0) g/dL Hct 39.6 (37.0-47.0) % MCV (80-100) fl MCH (26-34) pg MCHC (32-36) g/dl RDW (11.5-14.5) % Plt Count (150-375) k/mm3 MPV (7.4-10.4) fl Immature Gran % (Auto) (0-0.5) % Neut % (Auto) (45.5-73.1) % Lymph % (Auto) (18.3-44.2) % Stevens % (Auto) (2.6-8.5) % Eos % (Auto) (0-4.4) % Baso % (Auto) (0.2-1.2) % Lymph # (Auto) (0.9-3.2) K/mm3 Stevens # (Auto) (0.1-0.6) K/mm3 Eos # (Auto) (0-0.3) K/mm3 Baso # (Auto) (0.0-0.1) K/mm3 Abs Immat Gran (auto) (0.00-0.031) K/mm3 Absolute Neuts (auto) (1.3-6.7) K/mm3 Absolute Nucleated RBC (0.0-0.012) K/mm3 Nucleated RBC % (0.0-0.2) % PT (11.1-14.7) Seconds INR APTT (22.3-36.8) Seconds Sodium (137-145) mmol/L Potassium (3.4-5.0) mmol/L Chloride (98-107) mmol/L Carbon Dioxide (22-30) mmol/L Anion Gap (4-12) mmol/L BUN (7-17) mg/dL Creatinine (0.7-1.0) mg/dL Estim Creat Clear Calc ml/min Estimated GFR (59 - ) Glucose (65-110) mg/dL Lactic Acid (0.7-2.0) mmol/L Calcium (8.4-10.2) mg/dL Magnesium (1.6-2.3) mg/dL Total Bilirubin (0.2-1.3) mg/dL AST (14-36) U/L ALT (6-35) U/L Alkaline Phosphatase (38-126) U/L Total Protein (6.3-8.2) g/dL Albumin (3.5-5.1) g/dL Urine Color (Yellow) Urine Appearance (Clear) Urine pH (5.0-9.0) Ur Specific [place] (1.001-1.035) Urine Protein (Negative) mg/dL Urine Glucose (UA) (Negative) mg/dL Urine Ketones (Negative) mg/dL Ur Blood (Man) (Negative) Urine Nitrate (Negative) Urine Bilirubin (Negative) Urine Urobilinogen (<2.0) mg/dL Leukocyte Esterase Rfl (Negative) RINKU/UL Urine RBC (0-2) /hpf Urine WBC (0-3) /hpf Ur Squamous Epith Cells (Few) /hpf Urine Bacteria (None) /hpf Urine Casts POC Urine HCG, Qual Negative (Negative) Blood Type Antibody Screen Imaging Data Radiologist's impression: CT Abd & Pelvis Stat rad: Comparison to 05/20/2025. No signs of acute appendicitis. Bowel loops are nondilated. There is mild thickening of the wall of the entire colon suggesting mild colitis. Areas of fat deposition along the right colonic wall suggest acute or chronic process. No pneumoperitoneum, free fluid or abscess is seen. Previous cholecystectomy. No biliary duct dilation or choledocholithiasis. The liver is enlarged measuring 10 cm craniocaudad. No focal liver lesion is seen. The pancreas, spleen, adrenal glands, and kidneys unremarkable. The aorta is mildly calcified but nondilated. The uterus adnexa in urinary bladder within normal limits. 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 There are moderate degenerative changes throughout the remainder of the spine. No incidental findings. Discharge Plan Discharge Clinical Impression: Colitis, BRBPR (bright red blood per rectum), Bloody stool, Hepatomegaly Patient Disposition: Home Condition: Stable Instructions: Antibiotic Form, Gastrointestinal Bleeding (ED), Rectal Bleeding (ED), Narcotic Safety (ED), Colitis (ED) Additional Instructions: As we discussed, continue taking the antibiotics as prescribed. You can use the Bentyl/dicyclomine as it works on the smooth muscle of the GI tract. Acetaminophen/Tylenol (maximum 4000 mg per day) is safe to take with NSAIDs (ibuprofen/Motrin) for pain relief. For breakthrough pain, short course of opiate/narcotic medications have prescribed as well. Follow-up with your surgical clinical reviewer/surgeon who performed your colonoscopy for official results and to discuss next steps regarding your episodes of colitis and other GI issues. Return to the emergency department any new or worsening symptoms such as intractable pain, intractable nausea/vomiting, fever >100.4F not responding to medications, passing out/nearly fainting, etc. if you do not have a primary care physician, the name of the doctors listed below. If you need a new GI doctor, the name of one is listed below. Patient Language: Yakut Prescriptions: New ondansetron 4 mg tablet,disintegrating 4 mg PO Q8H PRN (Reason: nausea and vomiting) Qty: 7 0RF ibuprofen 200 mg capsule 600 mg PO Q8H PRN (Reason: fever or pain) Qty: 30 0RF acetaminophen 500 mg tablet 1,000 mg PO Q6H PRN (Reason: fever or pain) Qty: 30 0RF dicyclomine 10 mg capsule 10 mg PO BID PRN (Reason: abdominal pain) Qty: 20 0RF oxycodone 5 mg tablet 5 mg PO Q8H PRN (Reason: pain) Qty: 7 0RF No Action famotidine 20 mg tablet 20 mg PO DAILY venlafaxine 75 mg capsule,extended release 24hr 75 mg PO QPM atorvastatin 40 mg tablet 40 mg PO QPM prazosin 2 mg capsule 2 mg PO QPM dicyclomine 20 mg tablet 20 mg PO QID PRN (Reason: abdominal pain) Qty: 20 0RF quetiapine 150 mg tablet extended release 24 hr 150 mg PO HS quetiapine 50 mg tablet extended release 24 hr 50 mg PO HS metronidazole 500 mg tablet 500 mg PO Q12H 5 Days Qty: 10 0RF cefdinir 300 mg capsule 300 mg PO Q12H 5 Days Qty: 10 0RF metronidazole 500 mg tablet 500 mg PO Q8H 7 Days Qty: 21 0RF ciprofloxacin HCl 500 mg tablet 500 mg PO Q12H 7 Days Qty: 14 0RF dicyclomine 20 mg tablet 20 mg PO TID PRN (Reason: Abdominal Discomfort) Qty: 15 0RF ondansetron 4 mg tablet,disintegrating 4 mg PO Q8H PRN (Reason: nausea and vomiting) Qty: 15 0RF Follow-up/Referrals: Evens Aburto MD [Physician, Gastroenterology] PHYSICIAN,YOUTH PROGRAM DIRECTOR [Primary Care Provider, Internal Medicine] Jose Alfredo Deluna MD [Physician, Family Practice] Stand Alone Forms: Work/School Release IP Time of Disposition: 01:54
--- OUTSIDE RECORDS SUMMARY | 2025-05-25 22:27 | XMS_ITS | Clinical Summary ---
Author Organization [facility] Address [address] [place] [address] Care Team Providers Care Wiping Cloth Cutter Name Role Phone Unavailable Primary Care Provider [...]
--- OUTSIDE RECORDS SUMMARY | 2025-05-25 22:28 | XMS_ITS | Clinical Summary ---
Author Organization [facility] Address [address] [facility] [place] [address] Care Team Providers Care Cafe Worker Name Role Phone Teresita Brantley MD Primary Care Provider [phone] Source Comments [facility],non-owned Affiliates and Associated Physician Practices is amultiple site organization consisting of ambulatory clinics and hospital sitesin [place], [place], [place] and [place]. This disclosure is being madepursuant to the Care Everywhere program and may not contain all information available regarding this patient. Last updated 18.[facility] Allergies No known active allergies Medications * [...] on file Legal Sex Female 6:00 AM CUSTOMER PROGRAM SPECIALIST Gender Identity Not on file Sexual Orientation Not on file Last Filed Vital Signs Vital Sign Reading Time Taken Comments Blood Pressure 114/80 07/12/2023 8:41 AM CUSTOMER PROGRAM SPECIALIST Pulse 79 07/12/2023 8:41 AM CUSTOMER PROGRAM SPECIALIST Temperature - - Respiratory Rate - - Oxygen Saturation 97% 07/12/2023 8:41 AM CUSTOMER PROGRAM SPECIALIST Inhaled Oxygen Concentration - - Weight 79.4 kg (175 lb) 07/12/2023 8:41 AM CUSTOMER PROGRAM SPECIALIST Height 160 cm (5' 3) 07/12/2023 8:41 AM CUSTOMER PROGRAM SPECIALIST Body Mass Index 31 07/12/2023 8:41 AM CUSTOMER PROGRAM SPECIALIST Plan of Treatment Health Maintenance Due [...] to complete this topic Insurance Care Teams Cafe Worker Relationship Specialty Start Date End Date Teresita Brantley MD [address] [place] [address] [phone] PCP - General 10/31/20
--- OUTSIDE RECORDS SUMMARY | 2025-05-25 22:28 | XMS_ITS | Clinical Summary ---
Author Organization [facility] Address [address] [place] [address] Care Team Providers Care Ash Conveyor Operator Name Role Phone Iqra Bonds Primary Care Provider [phone] Allergies No known active allergies Medications aspirin [...] on file Legal Sex Female 2:23 AM STAFF PHYSICIAN Gender Identity Not on file Sexual Orientation Not on file Last Filed Vital Signs Vital Sign Reading Time Taken Comments Blood Pressure 122/78 04/26/2023 3:05 PM STAFF PHYSICIAN Pulse 84 04/26/2023 3:05 PM STAFF PHYSICIAN Temperature 36.9 C (98.5 F) 12/16/2022 8:50 PM CDT Respiratory Rate 16 12/16/2022 8:50 PM CDT Oxygen Saturation 98% 04/26/2023 3:05 PM STAFF PHYSICIAN Inhaled Oxygen Concentration - - Weight 79.9 kg (176 lb 2.4 oz) 04/26/2023 3:05 P M STAFF PHYSICIAN Height 160 cm (5' 3) 12/16/2022 5:22 [...] (#1) 2025 Medical Devices Implanted Type Area Practice Coordinator Device Identifier Shelf Expiration Date Model / Serial / Lot Plate Plate Left: Ankle Insurance [facility] ANTHEM ACCESS CHOICE ANTHEM ACCESS CHOICE Care Teams Ash Conveyor Operator Relationship Specialty Start Date End Date Iqra Bonds PA [address] [place] [id number] PCP - General Physician Casing In Line Feeder 10/09/22
[2025-05-25] MEDS: DICYCLOMINE HCL INJ 20 MG/2 ML VIAL IM (23:48)
[2025-05-25] MEDS: MORPHINE SULFATE (*CRX) 4 MG/ML INJ IV PUSH (23:48)
[2025-05-25] MEDS: ONDANSETRON INJ 4 MG/2 ML VIAL IV PUSH (23:49)
[2025-05-26] VITALS (20 sets, daily range): BP systolic 110–151; BP diastolic 53–102; PULSE 82–90; RESP 7–18; O2SAT 96–99
[2025-05-26] LABS: BEDSIDEPREGUCG Negative (Negative)
[2025-05-26 00:10] LABS: Magnesium 1.6 mg/dL (1.6-2.3)
[2025-05-26 00:20] LABS: Add Urine Microscopic? YES; Appearance Urine Clear (Clear); Glucose Urine UA Negative (Negative); Leukocyte Esterase Ur Negative LEU/UL (Negative); Nitrate Urine Negative (Negative); Specific Grav Ur > 1.045 (1.001-1.035)
[2025-05-26] MEDS: MAGNESIUM SULF 1 GM/D5W 100 ML 1 GM/100 ML BAG IVPB (00:49)
[2025-05-26 01:37] LABS: Hematocrit 39.6 % (37.0-47.0); Hemoglobin 13.7 g/dL (12.0-15.0)
[2025-05-26] MEDS: KETOROLAC 15 MG/ML VIAL (*BKC) IV PUSH (02:19)
== END 2025-05-26 02:30 | disposition home or self-care (01) ==
PROVIDERS: Physician Assistant; Emergency Provider Student in an Organized Health Care Education/Training Program
DX: K52.9 Noninfective gastroenteritis and colitis, unspecified (principal); K92.1 Melena; R16.0 Hepatomegaly, not elsewhere classified; G89.4 Chronic pain syndrome; K21.9 Gastro-esophageal reflux disease without esophagitis; F32.A Depression, unspecified; F41.9 Anxiety disorder, unspecified; Z90.49 Acquired absence of other specified parts of digestive tract; F17.210 Nicotine dependence, cigarettes, uncomplicated; Z79.899 Other long term (current) drug therapy
CPT/HCPCS: 36415; 74177; 80053; 81001; 81025; 83605; 83735; 85014; 85018; 85025; 85610; 85730; 86850; 86900; 86901; 96365; 96372; 96375; 99284; J0500; J1885; J2270; J2405; J3475; Q9967